=== PATIENT | female | born 1955 | race Caucasian/White ===

== ENCOUNTER 2022-02-18 19:34 | Emergency (ER) | payer OTHER ==
[2022-02-18] MEDS ORDERED: ACETAMINOPHEN 500 MG TAB ONE (20:56)
--- NOTE | 2022-02-18 21:09 | RAD REPORT ---
EXAM DESCRIPTION: RAD - Ankle Left 3 View - 02/18/2022 8:54 pm CLINICAL HISTORY: Pain;Swelling COMPARISON: No comparisons FINDINGS: No fracture, dislocation or periosteal reaction. No joint effusion seen. No joint space na rrowing. Spurring changes are seen at the inferior aspect of the fibula and medial malleolus. Minimal avulsion from the tip of the medial malleolus cannot be excluded though this usually does not occur within inversion injury. Significant lateral soft tissue swelling is present. IMPRESSION: Left ankle soft tissue swelling with no fracture confirmed. The punctate bone density at the tip of the medial malleolus is probably chronic. The possibility of a small avulsion cannot be excluded though this usually does not occur with an inversion type injury.
--- NOTE | 2022-02-18 21:42 | EDPHYS ---
Physician Documentation [facility] Name: Edith Buck Age: 66 yrs Sex: Female : 1955 Arrival Date: 02/18/2022 Time: 19:41 Bed Treatment Private MD: ED Physician Torey Montenegro HPI: 02/18 20:30 This 66 yrs old Female presents to ER via Wheelchair with complaints of Left ankle pain.ms3 20:30 The patient presents with an injury, pain, that is acute, swelling, tenderness. The ms3 complaints affect the left ankle. Onset: The symptoms/episode began/occurred acutely, 1 hour(s) ago. Context: The problem was sustained at home, resulted from the patient falling, Deck, The mechanism of injury involved inversion of the affected ankle. Associated signs and symptoms: Pertinent positives: swelling. Modifying factors: The symptoms are alleviated by ice packs, the symptoms are aggravated by weight bearing, movement. Severity of symptoms: At their worst the symptoms were severe, in the emergency department the symptoms are unchanged. 6-year-old female with no past medical history presents for left ankle pain that began 1 hour prior to arrival after falling off a deck. Patient states she twisted her ankle when falling. Patient states her pain is a 10/10 states the pain is throbbing. Patient states the pain is better when applying ice to the area. Patient states pain is worse with bearing weight.. Historical: - Allergies: 19:49 No Known Allergies; ab2 - PMHx: 19:49 None; ab2 - PSHx: 19:49 None; ab2 - Immunization history:: Adult Immunizations up to date. - Social history:: Smoking status: Patient reports the use of cigarette tobacco products, smokes one-half pack cigarettes per day. ROS: 20:30 Constitutional: Negative for fever, and chills. Eyes: Negative for injury, pain, ms3 redness, and discharge, Neck: Negative for injury, pain, and swelling, Cardiovascular: Negative for chest pain, and palpitations. Respiratory: Negative for shortness of breath, cough, wheezing, and pleuritic chest pain, Abdomen/GI: Negative for abdominal pain, nausea, vomiting, diarrhea, and constipation, Skin: Negative for injury, rash, and discoloration, Neuro: Negative for headache, weakness, numbness, tingling. Psych: Negative for depression, anxiety, suicide ideation, homicidal ideation, and hallucinations. 20:30 MS/extremity: Positive for pain, swelling, tenderness, of the Left ankle. Exam: 20:30 Constitutional: This is a well developed, well nourished patient who is awake, alert, ms3 and in no acute distress. Head/Face: Normocephalic, atraumatic. Neck: Trachea midline, no cervical lymphadenopathy. Supple, full range of motion without nuchal rigidity, or vertebral point tenderness. No Meningismus. Chest/axilla: Normal chest wall appearance and motion. Nontender with no deformity. Cardiovascular: Regular rate and rhythm with a normal S1 and S2. No gallops, murmurs, or rubs. Normal PMI, no JVD. No pulse deficits. Respiratory: Lungs have equal breath sounds bilaterally, clear to auscultation and percussion. No rales, rhonchi or wheezes noted. No increased work of breathing, no retractions or nasal flaring. Abdomen/GI: Soft, non-tender, with normal bowel sounds. No distension or tympany. No guarding or rebound. No evidence of tenderness throughout. Skin: Warm, dry with normal turgor. Normal color with no rashes, no lesions, and no evidence of cellulitis. Psych: Awake, alert, with orientation to person, place and time. Behavior, mood, and affect are within normal limits. 20:30 Musculoskeletal/extremity: Extremities: noted in the Left ankle: ROM: limited active range of motion due to pain, in the left lateral ankle, Circulation is intact in all extremities. Sensation intact. Compartment Syndrome exam of affected extremity: is normal. no pain, no numbness, no tingling, no sensation deficit, no palor, no weak pulses. Vital Signs: 19:48 BP 155 / 65; Pulse 77; Resp 18; Temp 97.5(TE); Pulse Ox 98% on R/A; Weight 68.49 kg; ab2 Height 5 ft. 4 in. (162.56 cm); Pain 10/10; 21:34 BP 149 / 60; Pulse 72; Resp 18; Pulse Ox 100% ; ld1 19:48 Body Mass Index 25.92 (68.49 kg, 162.56 cm) ab2 MDM: 20:28 Patient medically screened. ms3 20:30 Differential diagnosis: fracture, sprain. ms3 02/19 01:47 Data reviewed: vital signs, nurses notes, radiologic studies, plain films. Counseling: ms3 I had a detailed discussion with the patient and/or guardian regarding: the historical points, exam findings, and any diagnostic results supporting the discharge/admit diagnosis, radiology results, the need for outpatient follow up, to return to the emergency department if symptoms worsen or persist or if there are any questions or concerns that arise at home. ED course: Discussed plain film findings with patient. Discussed with patient subtle acute fractures may not appear on acute x-rays. If patient's pain persist in 1 week patient may require additional imaging. Patient to follow up with Dr Garibay. Patient understands agrees with plan. All questions were answered. Return precautions discussed include worsening symptoms, or any other concerns. On reevaluation patient is alert and oriented x4, no apparent distress, nontoxic-appearing, no signs of compartment syndrome present.. 02/18 20:28 Order name: Ankle Left 3 View XRAY; Complete Time: 21:41 ms3 Administered Medications: 02/18 20:54 Drug: Tylenol 1000 mg Route: PO; ld1 Disposition Summary: 02/18/22 21:41 Discharge Ordered Location: Home ms3 Condition: Stable ms3 Diagnosis - Pain in left ankle and joints of left foot ms3 - Sprain of unspecified ligament of left ankle ms3 Followup: ms3 - With: Parish Pete MD - When: 2 - 3 days - Reason: Forms: - Medication Reconciliation Form ms3 - Thank You Letter ms3 - Antibiotic Education ms3 - Prescription Opioid Use ms3 Signatures: Dispatcher [employer] EDMS Torey Montenegro DO DO ms3 Narcisa Fofana, RN RN ld1 Ken Denney
--- NOTE | 2022-02-18 21:42 | ER ---
Nurse's Notes [facility] Name: Edith Buck Age: 66 yrs Sex: Female : 1955 Arrival Date: 02/18/2022 Time: 19:41 Bed Treatment Private MD: Diagnosis: Pain in left ankle and joints of left foot;Sprain of unspecified ligament of left ankle Presentation: 02/18 19:48 Chief complaint: Patient states: "I was cleaning the back yard and stepped down and ab2 rolled my ankle." Pt c/o L ankle pain. Coronavirus screen: Vaccine status: Patient reports receiving the 2nd dose of the covid vaccine. Client denies travel out of the [place] in the last 14 days. At this time, the client does not indicate any symptoms associated with coronavirus-19. Ebola Screen: Patient negative for fever greater than or equal to 101.5 degrees Fahrenheit, and additional compatible Ebola Virus Disease symptoms Patient denies exposure to infectious person. Patient denies travel to an Ebola-affected area in the 21 days before illness onset. No symptoms or risks identified at this time. Initial Sepsis Screen: Does the patient meet any 2 criteria? No. Patient's initial sepsis screen is negative. Does the patient have a suspected source of infection? No. Patient's initial sepsis screen is negative. Risk Assessment: Do you want to hurt yourself or someone else? Patient reports no desire to harm self or others. Onset of symptoms is unknown. 19:48 Method Of Arrival: Wheelchair ab2 19:48 Acuity: FLORA 4 ab2 Triage Assessment: 19:50 General: Appears in no apparent distress. uncomfortable, Behavior is calm, cooperative, ab2 appropriate for age. Pain: Complains of pain in left lateral ankle. Neuro: Level of Consciousness is awake, alert, obeys commands, Oriented to person, place, time, situation, Appropriate for age. Musculoskeletal: Reports pain in left lateral ankle. Historical: - Allergies: 19:49 No Known Allergies; ab2 - PMHx: 19:49 None; ab2 - PSHx: 19:49 None; ab2 - Immunization history:: Adult Immunizations up to date. - Social history:: Smoking status: Patient reports the use of cigarette tobacco products, smokes one-half pack cigarettes per day. Screenin:34 Abuse screen: Denies threats or abuse. Denies injuries from another. Nutritional ld1 screening: No deficits noted. Tuberculosis screening: No symptoms or risk factors identified. Fall Risk None identified. Assessment: 21:34 General: Appears in no apparent distress. comfortable, Behavior is calm, cooperative, ld1 appropriate for age. Pain: Complains of pain in left foot and left leg Pain does not radiate. Pain currently is 6 out of 10 on a pain scale. Quality of pain is described as throbbing. Neuro: Level of Consciousness is awake, alert, obeys commands, Oriented to person, place, time, situation. Cardiovascular: Capillary refill < 3 seconds Patient's skin is warm and dry. Respiratory: Airway is patent Respiratory effort is even, unlabored. GI: Abdomen is flat, non-distended. : No signs and/or symptoms were reported regarding the genitourinary system. EENT: No signs and/or symptoms were reported regarding the EENT system. Derm: No signs and/or symptoms reported regarding the dermatologic system. Musculoskeletal: No signs and/or symptoms reported regarding the musculoskeletal system. Vital Signs: 19:48 BP 155 / 65; Pulse 77; Resp 18; Temp 97.5(TE); Pulse Ox 98% on R/A; Weight 68.49 kg; ab2 Height 5 ft. 4 in. (162.56 cm); Pain 10/10; 21:34 BP 149 / 60; Pulse 72; Resp 18; Pulse Ox 100% ; ld1 19:48 Body Mass Index 25.92 (68.49 kg, 162.56 cm) ab2 ED Course: 19:41 Patient arrived in ED. ja2 19:49 Triage completed. ab2 19:50 Torey Montenegro DO is Attending Physician. ms3 19:50 Arm band placed on right wrist. ab2 20:53 Narcisa Fofana, SALAS is Primary Nurse. ld1 20:56 Ankle Left 3 View XRAY In Process Unspecified. EDMS 21:34 Patient has correct armband on for positive identification. Placed in gown. Bed in low ld1 position. Call light in reach. Side rails up X2. environmental monitoring technician on. Pulse ox on. NIBP on. Door closed. Noise minimized. Warm blanket given. 21:34 No provider procedures requiring assistance completed. Patient did not have IV access ld1 during this emergency room visit. 21:41 Parish Pete MD is Referral Physician. ms3 Administered Medications: 20:54 Drug: Tylenol 1000 mg Route: PO; ld1 Outcome: 21:41 Discharge ordered by . ms3 21:51 Discharged to home ambulatory. ld1 21:51 Condition: stable 21:51 Discharge instructions given to patient, Instructed on discharge instructions, follow up and referral plans. Demonstrated understanding of instructions, follow-up care. 21:52 Patient left the ED. ld1 Signatures: Dispatcher [employer] EDMS Torey Montenegro DO DO ms3 Narcisa Fofana RN RN ld1 Freda Sena Alexis ab2
[2022-02-19 02:34] VITALS: TEMP 97.5
[2022-02-19 02:35] VITALS: BP 149/60; O2SAT 100
== END 2022-02-18 21:52 | disposition home or self-care (01) ==
LOC: ER 19:34
DX: S93.402A Sprain of unspecified ligament of left ankle, initial encounter (principal); W17.89XA Other fall from one level to another, initial encounter; F17.210 Nicotine dependence, cigarettes, uncomplicated
CPT/HCPCS: 99284

== ENCOUNTER 2023-03-18 14:36 | Emergency (ER) | payer OTHER ==
--- OUTSIDE RECORDS SUMMARY | 2023-03-18 14:40 | XMS REPORT | Continuity of Care Document ---
:1955 Author Organization [facility] t Address [address] [facility] [address] [place] [address] Care Team Providers Name Role Phone Records, [facility] - Other - Primary Care Physician Thais tanishailaabel Go RN, Michelle Burris Attending Clinician Unavailable Lisa JERONIMO, Rach Murphy Attending Clinician RACH GONZALEZ Attending Clinician Unavailable Payers Payer Name Policy Type Policy Number Effective Date Expiration Date S ource Problems This patient has no known problems. Allergies, Adverse Reactions, Alerts Allergy Allergy Status Severity Reaction(s) Onset Inactive Treating Comm ents Source Name Type Date Date Clinician CODEINE [facility] [place]ICILL Allergy Active [facility] Codeine Propensi Active [facility] adverse 00:00: Medical reaction 00 Obion s Penicill Propensi Active [facility] adverse 00:00: Medical reaction 00 Obion s Family History Family Member Diagnosis Comments Start Date Stop Date Source Natural brother Liver disease [facility] Natural father Heart failure [facility] Natural mother Heart disease [facility] Natural sister Breast cancer [facility] Social History Social Habit Start Date Stop Date Quantity Comments Source Tobacco use and 2023-03-10 2023-03-10 [address] [facility]00 non-user [facility] Alcohol intake 2023-03-10 2023-03-10 [facility] (finding) Sex Ass[birth year] [facility] 00:00:00 00:00:00 [facility] Center Smoking Status Start Date Stop Date Source Never smoked tobacco [facility] Medications Ordered Filled Start Stop Current Ordering Indication Dosage Frequency Signature Comments Components Source Medication Medication Date Date Medication? Clinician (SIG) Name Name Ginger Yes 20meq QD Take [address] [facility] M20 20 mEq 4-24 tablet (20 Roney es tablet 00:00: mEq total) Medic al 00 by mouth Center in the morning. amLODIPine Yes 10mg QD Take 1 [facility] (NORVASC) 4-11 tablet (10 Luke s 10 MG 00:00: mg total) Medical tablet 00 by mouth Center in the morning. pantoprazol Yes Take by [facility] e 3-13 mouth. [facility] (PROTONIX) 00:00: Medical 40 MG 00 Center tablet Vital Signs Vital Name Observation Time Observation Value Comments Source Systolic blood 2023-03-10 10:20:00 149 mm[Hg] [facility] pressure [facility] Diastolic blood 2023-03-10 10:20:00 76 mm[Hg] [facility] S t [facility] Heart rate 2023-03-10 10:20:00 86 /min [facility] Body temperature 2023-03-10 10:20:00 36.78 Maryuri [facility] Respiratory rate 2023-03-10 10:20:00 18 /min [facility] Body height 2023-03-10 10:20:00 162.6 cm [facility] Body weight 2023-03-10 10:20:00 71.033 kg [facility] BMI 2023-03-10 10:20:00 26.88 kg/m2 [facility] Oxygen saturation in 2023-03-10 10:20:00 95 /min [facility] Arterial blood by Medical Ce nter Pulse oximetry Procedures Procedure Date / Time Performing Clinician Source Performed LIVER FIBROSIS, 2023-03-10 12:15:00 Rach Gonzalez [facility] FIBROTEST-ACTITEST PANEL [facility] BASIC METABOLIC PANEL 2023-03-10 12:07:00 Rach Gonzalez [facility] HEPATIC FUNCTION PANEL 2023-03-10 12:07:00 Rach Gonzalez [facility] CBC W/PLT COUNT & AUTO 2023-03-10 12:07:00 Rach Gonzalez [facility] PROTHROMBIN TIME/INR 2023-03-10 12:07:00 Rach Gonzalez [facility] ALPHA FETOPROTEIN (AFP), 2023-03-10 12:07:00 Rach Gonzalez [facility] TUMOR MARKER [facility] HEPATITIS C GENOTYPE 2023-03-10 12:07:00 Rach Gonzalez [facility] HEPATITIS C PCR, 2023-03-10 12:07:00 Rach Gonzalez [facility] LAB HIV-1 AG W/HIV-1&2 2023-03-10 12:07:00 Rach Gonzalez [facility] HEPATITIS B CORE ANTIBODY, 2023-03-10 12:07:00 Rach Gonzalez [facility] HEPATITIS A ANTIBODY, IGG 2023-03-10 12:07:00 Rach Gonzalez [facility] CARBOHYDRATE ANTIGEN 19-9 2023-03-10 12:07:00 Rach Gonzalez [facility] ([place] 19-9) [facility] CARCINOEMBRYONIC ANTIGEN 2023-03-10 12:07:00 Rach Gonzalez [facility] (CEA) [facility] CBC W/PLT COUNT & AUTO 2023-03-10 12:07:00 Rach Gonzalez [facility] Plan of Care Planned Activity Planned Date Details Comments Source Future Scheduled 2024-03-[address] [facility] 00:00:00 Counseling and Medical Cente r Screening (12+) [code = Tobacco Cessation Counseling and Screening (12+)] Future Scheduled 2023-07-15 INFLUENZA VACCINE [facility] 00:00:00 (Season Ended) [code = Medic al Center INFLUENZA VACCINE (Season Ended)] Future Scheduled 2022-11-[address] [facility] Test 00:00:00 (12+) [code = Medical Center DEPRESSION SCREENING (12+)] Future Scheduled 2022-11-14 FALLS RISK SCREENING [facility] Test 00:00:00 [code = FALLS RISK Medical C enter SCREENING] Future Scheduled 2022-11-14 Medicare IPPE (WELCOME [facility] 00:00:00 TO MEDICARE) [code = Medical Center Medicare IPPE (WELCOME TO MEDICARE)] Future Scheduled 2021 PNEUMOCOCCAL 65+ YRS ([address] [facility] Test 00:00:00 - PCV) [code = Medical Cente r PNEUMOCOCCAL 65+ YRS (1 - PCV)] Future Scheduled 2006 SHINGLES VACCINES ([address] [facility] Test 00:00:00 2) [code = SHINGLES Medical Center VACCINES (1 of 2)] Future Scheduled 1975 DTAP/TDAP/TD VACCINES [facility] Test 00:00:00 (1 - Tdap) [code = Medical C enter DTAP/TDAP/TD VACCINES (1 - Tdap)] Future Scheduled 1955 COVID-19 VACCINE (#1[facility] Test 00:00:00 [code = COVID-[address] VACCINE (#1)] Future Scheduled 1956 Screening for malignant [facility] Test 00:00:00 neoplasm of breast Medical C enter (procedure) [code = 003943930] Future Scheduled 1956 CT Colonography (combo) [facility] Test 00:00:00 [code = CT Colonography [facility] (combo)] Future Scheduled 1956 Screening for malignant [facility] Test 00:00:00 neoplasm of colon Medical Ce nter (procedure) [code = 851639660] Future Scheduled 1956 Screening for malignant [facility] Test 00:00:00 neoplasm of colon Medical Ce nter (procedure) [code = 578823295] Future Scheduled 1955 DXA SCAN [code = DXA [facility] Test 00:00:00 SCAN] [facility] Future Scheduled 1956 Screening for malignant [facility] Test 00:00:00 neoplasm of colon Medical Ce nter (procedure) [code = 817684975] Future Scheduled 1956 Screening for malignant [facility] Test 00:00:00 neoplasm of colon Medical Ce nter (procedure) [code = 271226909] Future Scheduled 1955 Sigmoidoscopy [facility]code [facility]] Medical Cente r Encounters Start End Encounter Admission Attending Care Care Encounter Source Date/Time Date/Time Type Type Clinicians Facility Department ID 2022-02-25 Outpatient [facility] [id number] Common 10:04:02 [facility] 2023-03-11 2023-03-11 Documentat Donavan [facility] [id number] 00:[facility] 00:00:00 ion Michelle [facility] 2023-03-10 2023-03-10 Office Lisa [facility] [id number] 10:00:00 11:00:00 Visit [facility] 2023-03-10 2023-03-10 Outpatient [facility] [id number] [facility] 00:00:00 00:00:00 [facility] 2023-03-08 2023-03-08 Outpatient SFA SFA [id number] [place] 16:19:28 16:19:28 [id number] [place] 2022-12-22 2022-12-22 Outpatient SFA SFA [id number] [place] 09:20:05 09:20:05 [id number] [facility] [place] 2022-12-01 2022-12-01 Outpatient SFA SFA [id number] [place] 09:41:49 09:41:49 [id number] [place] 2022-11-18 2022-11-18 Outpatient SFA SFA [id number] [place] 16:40:54 16:40:54 [id number] [facility] [place] 2022-11-11 2022-11-11 Outpatient SFA SFA [id number] [place] 08:28:15 08:28:15 [id number] [facility] [place] 2022-11-02 2022-11-02 Outpatient SFA SFA [place] 09:34:36 09:34:36 [facility] 2022-10-05 2022-10-05 Outpatient SFA SFA [place] 10:47:07 10:47:07 [facility] 2022-09-20 2022-09-20 Outpatient SFA SFA [place] 13:28:34 13:28:34 [facility] 2022-09-09 2022-09-09 Outpatient SFA SFA [place] 13:45:17 13:45:17 [facility] 2022-09-08 2022-09-08 Outpatient SFA SFA [place] 17:20:04 17:20:04 [facility] 2022-08-25 2022-08-25 Outpatient SFA SFA [place] 10:39:31 10:39:31 [facility] 2022-08-19 2022-08-19 Outpatient SFA SFA [place] 09:39:44 09:39:44 [facility] 2022-08-17 2022-08-17 Outpatient SFA SFA [place] 15:23:19 15:23:19 [facility] Results Test Description Test Time Test Comments Results Result Comments Source Liver Fibrosis, FibroTest-ActiTest Panel 2023-03-17 12:21:57 Test Item Value Reference Range Interpretation Comme nts Fibrosis Score (test code 0.96 = 3925335) Fibrosis Stage (test code F4 = 6698325) FIBROSIS INTERPRETATION SEE BELOW sev ere fibrosis Fibro Test (QUEST) (test code = Score ( f) Metavir Score f>=0 20151222) and f<=0.21 : F 0 (no fibrosis)f>0.21 and f<=0.27 : F0-F1 (no fib rosis)f>0.27 and f<=0.31 : F 1 (minimal fibrosis)f>0.31 and f<=0.48 : F1-F2 (minima l fibrosis)f>0.48 and f<=0.58 : F2 (moderate fibrosis)f>0.58 and f<=0.72 : F3 (advanced fibrosis)f>0.72 and f<=0.74 : F3-F4 (advanc ed fibrosis)f>0.74 and f<=1.00 : F4 (severe fibrosis) Necroinflammat Activity A1-A2 Grade (test code = 59722-2) NECROINFLAMMAT INTERP SEE BELOW minim al activity ActiTest (QUEST) (test code = Score ( a) Metavir Score a>=0 20151223) and a<=0.17 : A 0 (no activity)a>0.17 and a<=0.29 : A0-A1 (no act ivity)a>0.29 and a<=0.36 : A 1 (minimal activity)a>0.36 and a<=0.52 : A1 -A2 (minimal activity)a>0.52 and a<=0.60 : A2 (significa nt activity)a>0.60 and a<=0.62 : A2-A3 (signif icant activity)a>0.62 and a<=1.00 : A3 (severe ac tivity) Bilirubin, Total (test 2.1 mg/dL 0.2-1.2 H Suspi cion of Gilbert code = ) syndrome or hemolysis, check non conjugated bilirubin. Check if haemol ysis as bilirubin is hi gh and haptoglobin low . GGT (test code = 9738893) 34 U/L 3-65 Irby spicion of Gilbert syndrome or hem olysis, check non conjugated bilirubin. ALT (SGPT) (test code = 35 U/L 6-29 H ) ALPHA 2 MACROGLOBULIN 327 mg/dL 106-279 H (QUEST) (test code = 1329538) Haptoglobin (test code = <8 43-212 L Rachel ck if haemolysis as ) bilirubin is hi gh and haptoglobin low . Apolipoprotein A-1 (test 97 mg/dL 101-198 L code = 8303218) NECROINFLAM ACT SCORE 0.38 (QUEST) (test code = 5054874) REFERENCE ID (QUEST) [id number] (test code = 4344855) FOOTNOTE (QUEST) (test SEE BELOW The reliability of results code = 5513818) is dependent on compliance with the preana lytical and analytical cond itions recommended by [employer]. The tests have to be defe rred for: acute hemolysis , acute hepatitis, acut e inflammation, e xtra hepatic cholestasis. Th e advice of a specialist subhash ld be sought for interpretat ion in chronic hemolys is and Gilbert's syndr ome. The test interpretation is not validated in li bhupinder transplant melvina ents. Isolated extrem e values of one of the comp onents should lead to caution in interpreting th e results. In case of discord ance between a biopsy result and a test, it is recommend ed to seek the advice of a specialist. The causes of t hese discordances co uld be due to a flaw of the t est or to a flaw in the bio psy: i.e. a liver biopsy mcnulty s a 33% variability rat e for one fibrosis stage. FibroTest is interpretable f or chronic hepatitis B and C, alcoholic and non alcohol ic steatosis. ActiTest is int erpretable for chronic hep atitis B and C. The performa nce characteristics have been determined by [facility]. It has not been cleared or appr ovedby the U.S. Food and D rug Administration. Performance characteristics referto the analytical perf ormance of the test. Quest , [employer], th e associated logo, Nisa Diaz nstitute and allassociated [employer] xiomy weber are the registered trad emarks of [employer]. All third democrat huynh - ( R) and (TM) - are the propert y of theirrespective owners. (C) [phone] [employer]. A ll rightsreserved. WILVER (test code = WILVER) Performing Lab EZ [employer] [facility] [address] [facility] [address] Joe Rodriguez MD, PhD, SCOTT Lab Interpretation (test Abnormal code = 75867-5) [facility], [id number] 05:44:38 Test Item Value Reference Range Interpretation Comments HCV NUMERIC RESULT (BEAKER) 1059357 IU/mL <15 H (test code = 2700) ALPHA FETOPROTEIN (AFP), TUMOR [id number] 14:56:57 Test Item Value Reference Range Interpretation Comments ALPHA-FETOPROTEIN (BEAKER) (test 9109.5 ng/mL <10.0 H code = 1094) Vp Product Management ID - ADMINOperator ID - ADMINHEPATITIS A ANTIBODY, [id number] 14:52:32 Test Item Value Reference Range Interpretation Comments HEPATITIS A IGG ANTIBODY (BEAKER) Nonreactive Nonreactive (test code = 2797) Vp Product Management ID - ADMINHEPATITIS B CORE ANTIBODY, [id number] 14:52:32 Test Item Value Reference Range Interpretation Comments HEPATITIS B CORE TOTAL ANTIBODY Nonreactive Nonreactive (BEAKER) (test code = 497) Vp Product Management ID - ADMINHIV-1 ANTIGEN WITH HIV-1/2 [id number] 14:52:32 Test Item Value Reference Range Interpretation Comments HIV-1 ANTIGEN WITH HIV 1\T\2 Nonreactive Nonreactive ANTIBODY (2) (BEAKER) (test code = 2586) Vp Product Management ID - ADMINCARCINOEMBRYONIC ANTIGEN (CEA)2023-03-10 14:52:26 Test Item Value Reference Range Interpretation Comments CARCINOEMBRYONIC ANTIGEN (BEAKER) 4.1 ng/mL 0.0-5.0 (test code = 685) Vp Product Management ID - ADMINBASIC METABOLIC [id number] 14:07:03 Test Item Value Reference Range Interpretation Comments SODIUM (BEAKER) 135 meq/L 136-145 L (test code = 381) POTASSIUM 3.6 meq/L 3.5-5.1 (BEAKER) (test code = 379) CHLORIDE (BEAKER) 103 meq/L 98-107 (test code = 382) CO2 (BEAKER) 23 meq/L 22-29 (test code = 355) BLOOD UREA 11 mg/dL 7-21 NITROGEN (BEAKER) (test code = 354) CREATININE 0.75 mg/dL 0.57-1.25 (BEAKER) (test code = 358) GLUCOSE RANDOM 84 mg/dL 70-105 (BEAKER) (test code = 652) CALCIUM (BEAKER) 8.6 mg/dL 8.4-10.2 (test code = 697) EGFR (BEAKER) 88 Interpretatio n of eGFR (test code = mL/min/1.73 values Stage De scription 1092) sq m Result G1 Che l or high >=90 G2 Mildly decreased 60-89 G3a Mildl y to moderately 45-5 9 G3b Moderately to s everely 30-44 G4 Severl y decreased 15-29 G5 Kidney failure <15Reported eGF R is based on the CKD-EPI 202 equation that d oes not use a race coefficientEsti mated GFR is not as accur ate as Creatinine Sveta molly in predicting glom erular filtration rate . Estimated GFR is not appl icable for dialysis patien ts Vp Product Management ID - ADMINSpecimen slightly ictericHEPATIC FUNCTION [id number] 14:07:03 Test Item Value Reference Range Interpretation Comments TOTAL PROTEIN (BEAKER) (test code = 6.9 gm/dL 6.0-8.3 770) ALBUMIN (BEAKER) (test code = 1145) 3.3 g/dL 3.5-5.0 L BILIRUBIN TOTAL (BEAKER) (test code 3.1 mg/dL 0.2-1.2 H = 377) BILIRUBIN DIRECT (BEAKER) (test 1.6 mg/dL 0.1-0.5 H code = 706) ALKALINE PHOSPHATASE (BEAKER) (test 100 U/L 40-150 code = 346) AST (SGOT) (BEAKER) (test code = 75 U/L 5-34 H 353) ALT (SGPT) (BEAKER) (test code = 39 U/L 6-55 347) Vp Product Management ID - ADMINSpecimen slightly ictericPROTHROMBIN TIME/[id number] 13:25:20 Test Item Value Reference Range Interpretation Comments PROTIME (BEAKER) (test code = 16.1 seconds 11.9-14.2 H 759) INR (BEAKER) (test code = 370) 1.38 <=5.90 RECOMMENDED COUMADIN/WARFARIN INR THERAPY RANGESSTANDARD DOSE: 2.0 - 3.0 Includes: PROPHYLAXIS for venous thrombosis, systemic embolization; TREATMENT for venous thrombosis and/or pulmonary embolus.HIGH RISK: Target INR is 2.5-3.5 for patients with mechanical heart valves.CBC W/PLT COUNT & AUTO [id number] 13:17:55 Test Item Value Reference Range Interpretation Comments WHITE BLOOD CELL COUNT (BEAKER) 5.5 K/ L 3.5-10.5 (test code = 775) RED BLOOD CELL COUNT (BEAKER) 4.14 M/ L 3.93-5.22 (test code = 761) HEMOGLOBIN (BEAKER) (test code = 12.7 GM/DL 11.2-15.7 410) HEMATOCRIT (BEAKER) (test code = 36.8 % 34.1-44.9 411) MEAN CORPUSCULAR VOLUME (BEAKER) 89 fL 79-95 (test code = 753) MEAN CORPUSCULAR HEMOGLOBIN 30.7 pg 25.6-32.2 (BEAKER) (test code = 751) MEAN CORPUSCULAR HEMOGLOBIN CONC 34.5 GM/DL 32.2-35.5 (BEAKER) (test code = 752) RED CELL DISTRIBUTION WIDTH 15.0 % 11.7-14.4 H (BEAKER) (test code = 412) PLATELET COUNT (BEAKER) (test 160 K/CU MM 150-450 code = 756) MEAN PLATELET VOLUME (BEAKER) 10.3 fL 9.4-12.3 (test code = 754) NUCLEATED RED BLOOD CELLS 0 /100 WBC 0-0 (BEAKER) (test code = 413) NEUTROPHILS RELATIVE PERCENT 64 % (BEAKER) (test code = 429) LYMPHOCYTES RELATIVE PERCENT 24 % (BEAKER) (test code = 430) MONOCYTES RELATIVE PERCENT 9 % (BEAKER) (test code = 431) EOSINOPHILS RELATIVE PERCENT 2 % (BEAKER) (test code = 432) BASOPHILS RELATIVE PERCENT 1 % (BEAKER) (test code = 437) NEUTROPHILS ABSOLUTE COUNT 3.53 K/ L 1.56-6.13 (BEAKER) (test code = 670) LYMPHOCYTES ABSOLUTE COUNT 1.31 K/ L 1.18-3.74 (BEAKER) (test code = 414) MONOCYTES ABSOLUTE COUNT (BEAKER) 0.49 K/ L 0.24-0.36 H (test code = 415) EOSINOPHILS ABSOLUTE COUNT 0.09 K/ L 0.04-0.36 (BEAKER) (test code = 416) BASOPHILS ABSOLUTE COUNT (BEAKER) 0.07 K/ L 0.01-0.08 (test code = 417) IMMATURE GRANULOCYTES-RELATIVE 0.20 % 0.00-1.00 PERCENT (BEAKER) (test code = 2801) HEPATITIS C [id number] 13:15:29 Test Item Value Reference Range Interpretation Comments HEPATITIS C GENOTYPE 3 Assay methodology is (test code = 77184) real-micheal e PCR amplification of the 5'UTR an dNS5b regions of the HCV lisa me utilizing the VODECLIC Real Time HCVGenotype II assay and Holm HCV Lisa type Plus assay. Possible genotypes include 1a, 1b, 2, 3, 4, 5, and 6. UNLESS O THERWISE INDICATED, ALL TESTING PERFORMED [facility] PATHOLOGY FOR[facility], [facility]. [address] [place] [id number] LABORATOR Y DIRECTOR: JORGE CONDE M.D. CLIA NUMBER [id number] CAP ACCREDITATION N O. [id number] AFP, TUMOR [id number] 09:35:09 Test Item Value Reference Range Interpretation Comments AFP, TUMOR MARKER 33816.00 NG/ML See_Comment H [Automa murtaza message] (test code = The system [facility] Labsic h 71079) generated this result transmitted ref erence range: <=8.30. The reference range was not used to int erpret this result as normal/abnormal . DAVION (ANTI-NUCLEAR AB) WITH REFLEX [id number] 00:57:23 Test Item Value Reference Range Interpretation Comments ANTI-NUCLEAR POSITIVE NEGATIVE A ANTIBODIES (test code = 3506) DAVION PATTERN SEE BELOW (REPORTED TITER) (test code = 72115) HOMOGENEOUS (test 1:320 TITER NEGATIVE H code = 89640) SPECKLED (test NEGATIVE TITER NEGATIVE code = 420736) DENSE FINE NEGATIVE TITER NEGATIVE SPECKLED (test code = 29909) CENTROMERE (test NEGATIVE TITER NEGATIVE code = 016676) COARSE SPECKLED NEGATIVE TITER NEGATIVE (test code = 775734) DISCRETE NUCLEAR NEGATIVE TITER NEGATIVE DOTS (test code = 428699) NUCLEOLAR (test NEGATIVE TITER NEGATIVE code = 667300) NUCLEAR MEMBRANE NEGATIVE TITER NEGATIVE (test code = 627901) CYTO. RETICULAR NEGATIVE NEGATIVE (REUBEN) (test code = 875032) COMMENTS (test NONE code = 862602) METHOD (test code (NOTE) NOTE: EFF ECTIVE = 01182) 06/21/2022, MET HOD IS TRANSITIONED TO THE INOVADIAGNOSTIC S NOVA VIEW IFA PLATFO RM. THE METHOD INCLUDES A SCREENTHRESHOLD OF 1:80, DIGITIZED AND COMPUTER ALGORITHM-NOLBERTO TEDINTE RPRETATION OF T ITERS AND DIGITAL PAT TERNS, AND HEp-2 CELLL INE SUBSTRATE. FINESSE TIONAL UNUSUAL PATTERN S WILL BE GIVEN ASCOMM ENTS. FOR MORE INFORM ATION, SEE [email or web address] [id number] 06:51:48 Test Item Value Reference Range Interpretation Comments FERRITIN (test code = 2075) 333 NG/ML 13-200 H VITAMIN B 12 AND FOLIC [id number] 06:51:48 Test Item Value Reference Range Interpretation Comments VITAMIN B-12 (test 1938 PG/ML 200-950 H code = 2840) FOLIC ACID (test 6.6 UG/L SEE BELOW INTE RPRETIVE code = 2695) RANGES DE FICIENCY . . . . . . . . . . . . . . . UG/L <4.0 POSSIBLE DEFICIENCY. . . . . . . . . . . UG/L 4. 0-5.9 SUFFICIENT . . . . . . . . . . . . . . . UG/L >=6.0 UNLESS OT HERWISE INDICATED, ALL TESTING PERFORMED [facility] [email or web address], [facility]. [address] [place] [address] 4 LABORATORY DIRE CTOR: JORGE CONDE M.D. CLIA NUMBER [id number] [place] [id number] HEPATITIS PANEL, [id number] 05:14:35 Test Item Value Reference Range Interpretation Comments HEPATITIS A IgM (test NON-REACTIVE NON-REACTIVE code = 53472) HEPATITIS B CORE IgM NON-REACTIVE NON-REACTIVE (test code = 4644) HEPATITIS B SURF AG NON-REACTIVE NON-REACTIVE (test code = 2739) HEPATITIS C ANTIBODY REACTIVE NON-REACTIVE A (test code = 4675) INTERPRETATION (NOTE) Hepatitis A HEPATITIS A: (test serology shows no code = 2552) evidence of acu te hepatitis A. INTERPRETATION (NOTE) Hepatitis B HEPATITIS B: (test serology shows no code = 07661) evidence of ac [place] hepatitis B and no indication of exposure to hepatitis B vir us in the previous si xto eight months. INTERPRETATION (NOTE) Hepatitis C HEPATITIS C: (test serology is code = 82372) consistent wit h exposure to hepatitis Cviru s. The CDC recomme nds performing a supplemental confirmatory te ston initial positiv e hepatitis C ant ibody tests. HCV PCR quantitativecan be used to confirm these results o n a new sample (See MMWR, 2003;52 R R-3). [id number] 04:48:58 Test Item Value Reference Range Interpretation Comments GGT (test code = 2216) 63 U/L <40 H [id number] 04:48:58 Test Item Value Reference Range Interpretation Comments TRANSFERRIN (test code = 4936) 210 MG/DL 200-360 IRON BINDING CAPACITY AND IRON AND % [id number] 04:48:29 Test Item Value Reference Range Interpretation Comments IRON, SERUM (test code = 222) 117 UG/DL 37-145 UNSATURATED IBC (test code = 61223) 141 UG/DL 112-347 CALC TOTAL IBC (test code = 2076) 258 UG/DL 250-450 CALC % IRON SAT (test code = 2078) 45 % 20-50 HEMOGLOBIN [id number] 11:45:56 Test Item Value Reference Range Interpretation Comments HEMOGLOBIN A1c (test code = 88954) 5.0 % 4.2-5.6 LIPID [id number] 07:24:18 Test Item Value Reference Range Interpretation Comments CHOLESTEROL (test 158 MG/DL <200 code = 2210) TRIGLYCERIDES (test 60 MG/DL <150 code = 2232) HDL CHOLESTEROL (test 53 MG/DL >39 code = 2220) CALC LDL CHOL (test 90 MG/DL <100 NOTE: C ALCULATED LDL code = 2237) IS BASED ON RANDA-GRAVES METHOD WHICHINCLUDES ADJUSTABLE TRIGLYCERIDE:VL DL CHOLESTEROL RAT IO.THIS FACTOR VARIES B Y MEASURED TRIGLY CERIDE AND NON-HDLCHOL ESTEROL CONCENTRATIONS WITH INCREASED CALCU LATED LDL SEENIN HIGH ER TRIGLYCERIDE OR LOWER NON-HDL SPECIME NS. FOR MOREINFORMATION , SEE CLIENT ANNOUNCE MENT AT [email or web address] LDL/HDL 1.70 RATIO <3.22 (test code = 2238) COMPREHENSIVE METABOLIC [id number] 07:24:18 Test Item Value Reference Range Interpretation Comments GLUCOSE (test code = 84 MG/DL 70-99 2216) BUN (test code = 11 MG/DL 8-23 2207) CREATININE (test 0.55 MG/DL 0.60-1.30 L code = 2214) eGFR (2020 CKD-EPI) 101 >60 (test code = 09936) ML/MIN/1.73 CALC BUN/CREAT (test 20 RATIO 6-28 code = 2235) SODIUM (test code = 142 MEQ/L 894-167 9164) POTASSIUM (test code 3.8 MEQ/L 3.5-5.4 = 2227) CHLORIDE (test code 108 MEQ/L 95-107 H = 2214) CARBON DIOXIDE (test 23 MEQ/L 19-31 code = 2206) CALCIUM (test code = 8.2 MG/DL 8.5-10.5 L 2208) PROTEIN, TOTAL (test 6.2 G/DL 6.1-8.3 code = 222) ALBUMIN (test code = 3.5 G/DL 3.5-5.2 2200) CALC GLOBULIN (test 2.7 G/DL 1.9-3.7 code = 224) CALC A/G RATIO (test 1.3 RATIO 1.0-2.6 code = 223) BILIRUBIN, TOTAL 1.7 MG/DL See_Comment H [Automated message] (test code = 220) The syste m which generated this result transmitted ref erence range: <=1.2. T he reference range was not used to int erpret this result as normal/abnormal . ALKALINE PHOSPHATASE 166 U/L 40-142 H (test code = 2203) AST (test code = 124 U/L 9-40 H 2217) ALT (test code = 79 U/L 5-40 H UNLESS OTH ERWISE 2218) INDICATED, ALL TESTING PERFORM [facility] [place]. [address] [place] [id number] [facility] DIRECTOR: Karely MORENOIA NUMBER [id number] CAP ACCREDITATION N O. [id number]
--- NOTE | 2023-03-18 15:34 | RAD REPORT ---
EXAM DESCRIPTION: RAD - Chest Single View - 03/18/2023 3:28 pm CLINICAL HISTORY: CHEST PAIN COMPARISON: <Comparisons> FINDINGS: Lines: None. Lungs: Nonspecific prominence of the pulmonary interstitium. Pleural: No significant pleural effusions or pneumothorax. Cardiac: The heart size is within normal limits. Mediastinum: Within normal limits. Bones: No acute fractures. Other: None IMPRESSION: Increased prominence of the pulmonary interstitium could reflect vascular congestion. No consolidative airspace disease.
[2023-03-18 15:57] LABS: Hematocrit 35.6 % (36.0-45.0); Lymphocytes % 19.6 % (15.3-44.8); MCV 93.6 fL (80-100); RBC Red Blood Cell Count 3.81 M/uL (3.86-4.86)
[2023-03-18 16:00] LABS: Protime INR 1.25
[2023-03-18 16:14] LABS: Bilirubin Total 3.1 mg/dL (0.2-1.0); Potassium 3.3 mEq/L (3.5-5.1); Protein, Total 6.7 g/dL (6.4-8.2)
[2023-03-18 17:18] LABS: Specific Gravity 1.019 (1.005-1.030); Urine Bacteria >50 /HPF (<20); Urine Bilirubin 1+ (Negative); Urine Blood Trace (Negative); Urine Clarity Turbid (Clear); Urine Color Yellow (Yellow); Urine Glucose NEGATIVE (Negative); Urine Mucus 2+ /HPF (None Seen); Urine Protein 1+ (Negative); Urine Urobilinogen 2+ (Normal); Urine pH 5.5 (5.0-7.0)
[2023-03-18] MEDS ORDERED: FUROSEMIDE 40 MG/4 ML VIAL ONE (18:14)
[2023-03-18 18:37] LABS: Appearance CLEAR (CLEAR); Body Fluid Source PERITONEAL; Color of fluid Yellow (COLORLESS)
[2023-03-18 18:38] LABS: Body Fluid WBC 87 /mm^3
--- NOTE | 2023-03-18 18:44 | EDPHYS ---
Physician Documentation [facility] Name: Edith Buck Age: 67 yrs Sex: Female : 1955 Arrival Date: 03/18/2023 Time: 14:36 Bed 12 Private MD: ED Physician Reza Farr HPI: 03/18 15:42 This 67 yrs old Female presents to ER via Ambulatory with complaints of bs3 Abdominal Pain. 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 . Historical: - Allergies: 15:30 Codeine; iw 15:30 PENICILLINS; iw 15:30 Amoxicillin; iw ROS: 15:42 Constitutional: Negative for fever, chills bs3 15:42 All other systems are negative. Exam: 15:42 Constitutional: This is a well developed, well nourished patient who is awake, alert, bs3 and in no acute distress. Head/Face: Normocephalic, atraumatic. Eyes: Pupils equal round and reactive to light, extra-ocular motions intact. Lids and lashes normal. ENT: mmm, no posterior phyarngeal erythema Neck: Trachea midline, no thyromegaly, no neck stiffness Chest/axilla: Normal chest wall appearance and motion. Nontender with no deformity. No lesions are appreciated. Cardiovascular: Regular rate and rhythm with a normal S1 and S2. symmetric pulses in upper extremities Respiratory: Lungs have equal breath sounds bilaterally, clear to auscultation, no respiratory distress Abdomen/GI: distention, no guarding Skin: Warm, dry with normal turgor. Normal color with no rashes, no lesions, and no evidence of cellulitis. MS/ Extremity: Pulses equal, no cyanosis. Neurovascular intact. Full, normal range of motion. Neuro: Awake and alert, GCS 15, oriented to person, place, time, and situation. Cranial nerves II-XII grossly intact. Motor strength 5/5 in all extremities. Sensory grossly intact. Psych: Awake, alert, with orientation to person, place and time. Behavior, mood, and affect are within normal limits. 17:21 ns Rhythm at [address] elevation or depression QTc 521 bs3 Vital Signs: 15:29 BP 148 / 69; Pulse 97; Resp 18; Temp 98.1; Pulse Ox 96% on R/A; iw 17:30 BP 143 / 77; Pulse 89; Resp 18 S; Pulse Ox 98% on R/A; Pain 0/10; kc6 17:30 Pain Scale: Adult kc6 Procedures: 17:21 Paracentesis: The risks and benefits of the procedure were discussed with the patient bs3 or guardian in detail, aseptic technique was employed throughout the procedure, the catheter was placed in the right lower quadrant, appoximately .8 liters of fluid was removed, the fluid was normal, the patient tolerated the procedure well, the patient did not experience any apparent complications. MDM: 15:00 Patient medically screened. bs3 15:42 Differential diagnosis: non-specific abd pain, pancreatitis, Peptic Ulcer Disease, bs3 decompensated cirrhosis. Data reviewed: vital signs, nurses notes. 15:46 ED course: bedside US demonstrated fluid in pelvis, will do diagnostic, possibly bs3 therapeutic paracentesis. . 17:21 ED course: labs neg for acute pathology, possible mild overload, likely related to bs3 cirrhosis, pt has excellent f/u with her GI and I advised to f/u with him this week. Return prec given. . 18:01 ED course: pt reassessed, feeling well, pt with likely mild decompensated cirrhosis, bs3 but otherwise well appearing, will dc home. . 03/18 15:10 Order name: CBC with Diff; Complete Time: 16:32 bs3 03/18 15:10 Order name: Comprehensive Metabolic Panel; Complete Time: 16:32 bs3 03/18 15:10 Order name: Lipase; Complete Time: 16:32 bs3 03/18 15:10 Order name: PT-INR; Complete Time: 16:32 bs3 03/18 15:10 Order name: Urinalysis w/ reflexes; Complete Time: 17:22 bs3 03/18 16:32 Order name: Fluid Cell Count,Body bs3 03/18 18:43 Interpretation: Reviewed. cp 03/18 16:32 Order name: Body Fluid Culture bs3 03/18 18:43 Interpretation: Within normal limits. cp 03/18 16:33 Order name: BNP; Complete Time: 17:22 bs3 03/18 15:10 Order name: XRAY Chest (1 view); Complete Time: 16:32 bs3 03/18 15:41 Order name: Paracentesis Proc Guidance; Complete Time: 17:27 EDMN 03/18 16:33 Order name: EKG - Nurse/Tech; Complete Time: 17:00 bs3 Administered Medications: 18:11 Drug: Furosemide IVP 40 mg Route: IVP; Site: right forearm; kc6 18:57 Follow up: Response: No adverse reaction kc6 Disposition Summary: 03/18/23 18:43 Discharge Ordered Location: Home cp Problem: new cp Symptoms: have improved cp Condition: Stable cp Diagnosis - Alcoholic cirrhosis of liver with ascites cp - Acute pulmonary edema cp Followup: bs3 - With: Private Physician - When: 2 - 3 days - Reason: Re-evaluation by your physician Discharge Instructions: - Ascites cp - Discharge Summary Sheet bs3 - Cirrhosis bs3 - Shortness of Breath, Adult, [id number] bs3 Forms: - Medication Reconciliation Form cp - Thank You Letter cp - Antibiotic Education cp - Prescription Opioid Use cp Signatures: Dispatcher [employer] Tia Izquierdo, RN RN Julian Manzano PA PA cp Campbell, Kaitlyn, RN RN kc6 Reza Farr MD MD bs3
--- NOTE | 2023-03-18 18:44 | ER ---
Nurse's Notes [facility] Name: Edith Buck Age: 67 yrs Sex: Female : 1955 Arrival Date: 03/18/2023 Time: 14:36 Bed 12 Private MD: Diagnosis: Alcoholic cirrhosis of liver with ascites;Acute pulmonary edema Presentation: 03/18 15:29 Chief complaint: Patient states: SOB and abd distention X 2 days, recent diagnosis of iw cirrhosis of liver. Coronavirus screen: At this time, the client does not indicate any symptoms associated with coronavirus-19. Ebola Screen: Patient negative for fever greater than or equal to 101.5 degrees Fahrenheit, and additional compatible Ebola Virus Disease symptoms Patient denies exposure to infectious person. Patient denies travel to an Ebola-affected area in the 21 days before illness onset. No symptoms or risks identified at this time. Initial Sepsis Screen: Does the patient meet any 2 criteria? No. Patient's initial sepsis screen is negative. Does the patient have a suspected source of infection? No. Patient's initial sepsis screen is negative. Risk Assessment: Do you want to hurt yourself or someone else? Patient reports no desire to harm self or others. Onset of symptoms was March 16, 2023. 15:29 Method Of Arrival: Ambulatory iw 15:29 Acuity: FLORA 3 iw Historical: - Allergies: 15:30 Codeine; iw 15:30 PENICILLINS; iw 15:30 Amoxicillin; iw Screenin:23 [facility] ED Fall Risk Assessment (Adult) History of falling in the last 3 months, kc6 including since admission No falls in past 3 months (0 pts) Confusion or Disorientation No (0 pts) Intoxicated or Sedated No (0 pts) Impaired Gait No (0 pts) Mobility Assist Device Used No (0 pt) Altered Elimination No (0 pt) Score/Fall Risk Level 0 - 2 = Low Risk Oriented to surroundings, Maintained a safe environment, Educated pt \T\ family on fall prevention, incl call for assistance when getting out of bed, Assessed \T\ reinforced patient's understanding of fall precautions, Hourly rounding (assess needs \T\ fall precautionary measures) done. Abuse screen: Denies threats or abuse. Denies injuries from another. Nutritional screening: No deficits noted. Tuberculosis screening: No symptoms or risk factors identified. Assessment: 15:41 General: Appears in no apparent distress. comfortable, Behavior is calm, cooperative, kc6 appropriate for age. Pain: Complains of pain in abdomen. Neuro: Hardin Agitation-Sedation Scale (RASS): 0 - Alert and Calm Level of Consciousness is awake, alert, obeys commands, Oriented to person, place, time, situation, Appropriate for age. Cardiovascular: Capillary refill < 3 seconds. Respiratory: Airway is patent Trachea midline Respiratory effort is even, unlabored, Respiratory pattern is regular, symmetrical. GI: Abdomen is round distended, noted to have ascites, Bowel sounds present X 4 quads. : No signs and/or symptoms were reported regarding the genitourinary system. EENT: No signs and/or symptoms were reported regarding the EENT system. Derm: No signs and/or symptoms reported regarding the dermatologic system. Skin is intact, Skin is pink, warm \T\ dry. Musculoskeletal: No signs and/or symptoms reported regarding the musculoskeletal system. Circulation, motion, and sensation intact. Capillary refill < 3 seconds, Range of motion: intact in all extremities. 16:41 Reassessment: Patient appears in no apparent distress at this time. No changes from kc6 previously documented assessment. Patient and/or family updated on plan of care and expected duration. Pain level reassessed. Patient is alert, oriented x 3, equal unlabored respirations, skin warm/dry/pink. 17:41 Reassessment: Patient appears in no apparent distress at this time. No changes from kc6 previously documented assessment. Patient and/or family updated on plan of care and expected duration. Pain level reassessed. Patient is alert, oriented x 3, equal unlabored respirations, skin warm/dry/pink. Vital Signs: 15:29 BP 148 / 69; Pulse 97; Resp 18; Temp 98.1; Pulse Ox 96% on R/A; iw 17:30 BP 143 / 77; Pulse 89; Resp 18 S; Pulse Ox 98% on R/A; Pain 0/10; kc6 17:30 Pain Scale: Adult kc6 ED Course: 14:37 Patient arrived in ED. ts1 15:00 Reza Farr MD is Attending Physician. bs3 15:21 Kimmy Camarena, SALAS is Primary Nurse. kc6 15:30 XRAY Chest (1 view) In Process Unspecified. EDMS 15:30 Triage completed. iw 15:31 Arm band placed on. iw 15:40 Missed attempt(s): 20 gauge in right antecubital area. Missed attempt(s): 22 gauge in kc6 left hand. 15:42 Patient has correct armband on for positive identification. Bed in low position. Call kc6 light in reach. Side rails up X 1. Adult w/ patient. 15:52 Initial lab(s) drawn, by me, sent to lab. Inserted saline lock: 22 gauge in right iw forearm, using aseptic technique. Blood collected. 16:33 Paracentesis Proc Guidance In Process Unspecified. EDMS 17:45 paracentesis. kc6 18:57 IV discontinued, intact, bleeding controlled, No redness/swelling at site. Pressure kc6 dressing applied. Administered Medications: 18:11 Drug: Furosemide IVP 40 mg Route: IVP; Site: right forearm; kc6 18:57 Follow up: Response: No adverse reaction kc6 Medication: 18:58 VIS not applicable for this client. kc6 Outcome: 18:43 Discharge ordered by . cp 18:58 Discharged to home ambulatory, with family. kc6 18:58 Condition: improved 18:58 Discharge instructions given to patient, Instructed on discharge instructions, follow up and referral plans. Demonstrated understanding of instructions, follow-up care. 18:58 Patient left the ED. kc6 Signatures: Dispatcher [employer] Tia Izquierdo RN RN iw Julian Hines PA PA cp Campbell, Kaitlyn, RN RN kc6 Reza Farr MD MD bs3 Carolynn Swift PAS PAS ts1 Corrections: (The following items were deleted from the chart) 18:58 18:57 paracentesis kc6 kc6
[2023-03-18 19:03] VITALS: TEMP 98.1
[2023-03-18 19:05] VITALS: BP 143/77; O2SAT 98
== END 2023-03-18 18:58 | disposition home or self-care (01) ==
LOC: ER 14:36
DX: K70.31 Alcoholic cirrhosis of liver with ascites (principal); J81.0 Acute pulmonary edema; Z88.0 Allergy status to penicillin; Z88.1 Allergy status to other antibiotic agents; Z88.5 Allergy status to narcotic agent
CPT/HCPCS: 87070; 85025; 81001; 36415; 89050; 85610; 83690; 80053; 83880; 71045; 49083; 96374; 99284; J1940; 93005

== ENCOUNTER 2023-03-22 16:12 | Emergency (ER) | payer OTHER ==
--- OUTSIDE RECORDS SUMMARY | 2023-03-22 16:16 | XMS REPORT | Continuity of Care Document ---
:1955 Author Organization [facility] t Address [address] [facility] [address] [place] [address] Care Team Providers Name Role Phone Records, [facility] - Other - Primary Care Physician Thais vailable Aliyah Perez Attending Clinician [phone] Carlos MARINA, Marion Attending Clinician Unavailable Balaji Vazquez Attending Clinician Unavailable Donavan MARINA, Michelle Burris Attending Clinician Unavailable Lisa JERONIMO, Rach Murphy Attending Clinician RACH GONZALEZ Attending Clinician Unavailable Payers Payer Name Policy Type Policy Number Effective Date Expiration Date S ource Problems This patient has no known problems. Allergies, Adverse Reactions, Alerts Allergy Allergy Status Severity Reaction(s) Onset Inactive Treating Comm ents Source Name Type Date Date Clinician Penicill Propensi [facility] adverse [facility]: Medical reaction 00 Center s Codeine Propensi Active [facility] adverse 00:00: Medical reaction 00 Center s CODEINE Allergy Active [facility] 00:[facility]: Medical 00 Center PENICILL Allergy Active [facility] Medical 00 Center Family History Family Member Diagnosis Comments Start Date Stop Date Source Natural brother Liver disease [facility] Natural father Heart failure [facility] Natural mother Heart disease [facility] Natural sister Breast cancer [facility] Social History Social Habit Start Date Stop Date Quantity Comments Source Tobacco use and 2023-03-10 2023-03-10 [address] [facility] exposure [facility]00 00[facility]00:00 non-user [facility] Center Alcohol intake 2023-03-10 2023-03-10 [facility] (finding) Sex Ass[birth year] [facility] kes 00:00:00 00:00:00 Medical Center Smoking Status Start Date Stop Date Source Never smoked tobacco [facility] Medications Ordered Filled Start Stop Current Ordering Indication Dosage Frequency Signature Comments Components Source Medication Medication Date Date Medication? Clinician (SIG) Name Name Ginger Yes 20meq QD Take [address] [facility] M20 20 mEq 4-24 tablet (20 Roney es tablet 00:00: mEq total) Medic al 00 by mouth Center in the morning. hydroCHLORO 2022-0 Yes 12.5mg QD Take [address] thiazide 4-24 tablet [facility] (HYDRODIURI 00:00: (12.5 mg Me dical L) 12.5 MG 00 total) by Cent er tablet mouth in the morning. HelenaCon Yes 20meq QD Take [address] [facility] [address] M20 20 mEq 4-24 tablet (20 Roney es tablet 00:00: mEq total) Medic al 00 by mouth Center in the morning. amLODIPine 2022-0 Yes 10mg QD Take 1 [facility] (NORVASC) 4-11 tablet (10 Luke s 10 MG 00:00: mg total) Medical tablet 00 by mouth Center in the morning. amLODIPine 3-0 Yes 10mg QD Take 1 [facility] (NORVASC) 4-11 tablet (10 Luke s 10 MG 00:00: mg total) Medical tablet 00 by mouth Center in the morning. pantoprazol 3-0 Yes Take by [facility] 3-13 [facility]. [facility] (PROTONIX) 00:00: Medical 40 MG 00 Center tablet pantoprazol 3-0 Yes Take by [facility] 3-13 mouth. [facility] (PROTONIX) 00:00: Medical 40 MG 00 Center tablet Vital Signs Vital Name Observation Time Observation Value Comments Source Systolic blood 2023-03-10 10:20:00 149 mm[Hg] [facility] Diastolic blood 2023-03-10 10:20:00 76 mm[Hg] [facility] Heart rate 2023-03-10 10:20:00 86 /min [facility] Body temperature 2023-03-10 10:20:00 36.78 Maryuri [facility] Respiratory rate 2023-03-10 10:20:00 18 /min [facility] Body height 2023-03-10 10:20:00 162.6 cm [facility] Body weight 2023-03-10 10:20:00 71.033 kg [facility] BMI 2023-03-10 10:20:00 26.88 kg/m2 [facility] Oxygen saturation in 2023-03-10 10:20:00 95 /min [facility] Arterial blood by Medical Ce nter Pulse oximetry Procedures Procedure Date / Time Performing Clinician Source Performed LIVER FIBROSIS, 2023-03-10 12:15:00 Rach Gonzalez [facility] FIBROTEST-ACTITEST PANEL [facility] BASIC METABOLIC PANEL 2023-03-10 12:07:00 Rach Gonzalez [facility] HEPATIC FUNCTION PANEL 2023-03-10 12:07:00 Rach Gonzalez [facility] CBC W/PLT COUNT & AUTO 2023-03-10 12:07:00 Rach Gonzalez [facility] PROTHROMBIN TIME/INR 2023-03-10 12:07:00 Rach Gonzalez [facility] ALPHA FETOPROTEIN (AFP), 2023-03-10 12:07:00 Rach Gonzalez [facility] TUMOR MARKER [facility] HEPATITIS C GENOTYPE 2023-03-10 12:07:00 Rach Gonzalez [facility] HEPATITIS C PCR, 2023-03-10 12:07:00 Rach Gonzalez [facility] LAB HIV-1 AG W/HIV-1&2 2023-03-10 12:07:00 Rach Gonzalez [facility] AB [facility] HEPATITIS B CORE ANTIBODY, 2023-03-10 12:07:00 Rach Gonzalez [facility] TOTAL [facility] HEPATITIS A ANTIBODY, IGG 2023-03-10 12:07:00 Rach Gonzalez [facility] CARBOHYDRATE ANTIGEN 19-9 2023-03-10 12:07:00 Rach Gonzalez [facility] (CA 19-9) [facility] CARCINOEMBRYONIC ANTIGEN 2023-03-10 12:07:00 Rahc Gonzalez [facility] (CEA) [facility] CBC W/PLT COUNT & AUTO 2023-03-10 12:07:[address] [facility] DIFFERENTIAL [facility] Plan of Care Planned Activity Planned Date Details Comments Source Future Scheduled 2024-03-[address] [facility] Test 00:00:00 [facility] Cent[facility] r Screening (12+) [code = Tobacco Cessation Counseling and Screening (12+)] Future Scheduled 2024-03-[address] [facility] Test 00:00:00 [facility] Medical Cente r Screening (12+) [code = Tobacco Cessation Counseling and Screening (12+)] Future Scheduled 2023-07-[address] [facility] Test 00:00:00 (Season Ended) [code = Medic al Center INFLUENZA VACCINE (Season Ended)] Future Scheduled 2023-07-[address] [facility] Test 00:00:00 (Season Ended) [code [...] Medicare IPPE (WELCOME TO MEDICARE)] Future Scheduled 2022-11-[address] [...] 65+ YRS (1 - PCV)] Future Scheduled 2021 PNEUMOCOCCAL 65+ YRS ([address] [facility] Test 00:00:00 - PCV) [code = Medical Cente r PNEUMOCOCCAL 65+ YRS (1 - PCV)] Future Scheduled 2006 SHINGLES VACCINES ([address] [facility] Test 00:00:00 2) [code = SHINGLES [facility] VACCINES (1 of 2)] Future Scheduled 2006 SHINGLES VACCINES ([address] [facility] 00:00[facility]00 [facility] Future Scheduled 1975 DTAP/TDAP/TD VACCINES [facility] 00:00:00 (1 - Tdap) [code = Medical C enter DTAP/TDAP/TD VACCINES (1 - Tdap)] Future Scheduled 1975 DTAP/TDAP/TD VACCINES [facility] Test 00:00:00 (1 - Tdap) [code = Medical C enter DTAP/TDAP/TD VACCINES (1 - Tdap)] Future Scheduled 1955 COVID-19 VACCINE (#1[facility] Test 00:00:00 [code = COVID-[address] VACCINE (#1)] Future Scheduled 1955 COVID-19 VACCINE (#1[facility] 00:00:00 [code = COVID-[address] VACCINE (#1)] Future Scheduled 1956 Screening for malignant [facility] Test 00:00:00 neoplasm of breast Medical C enter (procedure) [code = 316745802] Future Scheduled 1956 CT Colonography (combo) [facility] Test 00:00:00 [code = CT Colonography [facility] (combo)] Future Scheduled 1956 Screening for malignant [facility] Test 00:00:00 neoplasm of colon Medical Ce nter (procedure) [code = 798225326] Future Scheduled 1956 Screening for malignant [facility] Test 00:00:00 neoplasm of colon Medical Ce nter (procedure) [code = 826780310] Future Scheduled 1955 DXA SCAN [code = DXA [facility] Test 00:00:00 SCAN] [facility] Future Scheduled 1956 Screening for malignant [facility] Test 00:00:00 neoplasm of colon Medical Ce nter (procedure) [code = 053861709] Future Scheduled 1956 Screening for malignant [facility] Test 00:00:00 neoplasm of colon Medical Ce nter (procedure) [code = 696933841] Future Scheduled 1955 Sigmoidoscopy [code = [facility] 00:[facility] Sigmoidoscopy] Medical [facility] r Future Scheduled 1956 Screening for malignant [facility] Test 00:00:00 neoplasm of breast Medical C enter (procedure) [code = 408028026] Future Scheduled 1956 CT Colonography (combo) [facility] Test 00:00:00 [code = CT Colonography [facility] (combo)] Future Scheduled 1956 Screening for malignant [facility] Test 00:00:00 neoplasm of colon Medical Ce nter (procedure) [code = 726531704] Future Scheduled 1956 Screening for malignant [facility] Test 00:00:00 neoplasm of colon Medical Ce nter (procedure) [code = 336291910] Future Scheduled 1955 DXA SCAN [code = DXA [facility] Test 00:00:00 SCAN] [facility] Future Scheduled 1956 Screening for malignant [facility] Test 00:00:00 neoplasm of colon Medical Ce nter (procedure) [code = 348764750] Future Scheduled 1956 Screening for malignant [facility] Test 00:00:00 neoplasm of colon Medical Ce nter (procedure) [code = 116773278] Future Scheduled 1955 Sigmoidoscopy [code = [facility] Test 00:[facility]:00 Sigmoidoscopy] Medical Cente r Encounters Start End Encounter Admission Attending Care Care Encounter Source Date/Time Date/Time Type Type Clinicians Facility Department ID 2022-02-25 Outpatient [facility] [id number] Common 10:04:02 Spirit - [facility] 2023-03-22 2023-03-[address] [facility] [id number] [facility] 00[facility]00 [facility] 2023-03-21 2023-03-[address] [facility] [id number] 00:00[facility]00 00:00:00 Only [facility] 2023-03-21 2023-03-21 [id number] 00:[facility] 00[facility]00 [facility] 2023-03-21 2023-03-[address] [facility] [id number] 00:[facility]00 00:00:00 [facility] 2023-03-18 2023-03-18 [facility] [id number] 00:00[facility]00 00:00:00 suzette [facility] 2023-03-11 2023-03-11 [facility] [id number] 00:00:00 00:00:00 suzette Martinez [facility] 2023-03-11 2023-03-11 [facility] [id number] 00:00[facility]00 00:00:00 suzette Martinez [facility] 2023-03-10 2023-03-[address] [facility] [id number] 10:00:00 11:00:00 Visit [facility] 2023-03-10 2023-03-[address] [facility] [id number] 10:00:00 11:00:00 Visit [facility] 2023-03-10 2023-03-10 Outpatient VERONIQUE DELGADO [facility] [id number] [facility] 00:00:00 00:00:00 [place] 2023-03-08 2023-03-08 Outpatient SFA SFA S[facility]am 16:19:28 16:19:28 [id number] [place] 2022-12-22 2022-12-22 Outpatient SFA [facility] 09:20:05 09:20:05 [id number] [facility] [place] 2022-12-01 2022-12-01 Outpatient SFA [facility]FA [facility] 09:41:49 09:41:49 [id number] [facility] [place] 2022-11-18 2022-11-18 Outpatient SFA SFA [facility] 16:40:54 16:40:54 [id number] [facility] [place] 2022-11-11 2022-11-11 Outpatient SFA SFA [facility] 08:28:15 08:28:15 [place] 2022-11-02 2022-11-02 Outpatient SFA SFA [facility] 09:34:36 09:34:36 [place] 2022-10-05 2022-10-05 Outpatient SFA SFA [facility] 10:47:07 10:47:07 [place] 2022-09-20 2022-09-20 Outpatient SFA SFA [facility] 13:28:34 13:28:34 [facility] 2022-09-09 2022-09-09 Outpatient SFA SFA [facility]am 13:45:17 13:45:17 [facility] 2022-09-08 2022-09-08 Outpatient SFA SFA [facility] 17:20:04 17:20:04 [facility] 2022-08-25 2022-08-25 Outpatient SFA SFA [facility] 10:39:31 10:39:31 [facility] 2022-08-19 2022-08-19 Outpatient SFA SFA [facility]am 09:39:44 09:39:44 [facility] 2022-08-17 2022-08-17 Outpatient SFA SFA [id number] [facility]am 15:23:19 15:23:19 F [place] Results Test Description Test Time Test Comments Results Result Comments Source Liver Fibrosis, FibroTest-ActiTest Panel 2023-03-17 12:21:57 Test Item Value Reference Range Interpretation Comme nts Fibrosis Score (test code 0.96 = 8790401) Fibrosis Stage (test code F4 = 9703531) FIBROSIS INTERPRETATION SEE BELOW sev ere fibrosis [...] Necroinflammat Activity A1-A2 Grade (test code = 33527-9) NECROINFLAMMAT INTERP SEE BELOW minim al activity [...] H Suspi cion of Gilbert code = 8950027) syndrome or hemolysis, check non conjugated bilirubin. Check if haemol ysis as bilirubin is hi gh and haptoglobin low . GGT (test code = ) 34 U/L 3-65 Irby spicion of Gilbert syndrome or hem olysis, check non conjugated bilirubin. ALT (SGPT) (test code = 35 U/L 6-29 H ) ALPHA 2 MACROGLOBULIN 327 mg/dL 106-279 H (QUEST) (test code = 0844464) Haptoglobin (test code = <8 43-212 L Rachel ck if haemolysis as ) bilirubin is hi gh and haptoglobin low . Apolipoprotein A-1 (test 97 mg/dL 101-198 L code = 5537233) NECROINFLAM ACT SCORE 0.38 (QUEST) (test code = 4172847) REFERENCE ID (PanelClaw) [id number] (test code = 3502947) FOOTNOTE (QUEST) (test SEE BELOW The reliability of results code = 4955211) is dependent on compliance with the preana lytical and analytical cond itions recommended by [employer]. The tests have to be defe rred for: acute hemolysis , acute hepatitis, acut e inflammation, e xtra hepatic cholestasis. Th e advice of a specialist sruthiu ld be sought for interpretat ion in [...] performa nce characteristics have been determined by [facility]. It has not been cleared or appr ovedby the U.S. Food and D rug Administration. Performance characteristics referto the analytical perf ormance of the test. Quest , [facility], th e associated logo, Nisa Diaz nstitute and allassociated Q uest Diagnostics xiomy weber are the registered trad emarks of Jaco Solarsi s. All third constitution party huynh - ( R) and (TM) - are the propert y of theirrespective owners. (C) [id number] [employer]. A ll rightsreserved. WILVER (test code = WILVER) Performing Lab EZ [facility] [address] [place] [address] Joe Rodriguez MD, PhD, SCOTT Lab Interpretation (test Abnormal code = 34918-5) [facility] Fibrosis, FibroTest-ActiTest [id number] 12:21:57 Test Item Value Reference Interpretation Comments Range Fibrosis Score 0.96 (test code = 9361761) Fibrosis Stage F4 (test code = 2028301) FIBROSIS SEE BELOW severe fibrosi s Fibro INTERPRETATION Test Score (f ) Metavir (QUEST) (test code Score f>= 0 and f<=0.21 = 20151222) : F0 (no fibrosis)f>0.21 and f<=0.27 : F0-F1 (no fibrosis)f>0.27 and f<=0.31 : F1 (m inimal fibrosis)f>0.31 and f<=0.48 : F1-F2 (minimal fibrosis)f>0.48 and f<=0.58 : F2 (m oderate fibrosis)f>0.58 and f<=0.72 : F3 (advanced fibrosis)f>0.72 and f<=0.74 : F3-F4 (advanced fibrosis)f>0.74 and f<=1.00 : F4 (severe fibrosi s) Necroinflammat A1-A2 Activity Grade (test code = 61610-4) NECROINFLAMMAT SEE BELOW minimal acti vity INTERP (QUEST) ActiTest Scor e (a) (test code = Metavir Score a >=0 and 20151223) a<=0.17 : A0 (n o activity)a>0.17 and a<=0.29 : A0-A1 (no activity)a>0.29 and a<=0.36 : A1 (m inimal activity)a>0.36 and a<=0.52 : A1 -A2 (minimal activity)a>0.52 and a<=0.60 : A2 (significant activity)a>0.60 and a<=0.62 : A2-A3 (significant activity)a>0.62 and a<=1.00 : A3 (s evere activity) Bilirubin, Total 2.1 mg/dL 0.2-1.2 H Suspicion o f Gilbert (test code = syndrome or hem olysis, ) check non conju gated bilirubin. Chec k if haemolysis as bilirubin is hi gh and haptoglobin low . GGT (test code = 34 U/L 3-65 Suspicion o f Gilbert ) syndrome or hem olysis, check non conju gated bilirubin. ALT (SGPT) (test 35 U/L 6-29 H code = 8647487) ALPHA 2 327 mg/dL 106-279 H MACROGLOBULIN (QUEST) (test code = 1226681) Haptoglobin (test <8 43-212 L Check if h aemolysis as code = 3914541) bilirubin is high and haptoglobin low . Apolipoprotein A-1 97 mg/dL 101-198 L (test code = 9631894) NECROINFLAM ACT 0.38 SCORE (QUEST) (test code = 3469663) REFERENCE ID [id number] (QUEST) (test code = 3240847) FOOTNOTE (QUEST) SEE BELOW The reliab ility of (test code = results is depe ndent 8433796) on compliance w ith the preanalytical a nd analytical cond itions recommended by [employer]. The tests have to b e deferred for: a cute hemolysis, acut e hepatitis, acut e inflammation, e xtra hepatic cholest asis. The advice of a specialist sruthiu ld be sought for interpretation in chronic hemolys is and Gilbert's syndr ome. The test interpretation is not validated in li [facility]upinder transplant melvina ents. Isolated extrem e values of one o f the components shou ld lead to caution in interpreting th e results. In mark e of discordance bet ween a biopsy result a nd a test, it is recommended to seek the advice of a specialist. The causes of these discor dances could be due to a flaw of the test or to a flaw in the bio psy: i.e. a liver bi opsy has a 33% varia bility rate for one fi brosis stage. FibroTes t is interpretable f or chronic hepatit is B and C, alcoholi c and non alcoholic steatosis. Acti Test is interpretable f or chronic hepatit is B and C. The perf ormance characteristics have been determined by [facility]. It has not been cleared or approvedby the U.S. Food and Drug Administration. Performance characteristics referto the davion lytical performance of the test. Quest, [facility], th e associated logo , Paula Institu te and allassociated Q uest Diagnostics mar ks are the registered trademarks of Jaco Solarsi s. All third constitution party mar ks - (R) and (TM) - are the property of theirrespective owners. (C) [employer]. A ll rightsreserved. WILVER (test code = Performing Lab WILVER) EZ [employer] [facility] [address] [address] Joe Rodriguez MD, PhD, SCOTT Lab Interpretation Abnormal (test code = 91274-5) [facility], [id number] 05:44:38 Test Item Value Reference Range Interpretation Comments HCV NUMERIC RESULT (BEAKER) 7006194 IU/mL <15 H (test code = 2700) ALPHA FETOPROTEIN (AFP), TUMOR [id number] 14:56:57 Test Item Value Reference Range Interpretation Comments ALPHA-FETOPROTEIN (BEAKER) (test 9109.5 ng/mL <10.0 H code = 1094) Airplane Dispatcher ID - ADMINOperator ID - ADMINHEPATITIS A ANTIBODY, [id number] 14:52:32 Test Item Value Reference Range Interpretation Comments HEPATITIS A IGG ANTIBODY (BEAKER) Nonreactive Nonreactive (test code = 2797) Airplane Dispatcher ID - ADMINHEPATITIS B CORE ANTIBODY, [id number] 14:52:32 Test Item Value Reference Range Interpretation Comments HEPATITIS B CORE TOTAL ANTIBODY Nonreactive Nonreactive (BEAKER) (test code = 497) Airplane Dispatcher ID - ADMINHIV-1 ANTIGEN WITH HIV-1/2 [id number] 14:52:32 Test Item Value Reference Range Interpretation Comments HIV-1 ANTIGEN WITH HIV 1\T\2 Nonreactive Nonreactive ANTIBODY (2) (BEAKER) (test code = 2586) Airplane Dispatcher ID - ADMINCARCINOEMBRYONIC ANTIGEN (CEA)2023-03-10 14:52:26 Test Item Value Reference Range Interpretation Comments CARCINOEMBRYONIC ANTIGEN (BEAKER) 4.1 ng/mL 0.0-5.0 (test code = 685) Airplane Dispatcher ID - ADMINBASIC METABOLIC [id number] 14:07:03 Test Item Value Reference Range Interpretation [...] De scription 1092) sq m Result G1 Norm al or high >=90 G2 Mildly decreased 60-89 G3a Mildl y to moderately 45-5 9 G3b Moderately to s everely 30-44 G4 Severl y decreased 15-29 G5 Kidne y failure <15Reported eGF R is based on the CKD-EPI 2021 equation that d oes not use a race coefficientEsti mated GFR is not as accur ate as Creatinine Sveta molly in predicting glom erular filtration rate . Estimated GFR is not appl icable for dialysis patien ts Airplane Dispatcher ID - ADMINSpecimen slightly ictericHEPATIC FUNCTION [id number] 14:07:03 Test Item Value Reference Range Interpretation [...] (test code = 39 U/L 6-55 347) Airplane Dispatcher ID - ADMINSpecimen slightly ictericPROTHROMBIN [id number] 13:25:20 Test Item Value Reference Range Interpretation [...] mechanical heart valves.CBC W/PLT COUNT & AUTO [id number] 13:17:55 Test Item Value Reference Range Interpretation [...] (BEAKER) (test code = 2801) HEPATITIS C [id number] 13:15:29 Test Item Value Reference Range Interpretation Comments HEPATITIS C GENOTYPE 3 Assay methodology is (test code = 11476) real-micheal e PCR amplification of the 5'UTR an dNS5b regions of the HCV lisa me utilizing the 99times.cn Real Time HCVGenotype II assay and Holm HCV Lisa type Plus assay. Possible genotypes include 1a, 1b, 2, 3, 4, 5, and 6. UNLESS O THERWISE INDICATED, ALL TESTING PERFORMED [facility] PATH[facility], [facility]. [address] [place] [address], [place] [address] LABORATOR Y DIRECTOR: Karely LEGER NUMBER [id number] CAP ACCREDITATION N O. [id number] AFP, TUMOR [id number] 09:35:09 Test Item Value Reference Range Interpretation Comments AFP, TUMOR MARKER 19967.00 NG/ML See_Comment H [Automa murtaza message] (test code = The system [facility] [address]) generated this result transmitted ref erence range: <=8.30. The reference range was not used to int erpret this result as normal/abnormal . DAVION (ANTI-NUCLEAR AB) WITH REFLEX [id number] 00:57:23 Test Item Value Reference Range Interpretation Comments ANTI-NUCLEAR POSITIVE NEGATIVE A ANTIBODIES (test code = 3506) DAVION PATTERN SEE BELOW (REPORTED TITER) (test code = 28795) HOMOGENEOUS (test 1:320 TITER NEGATIVE H code = 92479) SPECKLED (test NEGATIVE TITER NEGATIVE code = 811221) DENSE FINE NEGATIVE TITER NEGATIVE SPECKLED (test code = 37147) CENTROMERE (test NEGATIVE TITER NEGATIVE code = 144287) COARSE SPECKLED NEGATIVE TITER NEGATIVE (test code = 395047) DISCRETE NUCLEAR NEGATIVE TITER NEGATIVE DOTS (test code = 789272) NUCLEOLAR (test NEGATIVE TITER NEGATIVE code = 651882) NUCLEAR MEMBRANE NEGATIVE TITER NEGATIVE (test code = 034471) CYTO. RETICULAR NEGATIVE NEGATIVE (REUBEN) (test code = 291908) COMMENTS (test NONE code = 056154) METHOD (test code (NOTE) NOTE: EFF ECTIVE = 43305) 06/21/2022, MET HOD IS TRANSITIONED TO THE Mobile Media ContentDIAGNOSTIC S NOVA VIEW IFA PLATFO . THE METHOD INCLUDES A SCREENTHRESHOLD OF 1:80, DIGITIZED AND COMPUTER ALGORITHM-NOLBERTO TEDINTE RPRETATION OF T ITERS AND DIGITAL PAT TERNS, AND HEp-2 CELLL INE SUBSTRATE. FINESSE TIONAL UNUSUAL PATTERN S WILL BE GIVEN ASCOMM ENTS. FOR MORE INFORM ATION, SEE [email or web address] sting [id number] 06:51:48 Test Item Value Reference Range Interpretation Comments FERRITIN (test code = 2075) 333 NG/ML 13-200 H VITAMIN B 12 AND FOLIC [id number] 06:51:48 Test Item Value Reference Range Interpretation [...] UNLESS OT HERWISE INDICATED, ALL TESTING PERFORMED [facility], [facility]. [address] [place] [address] 4 LABORATORY DIRE CTOR: JORGE CONDE M.D. CLIA NUMBER [id number] [facility] [id number] HEPATITIS PANEL, [id number] 05:14:35 Test Item Value Reference Range Interpretation Comments HEPATITIS A IgM (test NON-REACTIVE NON-REACTIVE code = 70803) HEPATITIS B CORE IgM NON-REACTIVE NON-REACTIVE (test code = 4644) HEPATITIS B SURF AG NON-REACTIVE NON-REACTIVE (test code = 2739) HEPATITIS C ANTIBODY REACTIVE NON-REACTIVE A (test code = 4675) INTERPRETATION (NOTE) Hepatitis A HEPATITIS A: (test serology shows no code = 2552) evidence of acu te hepatitis A. INTERPRETATION (NOTE) Hepatitis B HEPATITIS B: (test serology shows no code = 59185) evidence of [place] hepatitis B and no indication of exposure to hepatitis B vir us in the previous si xto eight months. INTERPRETATION (NOTE) Hepatitis C HEPATITIS C: (test serology is code = 42809) consistent wit h exposure to hepatitis Cviru s. The CDC recomme nds performing a supplemental confirmatory te ston initial positiv e hepatitis C ant ibody tests. HCV PCR quantitativecan be used to confirm these results o n a new sample (See MMWR, 2003;52 R R-3). [id number] 04:48:58 Test Item Value Reference Range Interpretation Comments GGT (test code = 2216) 63 U/L <40 H [id number] 04:48:58 Test Item Value Reference Range Interpretation Comments TRANSFERRIN (test code = 4936) 210 MG/DL 200-360 IRON BINDING CAPACITY AND IRON AND % [id number] 04:48:29 Test Item Value Reference Range Interpretation Comments IRON, SERUM (test code = 2222) 117 UG/DL 37-145 UNSATURATED IBC (test code = 69178) 141 UG/DL 112-347 CALC TOTAL IBC (test code = 2077) 258 UG/DL 250-450 CALC % IRON SAT (test code = 2079) 45 % 20-50 HEMOGLOBIN [id number] 11:45:56 Test Item Value Reference Range Interpretation Comments HEMOGLOBIN A1c (test code = 15224) 5.0 % 4.2-5.6 LIPID [id number] 07:24:18 Test Item Value Reference Range Interpretation [...] MOREINFORMATION , SEE CLIENT ANNOUNCE MENT AT [email or web address] RISK RATIO LDL/HDL 1.70 RATIO <3.22 (test code = 2238) COMPREHENSIVE METABOLIC [id number] 07:24:18 Test Item Value Reference Range Interpretation Comments GLUCOSE (test code = 84 MG/DL 70-99 2216) BUN (test code = 11 MG/DL 8-23 2207) CREATININE (test 0.55 MG/DL 0.60-1.30 L code = 2214) eGFR (2020 CKD-EPI) 101 >60 (test code = 67872) ML/MIN/1.73 CALC BUN/CREAT (test 20 RATIO 6-28 code = 223) SODIUM (test code = 142 MEQ/L 412-731 0576) POTASSIUM (test code 3.8 MEQ/L 3.5-5.4 = 2227) CHLORIDE (test code 108 MEQ/L 95-107 H = 2214) CARBON DIOXIDE (test 23 MEQ/L 19-31 code = 220) CALCIUM (test code = 8.2 MG/DL 8.5-10.5 L 2208) PROTEIN, TOTAL (test 6.2 G/DL 6.1-8.3 code = 222) ALBUMIN (test code = 3.5 G/DL 3.5-5.2 2200) CALC GLOBULIN (test 2.7 G/DL 1.9-3.7 code = 2240) CALC A/G RATIO (test 1.3 RATIO 1.0-2.6 code = 2234) BILIRUBIN, TOTAL 1.7 MG/DL See_Comment H [Automated message] (test code = 2207) The syste m which generated this result transmitted ref erence range: <=1.2. T he reference range was not used to int erpret this result as normal/abnormal . ALKALINE PHOSPHATASE 166 U/L 40-142 H (test code = 2203) AST (test code = 124 U/L 9-40 H 8) ALT (test code = 79 U/L 5-40 H UNLESS OTH ERWISE 2219) INDICATED, ALL TESTING PERFORM [facility] [place] [address] [place] [id number] LABOR ATORY DIRECTOR: Karely MORENOIA NUMBER [id number] CAP ACCREDITATION N O. [id number]
[2023-03-22] MEDS ORDERED: FUROSEMIDE 20 MG TABLET ONE (16:51)
[2023-03-22] MEDS ORDERED: CIPROFLOXACIN HCL 500 MG TAB ONE (16:53)
--- NOTE | 2023-03-22 16:56 | ER ---
Nurse's Notes [facility] Name: Edith Buck Age: 67 yrs Sex: Female : 1955 Arrival Date: 03/22/2023 Time: 16:12 Bed 13 Private MD: Diagnosis: Alcoholic cirrhosis of liver with ascites;UTI/ Urinary tract infection, site not specified Presentation: 03/22 16:20 Chief complaint: Patient states: had 1st paracentesis 03/18/23, pt states "my stomach is aa5 swollen again and I can't breath" Reports SOB. 16:20 Coronavirus screen: At this time, the client does not indicate any symptoms associated aa5 with coronavirus-19. Ebola Screen: Patient denies travel to an Ebola-affected area in the 21 days before illness onset. Initial Sepsis Screen: Does the patient meet any 2 criteria? RR > 20 per min. HR > 90 bpm. Yes Does the patient have a suspected source of infection? No. Patient's initial sepsis screen is negative. Risk Assessment: Do you want to hurt yourself or someone else? Patient reports no desire to harm self or others. Onset of symptoms was March 22, 2023. 16:20 Method Of Arrival: Ambulatory aa5 16:20 Acuity: FLORA 3 aa5 Historical: - Allergies: 16:21 Amoxicillin; aa5 16:21 Codeine; aa5 16:21 PENICILLINS; aa5 - PMHx: 16:21 Cirrhosis of liver; aa5 16:21 alcohol abuse; aa5 - Immunization history:: Adult Immunizations unknown. - Social history:: Smoking status: Patient reports the use of cigarette tobacco products, denies chronic smoking, but will smoke occasionally. - Family history:: not pertinent. - Hospitalizations: : No recent hospitalization is reported. Screenin:56 [facility] ED Fall Risk Assessment (Adult) History of falling in the last 3 months, mb9 including since admission No falls in past 3 months (0 pts) Confusion or Disorientation No (0 pts) Intoxicated or Sedated No (0 pts) Impaired Gait No (0 pts) Mobility Assist Device Used No (0 pt) Altered Elimination No (0 pt) Score/Fall Risk Level 0 - 2 = Low Risk Oriented to surroundings, Maintained a safe environment, Educated pt \\T\\ family on fall prevention, incl call for assistance when getting out of bed. Abuse screen: Denies threats or abuse. Nutritional screening: No deficits noted. Tuberculosis screening: No symptoms or risk factors identified. Assessment: 16:50 Reassessment:. General: Appears in no apparent distress. comfortable, Behavior is calm, nj1 cooperative, appropriate for age. 16:50 Pain: Complains of pain in abdomen. Neuro: Level of Consciousness is awake, alert, nj1 obeys commands, Oriented to person, place, time, situation. Cardiovascular: Patient's skin is warm and dry. Respiratory: Airway is patent Respiratory effort is even, unlabored. GI: Abdomen is round Reports upper abdominal pain. Vital Signs: 16:20 BP 135 / 55; Pulse 97; Resp 22 S; Temp 98.3(O); Pulse Ox 97% on R/A; Weight 69.85 kg aa5 (R); Height 5 ft. 4 in. (R); 16:56 BP 137 / 56; Pulse 78; Resp 18; Pulse Ox 98% on R/A; mb9 16:20 Body Mass Index 26.43 (69.85 kg, 162.56 cm) aa5 ED Course: 16:13 Patient arrived in ED. rg4 16:14 Raji Ortiz MD is Attending Physician. rn 16:14 Che Ellington, SALAS is Primary Nurse. nj1 16:20 Arm band placed on. aa5 16:20 Placed in gown. Bed in low position. Call light in reach. Side rails up X 1. Client mb9 placed on continuous cardiac and pulse oximetry monitoring. NIBP monitoring applied. 16:23 Triage completed. aa5 16:56 No provider procedures requiring assistance completed. Patient did not have IV access mb9 during this emergency room visit. Administered Medications: 16:48 Drug: Furosemide PO 40 mg Route: PO; mb9 16:57 Follow up: Response: No adverse reaction mb9 16:48 Drug: Ciprofloxacin PO 500 mg Route: PO; mb9 16:57 Follow up: Response: No adverse reaction mb9 Medication: 16:57 VIS not applicable for this client. mb9 Outcome: 16:56 Discharge ordered by . rn 17:00 Discharged to home ambulatory, with family. nj 17:00 Condition: stable nj 17:00 Discharge instructions given to patient, family, Instructed on discharge instructions, follow up and referral plans. medication usage, Demonstrated understanding of instructions, follow-up care, medications, Prescriptions given X 1. 17:03 Patient left the ED. nj1 Signatures: Raji Ortiz MD MD rn Calderon, Audri, RN RN [email or web address] Lyudmila [email or web address] Monica Jain RN RN mb9 Che Ellington RN RN nj1 Corrections: (The following items were deleted from the chart) 17:03 16:57 Discharged to home ambulatory, nj1 nj1
--- NOTE | 2023-03-22 16:56 | EDPHYS ---
Physician Documentation [facility] Name: Edith Buck Age: 67 yrs Sex: Female : 1955 Arrival Date: 03/22/2023 Time: 16:12 Bed 13 Private MD: ED Physician Raji Ortiz HPI: 03/22 16:44 This 67 yrs old Female presents to ER via Ambulatory with complaints of Abdominal Pain. rn 16:44 This 67 yrs old Female presents to ER via Ambulatory with complaints of Abdominal rn swelling. 16:44 The patient presents with abdominal distention that is diffuse. Onset: The rn symptoms/episode began/occurred at an unknown time. Associated signs and symptoms: Pertinent negatives: nausea and vomiting, blood in stools, chest pain, diarrhea, dysuria, fever, hematuria. Modifying factors: The symptoms are alleviated by nothing, the symptoms are aggravated by nothing. Severity of pain: At its worst the pain was mild in the emergency department the pain is unchanged. The patient has experienced similar episodes in the past. Pt reports abd swelling, just had first paracentesis 5 days ago here, states felt much better after procedure, sent today by her pcp because she got test results and was questioning whether she had infection in the paracentesis fluid. No fever. No chest pain. No vomiting/diarrhea. No blood in stool. . Historical: - Allergies: 16:21 Amoxicillin; aa5 16:21 Codeine; aa5 16:21 PENICILLINS; aa5 - PMHx: 16:21 Cirrhosis of liver; aa5 16:21 alcohol abuse; aa5 - Immunization history:: Adult Immunizations unknown. - Social history:: Smoking status: Patient reports the use of cigarette tobacco products, denies chronic smoking, but will smoke occasionally. - Family history:: not pertinent. - Hospitalizations: : No recent hospitalization is reported. ROS: 16:44 Constitutional: Negative for fever, chills, and weight loss, Cardiovascular: Negative rn for chest pain, palpitations, and edema, Respiratory: Negative for shortness of breath, cough, wheezing, and pleuritic chest pain, Abdomen/GI: + abd distension Back: Negative for injury and pain, : Negative for injury, bleeding, discharge, and swelling, MS/Extremity: Negative for injury and deformity, Skin: Negative for injury, rash, and discoloration, Neuro: Negative for headache, weakness, numbness, tingling, and seizure. Exam: 16:44 Constitutional: Thin female, no acute distress Head/Face: Normocephalic, atraumatic. 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 No pulse deficits. Respiratory: Mild tachypnea when laying flat. Abdomen/GI: soft, + mild distension, no tenderness, + mild fluid wave, no ecchymosis or flank discoloration. Skin: Warm, dry with normal turgor. Normal color with no rashes, no lesions, and no evidence of cellulitis MS/ Extremity: Pulses equal, no cyanosis. Neuro: Awake and alert, GCS 15 Vital Signs: 16:20 BP 135 / 55; Pulse 97; Resp 22 S; Temp 98.3(O); Pulse Ox 97% on R/A; Weight 69.85 kg aa5 (R); Height 5 ft. 4 in. (R); 16:56 BP 137 / 56; Pulse 78; Resp 18; Pulse Ox 98% on R/A; mb9 16:20 Body Mass Index 26.43 (69.85 kg, 162.56 cm) aa5 MDM: 16:14 Patient medically screened. 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 . 16:52 Differential diagnosis: non-specific abd pain, ascites, volume overload, cirrhosis, rn UTI. Data reviewed: vital signs, nurses notes, old medical records, and as a result, I will discharge patient. Care significantly affected by the following chronic conditions: Liver Disease. Counseling: I had a detailed discussion with the patient and/or guardian regarding: the historical points, exam findings, and any diagnostic results supporting the discharge/admit diagnosis, the need for outpatient follow up, to return to the emergency department if symptoms worsen or persist or if there are any questions or concerns that arise at home. Special discussion: I discussed with the patient/guardian in detail that at this point there is no indication for admission to the hospital. It is understood, however, that if the symptoms persist or worsen the patient needs to return immediately for re-evaluation. ED course: Pt with ascites, known cirrhosis, possible cancer, and outpt workup already planned. No indication for repeat paracentesis at this time, abd soft, and explained course of liver disease to patient and family. Checked results of paracentesis from last week, culture neg for organisms as well as WBC. Urine looked infected, patient reports increase in urination frequency. Already on diuretics and potassium replacement. Given extra lasix and abx here, will dc home with abx and return precautions. . Administered Medications: 16:48 Drug: Furosemide PO 40 mg Route: PO; mb9 16:57 Follow up: Response: No adverse reaction mb9 16:48 Drug: Ciprofloxacin PO 500 mg Route: PO; mb9 16:57 Follow up: Response: No adverse reaction mb9 Disposition Summary: 03/22/23 16:56 Discharge Ordered Location: Home rn Problem: an ongoing problem rn Symptoms: are unchanged rn Condition: Stable rn Diagnosis - Alcoholic cirrhosis of liver with ascites rn - UTI/ Urinary tract infection, site not specified rn Followup: rn - With: Private Physician - When: As needed - Reason: Recheck today's complaints, Re-evaluation by your physician Discharge Instructions: - Discharge Summary Sheet rn - Ascites rn - Cirrhosis rn - Paracentesis rn - Urinary Tract Infection, Adult rn Forms: - Medication Reconciliation Form rn - Thank You Letter rn - Antibiotic rn women services - Prescription Opioid Use rn Prescriptions: - Cipro 500 mg Oral Tablet - take 1 tablet by ORAL route every 12 hours for 7 days; 14 tablet; Refills: 0, rn Product Selection Permitted Signatures: Raji Ortiz MD MD rn Calderon, Audri RN RN aa5 Monica Jain, RN RN mb9
[2023-03-22 17:08] VITALS: TEMP 98.3
[2023-03-22 17:09] VITALS: BP 137/56; O2SAT 98
== END 2023-03-22 17:03 | disposition home or self-care (01) ==
LOC: ER 16:12
DX: K70.31 Alcoholic cirrhosis of liver with ascites (principal); N39.0 Urinary tract infection, site not specified; F17.210 Nicotine dependence, cigarettes, uncomplicated; Z88.0 Allergy status to penicillin; Z88.1 Allergy status to other antibiotic agents; Z88.5 Allergy status to narcotic agent
CPT/HCPCS: 99283

== ENCOUNTER 2023-04-29 23:45 | Emergency (ER) | payer OTHER ==
--- OUTSIDE RECORDS SUMMARY | 2023-04-29 23:49 | XMS REPORT | Continuity of Care Document ---
:1955 Author Organization [facility] t Address [address] [facility] [address] [place] [address] Care Team Providers Name Role Phone Records, [facility] - Other - Primary Care Physician Thais vailable RACH GONZALEZ Attending Clinician Unavailable CASSIE ABRAHAM Attending Clinician Unavailable MACARENA JACKSON Attending Clinician Unavailable Macarena Perez Attending Clinician [phone] Carlos MARINA, Marion Attending Clinician Unavailable Balaji Vazquez Attending Clinician Unavailable Donavan MARINA, Michelle Burris Attending Clinician Unavailable Rach Gonzalez MD Attending Clinician Payers Payer Name Policy Type Policy Number Effective Date Expiration Date S ource Problems This patient has no known problems. Allergies, Adverse Reactions, Alerts Allergy Allergy Status Severity Reaction(s) Onset Inactive Treating Comm ents Source Name Type Date Date Clinician CODEINE Allergy Active High Swelling [facility] [place] Allergy Active High Hives [facility] Codeine Propensi Active 2022- [facility] adverse 00:00: Medical reaction 00 [place] Propensi Active [facility] adverse 00:00: Medical reaction 00 [place] Family History Family Member Diagnosis Comments Start Date Stop Date Source Natural brother Liver disease [facility] Natural father Heart failure [facility] Natural mother Heart disease [facility] Natural sister Breast cancer [facility] Social History Social Habit Start Date Stop Date Quantity Comments Source Tobacco use and 2023-03-10 2023-03-10 [address] [facility] exposure [facility]00 non-user [facility] Alcohol intake 2023-03-10 2023-03-10 [facility] (finding) Sex [birth year] [facility] 00:00:00 00:[facility]:00 [facility] Center Smoking Status Start Date Stop Date Source Never smoked tobacco [facility] Medications Ordered Filled Start Stop Current Ordering Indication Dosage Frequency Signature Comments Components Source Medication Medication Date Date Medication? Clinician (SIG) Name Name Ginger 2022- Yes 20meq QD Take [address] [facility] [facility] M20 20 mEq 4-24 tablet (20 Roney es tablet 00:00: mEq total) Medic al 00 by mouth Center in the morning. hydroCHLORO 2022-0 Yes 12.5mg QD Take [address] thiazide 4-24 tablet [facility] (HYDRODIURI 00:00: (12.5 mg Me dical L) 12.5 MG 00 total) by Cent er tablet mouth in the morning. Ginger Yes 20meq QD Take 1 [facility] [...] Source Systolic blood 2023-03-10 10:20:00 149 mm[Hg] [facility] Diastolic blood 2023-03-10 10:20:00 76 mm[Hg] [facility] Heart rate 2023-03-10 10:20:00 86 /min [facility] Body temperature 2023-03-10 10:20:00 36.78 Maryuri [facility] Respiratory rate 2023-03-10 10:20:00 18 /min [facility] Body height 2023-03-10 10:20:00 162.6 cm [facility] Body weight 2023-03-10 10:20:00 71.033 kg [facility] BMI 2023-03-10 10:20:00 26.88 kg/m2 [facility] Oxygen saturation in 2023-03-10 10:20:00 95 /min [facility] Arterial blood by Medical Ce nter Pulse oximetry Procedures Procedure Date / Time Performing Clinician Source Performed LIVER FIBROSIS, 2023-03-10 12:15:00 Rach Gonzalez [facility] FIBROTEST-ACTITEST PANEL [facility] BASIC METABOLIC PANEL 2023-03-10 12:07:00 Rach Gonzalez [facility] HEPATIC FUNCTION PANEL 2023-03-10 12:07:00 Rach Gonzalez [facility] CBC W/PLT COUNT & AUTO 2023-03-10 12:07:00 Rach Gonzalez [facility] PROTHROMBIN TIME/INR 2023-03-10 12:07:00 Rach Gonzalez [facility] ALPHA FETOPROTEIN (AFP), 2023-03-10 12:07:00 Rach Gonzalez [facility] TUMOR MARKER [facility] HEPATITIS C GENOTYPE 2023-03-10 12:07:00 Rach Gonzalez [facility] HEPATITIS C PCR, 2023-03-10 12:07:00 Rach Gonzalez [facility] HC LAB HIV-1 AG W/HIV-1&2 2023-03-10 12:07:[address] [facility] AB [facility] Center HEPATITIS B CORE ANTIBODY, 2023-03-10 12:07:[address] [facility] T[facility] HEPATITIS A ANTIBODY, IGG 2023-03-10 12:07:[address] [facility] Center CARBOHYDRATE ANTIGEN 19-9 2023-03-10 12:07:[address] [facility] (CA 19-9) [facility] CARCINOEMBRYONIC ANTIGEN 2023-03-10 12:07:[address] [facility] (CEA) [facility] CBC W/PLT COUNT & AUTO 2023-03-10 12:07:[address] [facility] DIFFERENTIAL [facility] Center Plan of Care Planned Activity Planned [...] [facility] Test 00:00:00 2) [code = [facility] VACCINES (1 of 2)] Future Scheduled 2006 SHINGLES VACCINES ([address] [facility] 00:00[facility]00 [facility] Future Scheduled [...] breast Medical C enter (procedure) [code = 500040975] Future Scheduled 1956 CT Colonography (combo) [facility] Test 00:00:00 [code = CT Colonography [facility] (combo)] Future Scheduled 1955 Screening for malignant [facility] Test 00:00:00 neoplasm of colon Medical Ce nter (procedure) [code = 888210525] Future Scheduled 1955 Screening for malignant [facility] Test 00:00:00 neoplasm of colon Medical Ce nter (procedure) [code = 596110666] Future Scheduled 1955 DXA SCAN [code = DXA [facility] Test 00:00:00 SCAN] [facility] Future Scheduled 1956 Screening for malignant [facility] Test 00:00:00 neoplasm of colon Medical Ce nter (procedure) [code = 213119225] Future Scheduled 1956 Screening for malignant [facility] Test 00:00:00 neoplasm of colon Medical Ce nter (procedure) [code = 609934273] Future Scheduled 1955 Sigmoidoscopy [code = [facility] Test 00:00:00 Sigmoidoscopy] [facility] Future Scheduled 1956 Screening for malignant [facility] Test 00:00:00 neoplasm of breast Medical C enter (procedure) [code = 135597121] Future Scheduled 1956 CT Colonography (combo) [facility] Test 00:00:00 [code = CT Colonography [facility] (combo)] Future Scheduled 1956 Screening for malignant [facility] Test 00:00:00 neoplasm of colon Medical Ce nter (procedure) [code = 843400472] Future Scheduled 1956 Screening for malignant [facility] Test 00:00:00 neoplasm of colon Medical Ce nter (procedure) [code = 428976397] Future Scheduled 1955 DXA SCAN [code = DXA [facility] Test 00:00:00 SCAN] [facility] Future Scheduled 1956 Screening for malignant [facility] Test 00:00:00 neoplasm of colon Medical Ce nter (procedure) [code = 776524408] Future Scheduled 1956 Screening for malignant [facility] Test 00:00:00 neoplasm of colon Medical Ce nter (procedure) [code = 841530237] Future Scheduled 1955 Sigmoidoscopy [code = [facility] Test 00:00:00 Sigmoidoscopy] Medical Cent[facility] r Encounters Start End Encounter Admission Attending Care Care Encounter Source Date/Time Date/Time Type Type Clinicians Facility Department ID 2022-02-25 Outpatient [facility] [id number] Common 10:04:02 Spirit - [facility] 2023-03-24 2023-03-24 Outpatient SFA SFA [id number]- Soham 15:26:33 15:26:33 [id number] F Alonzo 2023-03-22 2023-03-22 [id number] [facility] 00[facility]00 [facility] 2023-03-21 2023-03-[address] [facility] [id number] 00:00:00 00:00:00 Only [facility] 2023-03-21 2023-03-21 [facility] [id number] 00:[facility] 00[facility]00 [facility] 2023-03-21 2023-03-21 [facility] [id number] 00:[facility]00 00:00:00 [facility] 2023-03-18 2023-03-[address] [facility] [id number] 00:00:00 00:00:00 ion Balaji [facility] 2023-03-11 2023-03-[address] [facility] [id number] 00:[facility] 00:00:00 ion Michelle [place] chaya [facility] 2023-03-10 2023-03-[address] [facility] [id number] 10:00:00 11:00:[address] [facility] 2023-03-10 2023-03-10 Outpatient VERONIQUE DELGADO [facility] [id number] [facility] 00:00:00 00:00:00 [facility] 2023-03-08 2023-03-08 Outpatient SFA SFA [id number] [place] 16:19:28 16:19:28 [id number] F Garfield 2022-12-22 2022-12-22 Outpatient SFA SFA [place] 09:20:05 09:20:05 [id number] F Garfield 2022-12-01 2022-12-01 Outpatient SFA SFA [place] 09:41:49 09:41:49 [id number] F Garfield 2022-11-18 2022-11-18 Outpatient SFA SFA [place] 16:40:54 16:40:54 [id number] F Garfield 2022-11-11 2022-11-11 Outpatient SFA SFA [place] 08:28:15 08:28:15 F Garfield 2022-11-02 2022-11-02 Outpatient SFA SFA [place] 09:34:36 09:34:36 F Garfield 2022-10-05 2022-10-05 Outpatient SFA SFA [place] 10:47:07 10:47:07 F Garfield 2022-09-20 2022-09-20 Outpatient SFA SFA [id number] [facility] 13:28:34 13:28:34 [facility] 2022-09-09 2022-09-09 Outpatient SFA SFA S[facility]am 13:45:17 13:45:17 [facility] 2022-09-08 2022-09-08 Outpatient SFA SFA [place] 17:20:04 17:20:04 [facility] 2022-08-25 2022-08-25 Outpatient SFA SFA [place] 10:39:31 10:39:31 [facility] 2022-08-19 2022-08-19 Outpatient SFA SFA [id number] [place] 09:39:44 09:39:44 [facility] 2022-08-17 2022-08-17 Outpatient SFA SFA [id number] [place] 15:23:19 15:23:19 [facility] Results Test Description Test Time Test Comments Results Result Comments Source ALPHA FETOPROTEIN (AFP), TUMOR MARKER 2023-04-21 17:52:44 Test Item Value Reference Range Interpretation Comme nts ALPHA-FETOPROTEIN (BEAKER) (test code = 1094) 20963.9 ng/mL <10.0 H Field Control Inspector ID - ADMINOperator ID - ADMINCARCINOEMBRYONIC ANTIGEN (CEA)2023-04-21 17:50:11 Test Item Value Reference Range Interpretation Comments CARCINOEMBRYONIC ANTIGEN (BEAKER) 4.4 ng/mL 0.0-5.0 (test code = 685) Field Control Inspector ID - ADMINHEPATIC FUNCTION [id number] 17:05:15 Test Item Value Reference Range Interpretation Comments TOTAL PROTEIN (BEAKER) (test code = 7.0 gm/dL 6.0-8.3 770) ALBUMIN (BEAKER) (test code = 1145) 3.5 g/dL 3.5-5.0 BILIRUBIN TOTAL (BEAKER) (test code 4.3 mg/dL 0.2-1.2 H = 377) BILIRUBIN DIRECT (BEAKER) (test 1.8 mg/dL 0.1-0.5 H code = 706) ALKALINE PHOSPHATASE (BEAKER) (test 78 U/L 40-150 code = 346) AST (SGOT) (BEAKER) (test code = 72 U/L 5-34 H 353) ALT (SGPT) (BEAKER) (test code = 27 U/L 6-55 347) Field Control Inspector ID - MMSpecimen moderately ictericBASIC METABOLIC [id number] 17:05:15 Test Item Value Reference Range Interpretation Comments SODIUM (BEAKER) 137 meq/L 136-145 (test code = 381) POTASSIUM 3.4 meq/L 3.5-5.1 L (BEAKER) (test code = 379) CHLORIDE (BEAKER) 102 meq/L 98-107 (test code = 382) CO2 (BEAKER) 22 meq/L 22-29 (test code = 355) BLOOD UREA 10 mg/dL 7-21 NITROGEN (BEAKER) (test code = 354) CREATININE 1.03 mg/dL 0.57-1.25 (BEAKER) (test code = 358) GLUCOSE RANDOM 105 mg/dL 70-105 (BEAKER) (test code = 652) CALCIUM (BEAKER) 8.8 mg/dL 8.4-10.2 (test code = 697) EGFR (BEAKER) 60 Interpretatio n of eGFR (test code = mL/min/1.73 values Stage De scription 1092) sq m Result G1 Che l or high >=90 G2 Mildly decreased 60-89 G3a Mildl y to moderately 45-5 9 G3b Moderately to s everely 30-44 G4 Severl y decreased 15-29 G5 Kidney failure <15Reported eGF R is based on the CKD-EPI 2020 equation that d oes not use a race coefficientEsti mated GFR is not as accur ate as Creatinine Sveta molly in predicting glom erular filtration rate . Estimated GFR is not appl icable for dialysis patien ts Field Control Inspector ID - MMSpecimen moderately ictericPROTHROMBIN [id number] 16:53:01 Test Item Value Reference Range Interpretation Comments PROTIME (BEAKER) (test code = 17.4 seconds 11.9-14.2 H 759) INR (BEAKER) (test code = 370) 1.46 <=5.90 RECOMMENDED COUMADIN/WARFARIN INR THERAPY RANGESSTANDARD DOSE: 2.0 - 3.0 Includes: PROPHYLAXIS for venous thrombosis, systemic embolization; TREATMENT for venous thrombosis and/or pulmonary embolus.HIGH RISK: Target INR is 2.5-3.5 for patients with mechanical heart valves.CBC W/PLT COUNT & AUTO [id number] 16:47:14 Test Item Value Reference Range Interpretation Comments WHITE BLOOD CELL COUNT (BEAKER) 5.3 K/ L 3.5-10.5 (test code = 775) RED BLOOD CELL COUNT (BEAKER) 3.96 M/ L 3.93-5.22 (test code = 761) HEMOGLOBIN (BEAKER) (test code = 12.0 GM/DL 11.2-15.7 410) HEMATOCRIT (BEAKER) (test code = 35.9 % 34.1-44.9 411) MEAN CORPUSCULAR VOLUME (BEAKER) 91 fL 79-95 (test code = 753) MEAN CORPUSCULAR HEMOGLOBIN 30.3 pg 25.6-32.2 (BEAKER) (test code = 751) MEAN CORPUSCULAR HEMOGLOBIN CONC 33.4 GM/DL 32.2-35.5 (BEAKER) (test code = 752) RED CELL DISTRIBUTION WIDTH 16.6 % 11.7-14.4 H (BEAKER) (test code = 412) PLATELET COUNT (BEAKER) (test 153 K/CU MM 150-450 code = 756) MEAN PLATELET VOLUME (BEAKER) 10.5 fL 9.4-12.3 (test code = 754) NUCLEATED RED BLOOD CELLS 0 /100 WBC 0-0 (BEAKER) (test code = 413) NEUTROPHILS RELATIVE PERCENT 56 % (BEAKER) (test code = 429) LYMPHOCYTES RELATIVE PERCENT 26 % (BEAKER) (test code = 430) MONOCYTES RELATIVE PERCENT 14 % (BEAKER) (test code = 431) EOSINOPHILS RELATIVE PERCENT 2 % (BEAKER) (test code = 432) BASOPHILS RELATIVE PERCENT 1 % (BEAKER) (test code = 437) NEUTROPHILS ABSOLUTE COUNT 3.00 K/ L 1.56-6.13 (BEAKER) (test code = 670) LYMPHOCYTES ABSOLUTE COUNT 1.36 K/ L 1.18-3.74 (BEAKER) (test code = 414) MONOCYTES ABSOLUTE COUNT (BEAKER) 0.77 K/ L 0.24-0.36 H (test code = 415) EOSINOPHILS ABSOLUTE COUNT 0.12 K/ L 0.04-0.36 (BEAKER) (test code = 416) BASOPHILS ABSOLUTE COUNT (BEAKER) 0.07 K/ L 0.01-0.08 (test code = 417) IMMATURE GRANULOCYTES-RELATIVE 0.40 % 0.00-1.00 PERCENT (BEAKER) (test code = 2801) [id number] 18:32:48Medical Cytology Report Case: [id number] Authorizing Provider: Rach Gonzalez MD Collected: 04/14/2023 01:32 PM Ordering Location: [facility] Received: 04/18/2023 04:17 PM Pathologist: Laly Sung MD Specimen: Peritoneal Fluid PERITONEAL FLUID (CYTOSPINS): - NEGATIVE FOR MALIGNANCY Reactive mesothelial cells and mixed chronic inflammatory cells present Signing Pathologist Direct Phone Line: [phone] signed by Trev Sung MD on 04/19/2023 at 6:32 [id number] y.o. Fwith h/o Cancer (HCC), HCV, cirrhosisPERITONEAL FLUIDA. Peritoneal FluidReceived 8 ml yellow fluid; prepared 4 cytospins, not enough material for cell block. Performed.[facility], [facility], [address] [place] [address], [facility], [facility], [address] [place] [address], [facility], Department of Pathology, [address] [place] [address], IBODIYANVWANC METABOLIC [id number] 17:06:28 Test Item Value Reference Range Interpretation Comments TOTAL PROTEIN 7.1 gm/dL 6.0-8.3 Specimen sligh tly (BEAKER) (test hemolyzed code = 770) ALBUMIN (BEAKER) 3.8 g/dL 3.5-5.0 Specimen sl ightly (test code = 1145) hemolyzed ALKALINE 74 U/L 40-150 PHOSPHATASE (BEAKER) (test code = 346) BILIRUBIN TOTAL 4.8 mg/dL 0.2-1.2 H Specimen sli ghtly (BEAKER) (test hemolyzed code = 377) SODIUM (BEAKER) 136 meq/L 136-145 (test code = 381) POTASSIUM (BEAKER) 3.6 meq/L 3.5-5.1 Specimen slightly (test code = 379) hemolyzed CHLORIDE (BEAKER) 103 meq/L 98-107 (test code = 382) CO2 (BEAKER) (test 23 meq/L 22-29 code = 355) BLOOD UREA 11 mg/dL 7-21 NITROGEN (BEAKER) (test code = 354) CREATININE 0.86 mg/dL 0.57-1.25 Specimen slight ly (BEAKER) (test hemolyzed code = 358) GLUCOSE RANDOM 99 mg/dL 70-105 (BEAKER) (test code = 652) CALCIUM (BEAKER) 9.2 mg/dL 8.4-10.2 (test code = 697) AST (SGOT) 71 U/L 5-34 H Specimen slight ly (BEAKER) (test hemolyzed code = 353) ALT (SGPT) 27 U/L 6-55 Specimen slight ly (BEAKER) (test hemolyzed code = 347) EGFR (BEAKER) 74 Interpretatio n of eGFR (test code = 1092) mL/min/1.[address] age Description sq m Result G1 Che l or high >=90 G2 Mildly decreased 60-89 G3a Mildl y to moderately 45-5 9 G3b Moderately to s everely 30-44 G4 Severl y decreased 15-29 G5 Kidney failure <15Reported eGF R is based on the CKD-EPI 1 equation that d oes not use a race coefficientEsti mated GFR is not as accur ate as Creatinine Sveta molly in predicting glom erular filtration rate . Estimated GFR is not appl icable for dialysis patien ts Specimen slightly ictericU/S, [id number] 16:42:00Send ascitic fluid for cell count and differential If Cr > 1.5, do not remove more than 3.5L of ascitic fluid. If > 3L removed, please administer 200 mL of albumin 25% (50 grams) IV x 1Labs to beordered:->Cell CountReason for Exam:->Ascites, cirrhosisYADI ST. [facility] : 1955 Sex: FFINAL REPORT Ultrasound guided paracentesis. Clinical History: Ascites. Sedation: None. Plater Helper: Freda Ewing PA-C Deli Bakery Clerk: None. Estimated Blood Loss: < 1 cc. Specimen: 4750 cc of clear yellow fluid, samples sent to laboratory. Technique: Informed consent was obtained. The risks of pain, bleeding, infection, bowel perforation, injury to adjacent structures, and adverse medication reactions were discussed with the patient. After informed consent was obtained, the patient's abdomen was scanned. The right upper quadrant of the abdomen was selected for paracentesis. Afterthe largest fluid pocket area was marked, and the anterior abdominal wall was evaluated with color Doppler to exclude presence of blood vessels traversing the area, the skin was prepped and draped in the usual sterile manner. After local anesthesia was achieved with 2% lidocaine, a 5 Kazakh one-step catheter was advanced into the peritoneal cavity under ultrasound guidance. After completion of drainage, the catheter was removed. There was no evidence of complication. Impression:Successful ultrasoundguided paracentesis. Signed: Jerry Villatoro Verified Date/Time: 04/14/2023 16:42:18 Reading Location: [address] Ultrasound Reading Room Electronically signed by: JERRY VILLATORO MD on 2022 04:42 PMBODY FLUID CELL COUNT WITH [id number] 16:12:21 Test Item Value Reference Range Interpretation Comments APPEARANCE FLUID (BEAKER) Slightly Hazy Clear A (test code = 510) COLOR FLUID (BEAKER) (test Straw Colorless, Straw code = 511) RBC FLUID (BEAKER) (test code 1541 /cu mm <=1 H = 513) TOTAL NUCLEATED CELL COUNT 13 /cu mm <=5 H (BEAKER) (test code = 1442) LINING CELLS/OTHERS DIFF'D 3 (BEAKER) (test code = 1589) ADJUSTED WBC FLUID (BEAKER) 13 /cu mm <=5 H (test code = 1691) LINING CELLS/OTHERS, 0 /cu mm <=1 CALCULATED (BEAKER) (test code = 1590) NEUTROPHILS FLUID (BEAKER) 22 % (test code = 1656) LYMPHS FLUID (BEAKER) (test 30 % code = 488) MONO/MACROPHAGE FLUID (BEAKER) 48 % (test code = 489) EOSINOPHILS FLUID (BEAKER) 0 % (test code = 491) BASO FLUID (BEAKER) (test code 0 % = 492) CONTAINER BODY FLUID (BEAKER) Sterile Vial (test code = 2873) [id number] 12:35:46 Test Item Value Reference Range Interpretation Comments POC-CREATININ 0.9 mg/dL 0.6-1.3 : TESTED AT [facility] [address]BEAKER) [facility], [address]: (test code = Field Control Inspector/Techni al ID = [id number]) [id number] for Fall er, Tanisha POC-EGFR 70 Interpretation of eGFR (BEAKER) mL/min/1.73M2 Values Stage D escription (test code = Result G1 Che l or high 1860) >=90 G2 Mildly decreased 60-89 G3a Mildl y to moderately 45-5 9 G3b Moderately to s juliana 30-44 G4 Severely dec reased 15-29 G5 Kidney Failu re <15Reported eGF R is based on the CKD-EPI 202 1 equation that does not u se a race coefficientEsti mated GFR is not as accurate as Creatinine Sveta molly in predicting glom erular filtration rate . Estimated GFR is not appl icable for dialysis patien ts CBC W/PLT COUNT & AUTO [id number] 11:36:05 Test Item Value Reference Range Interpretation Comments WHITE BLOOD CELL COUNT (BEAKER) 4.6 K/ L 3.5-10.5 (test code = 775) RED BLOOD CELL COUNT (BEAKER) 4.12 M/ L 3.93-5.22 (test code = 761) HEMOGLOBIN (BEAKER) (test code = 12.8 GM/DL 11.2-15.7 410) HEMATOCRIT (BEAKER) (test code = 36.6 % 34.1-44.9 411) MEAN CORPUSCULAR VOLUME (BEAKER) 89 fL 79-95 (test code = 753) MEAN CORPUSCULAR HEMOGLOBIN 31.1 pg 25.6-32.2 (BEAKER) (test code = 751) MEAN CORPUSCULAR HEMOGLOBIN CONC 35.0 GM/DL 32.2-35.5 (BEAKER) (test code = 752) RED CELL DISTRIBUTION WIDTH 15.9 % 11.7-14.4 H (BEAKER) (test code = 412) PLATELET COUNT (BEAKER) (test 142 K/CU MM 150-450 L code = 756) MEAN PLATELET VOLUME (BEAKER) 9.9 fL 9.4-12.3 (test code = 754) NUCLEATED RED BLOOD CELLS 0 /100 WBC 0-0 (BEAKER) (test code = 413) NEUTROPHILS RELATIVE PERCENT 59 % (BEAKER) (test code = 429) LYMPHOCYTES RELATIVE PERCENT 24 % (BEAKER) (test code = 430) MONOCYTES RELATIVE PERCENT 12 % (BEAKER) (test code = 431) EOSINOPHILS RELATIVE PERCENT 4 % (BEAKER) (test code = 432) BASOPHILS RELATIVE PERCENT 1 % (BEAKER) (test code = 437) NEUTROPHILS ABSOLUTE COUNT 2.71 K/ L 1.56-6.13 (BEAKER) (test code = 670) LYMPHOCYTES ABSOLUTE COUNT 1.10 K/ L 1.18-3.74 L (BEAKER) (test code = 414) MONOCYTES ABSOLUTE COUNT (BEAKER) 0.55 K/ L 0.24-0.36 H (test code = 415) EOSINOPHILS ABSOLUTE COUNT 0.18 K/ L 0.04-0.36 (BEAKER) (test code = 416) BASOPHILS ABSOLUTE COUNT (BEAKER) 0.06 K/ L 0.01-0.08 (test code = 417) IMMATURE GRANULOCYTES-RELATIVE 0.20 % 0.00-1.00 PERCENT (BEAKER) (test code = 2801) PROTHROMBIN [id number] 11:34:04 Test Item Value Reference Range Interpretation Comments PROTIME (BEAKER) (test code = 16.0 seconds 11.9-14.2 H 759) INR (BEAKER) (test code = 370) 1.31 <=5.90 RECOMMENDED COUMADIN/WARFARIN INR THERAPY RANGESSTANDARD DOSE: 2.0 - 3.0 Includes: PROPHYLAXIS for venous thrombosis, systemic embolization; TREATMENT for venous thrombosis and/or pulmonary embolus.HIGH RISK: Target INR is 2.5-3.5 for patients with mechanical heart valves.MR, ABDOMEN, [id number] 15:43:00 Unlisted Reason for Exam - Click Yes and Enter Reason Below->YesUnlisted Reason for Exam->cirrhosis, HCC 2.3 cm mass in November 2022 [facility] : 1955 Sex: FFINAL REPORT MRI of the abdomen with and without contrast Clinical History: Unlisted Reason for Examcirrhosis, HCC 2.3 cm mass in November 2022 Technique: Multiplanar and multisequence MR images of the abdomen are obtained before and after intravenous contrast administration. Contrast is administered to evaluate neoplasm and vasculature. Comparison: MRI dated November 16, 2022, performed at an outside institution Discussion: Liver is cirrhotic. *In segment 6, there is a exophytic 2.5 cm lesion that is T2 hyperintense, and hypoenhancing, with an apparent mildly enhancing capsule. It is not significantly changed from the previous exam and demonstrates diffusion restriction. LI-RADS 4.*In segment 7/8, there is a 1 cm arterially enhancing observation (arterial phase, series 20 image 22), with no washout or pseudocapsule, LI-RADS 3 Hepatic vasculature is patent. Main portal vein measures 1cm in diameter. The periumbilical vein is recanalized. There is no biliary ductal dilatation. Gallbladder wall edema is nonspecific in the setting of cirrhosis and portal hypertension. Spleen is borderline enlarged and measures 12 cm sagittally. The pancreas, and adrenal glands are normal. Kidneys demo nstrate no mass, or hydronephrosis. There is a large amount of ascites. Varices are present. No lymphadenopathy. Visualized bowel is unremarkable. There is mild anasarca. No suspicious bony lesion is identified. Impression: Cirrhosis, portal hypertension, and a large amount of ascites. No significant interval change in size of a T2 hyperintense and hypoenhancing 2.5 cm exophytic lesion in segment 6, LI-RADS 4. 1 cm LI-RADS 3 observation in segment 7/8. Signed: Ryann Rizoort Verified Date/Time: 04/08/2023 15:43:40 Reading Location: [facility] [id number] Ortho Consult Reading Room CT, CHEST, WITH [id number] 00:02:00Unlisted Reason for Exam - Click Yes and Enter Reason Below->Yes Unlisted Reason for Exam->HCC, r.o mets [facility] 1955 Sex: FFINAL REPORT CT of the Chest dated 04/06/2023 CLINICAL INFORMATION: Unlisted Reason for ExamHCC, r.o mets Comment: Axial images of the chest were obtained from thoracic inlet to the upperabdomen with intravenous intravenous contrast. This exam was performed according to our departmentaldose-optimization program, which includes automated exposure control, adjustment of the mA and/or kVaccording to patient size and/or use of interactive reconstruction technique. Both thyroid lobes arenormal in appearance. Heart is in upper limits of normal in size. Great vessels are unremarkable. Noadenopathy in the mediastinum or perihilar region. Trachea and mainstem bronchi are patent. A 7 mm and 10 mm nodules are seen in the left upper lobe. A 6 mm nodule is seen in the lingula. A 10 mm nodule is seen in the left lower lobe. A 5 mm nodule is seen in the right upper lobe. A 4 minute nodule isseen in the right lower lobe. The rest of the lungs are clear. No mass lesion or airspace disease isnoted. Nonspecific interstitial pulmonary disease is seen in the peripheral of both lungs. No pleural effusion is seen. Visualized upper abdomen demonstrates cirrhotic liver with splenomegaly. Small amount of ascites is seen in the upper abdomen. There is recannulization periumbilical vein. Paraesophageal varices is present. Diverticular disease is seen in the large bowel. Impression: 1. Nodular lesions in both lungs. May represent infectious or metastatic disease.2. Cirrhosis with splenomegaly and portal hypertension.3. Small ascites. Signed: [facility] Verified Date/Time: 04/07/2023 00:02:47 Liver Fibrosis, FibroTest-ActiTest Panel 2023-03-17 12:21:57 Test Item Value Reference Interpretation Comments Range Fibrosis Score 0.96 (test code = 1979561) Fibrosis Stage F4 (test code = 1497679) FIBROSIS SEE BELOW severe fibrosi s Fibro [...] Necroinflammat A1-A2 Activity Grade (test code = 66348-2) NECROINFLAMMAT SEE BELOW minimal acti vity INTERP [...] (test code = syndrome or hem olysis, 3631654) check non conju gated bilirubin. Chec k if haemolysis as bilirubin is hi gh and haptoglobin low . GGT (test code = 34 U/L 3-65 Suspicion o f Gilbert 4319958) syndrome or hem olysis, check non conju gated bilirubin. ALT (SGPT) (test 35 U/L 6-29 H code = 5579115) ALPHA 2 327 mg/dL 106-279 H MACROGLOBULIN (QUEST) (test code = 2530399) Haptoglobin (test <8 43-212 L Check if h aemolysis as code = 8917374) bilirubin is high and haptoglobin low . Apolipoprotein A-1 97 mg/dL 101-198 L (test code = 5886918) NECROINFLAM ACT 0.38 SCORE (QUEST) (test code = 4470031) REFERENCE ID [id number] (QUEST) (test code = 6307562) FOOTNOTE (QUEST) SEE BELOW The reliab ility of (test code = results is depe ndent 8220721) on compliance w ith the preanalytical a nd analytical cond itions recommended by [employer]. The tests have to b e deferred [...] perf ormance characteristics have been determined by [facility]. It has not been cleared or approvedby the U.S. Food and Drug Administration. Performance characteristics referto the davion lytical performance of the test. Kaycee, [facility], th e associated logo , [facility] te and allassociated Q uest Diagnostics mar ks are the registered trademarks of [employer]. All third alliance party mar ks - (R) and (TM) - are the property of theirrespective owners. (C) 200 0-2013 [facility] [employer] Incorporated. A ll rightsreserved. WILVER (test code = Performing Lab WILVER) EZ [facility] [address] [place] [address] Joe Rodriguez MD, PhD, SCOTT Lab Interpretation Abnormal (test code = 26316-0) [facility] Fibrosis, FibroTest-ActiTest [id number] 12:21:57 Test Item Value Reference Interpretation Comments Range Fibrosis Score 0.96 (test code = 1310715) Fibrosis Stage F4 (test code = 5781924) FIBROSIS SEE BELOW severe fibrosi s Fibro [...] Necroinflammat A1-A2 Activity Grade (test code = 13357-6) NECROINFLAMMAT SEE BELOW minimal acti vity INTERP [...] (test 35 U/L 6-29 H code = 9163158) ALPHA 2 327 mg/dL 106-279 H MACROGLOBULIN (QUEST) (test code = 5586873) Haptoglobin (test <8 43-212 L Check if h aemolysis as code = 9932485) bilirubin is high and haptoglobin low . Apolipoprotein A-1 97 mg/dL 101-198 L (test code = 2954758) NECROINFLAM ACT 0.38 SCORE (QUEST) (test code = 2995205) REFERENCE ID [id number] (QUEST) (test code = 4818505) FOOTNOTE (QUEST) SEE BELOW The reliab ility of (test code = results is depe ndent 8352488) on compliance w ith the preanalytical a [...] perf ormance characteristics have been determined by [facility]. It has not been cleared or approvedby the U.S. Food and Drug Administration. Performance characteristics referto the davion lytical performance of the test. Quest, [facility], th e associated logo , [facility] and allassociated Q uest Diagnostics mar ks are the registered trademarks of [employer]. All third alliance party mar ks - (R) and (TM) - are the property of theirrespective owners. (C) [employer]. A ll rightsreserved. WILVER (test code = Performing Lab WILVER) EZ [facility] [address] [place] [address] Joe Rodriguez MD, PhD, SCOTT Lab Interpretation Abnormal (test code = 48232-2) [facility] PCR, [id number] 05:44:38 Test Item Value Reference Range Interpretation Comments HCV NUMERIC RESULT (BEAKER) 3400310 IU/mL <15 H (test code = 2700) ALPHA FETOPROTEIN (AFP), TUMOR [id number] 14:56:57 Test Item Value Reference Range Interpretation Comments ALPHA-FETOPROTEIN (BEAKER) (test 9109.5 ng/mL <10.0 H code = 1094) Field Control Inspector ID - ADMINOperator ID - ADMINHEPATITIS B CORE ANTIBODY, [id number] 14:52:32 Test Item Value Reference Range Interpretation Comments HEPATITIS B CORE TOTAL ANTIBODY Nonreactive Nonreactive (BEAKER) (test code = 497) Field Control Inspector ID - ADMINHIV-1 ANTIGEN WITH HIV-1/2 [id number] 14:52:32 Test Item Value Reference Range Interpretation Comments HIV-1 ANTIGEN WITH HIV 1\T\2 Nonreactive Nonreactive ANTIBODY (2) (BEAKER) (test code = 2586) Field Control Inspector ID - ADMINHEPATITIS A ANTIBODY, [id number] 14:52:32 Test Item Value Reference Range Interpretation Comments HEPATITIS A IGG ANTIBODY (BEAKER) Nonreactive Nonreactive (test code = 2797) Field Control Inspector ID - ADMINCARCINOEMBRYONIC ANTIGEN (CEA)2023-03-10 14:52:26 Test Item Value Reference Range Interpretation Comments CARCINOEMBRYONIC ANTIGEN (BEAKER) 4.1 ng/mL 0.0-5.0 (test code = 685) Field Control Inspector ID - ADMINBASIC METABOLIC [id number] 14:07:03 Test Item Value Reference Range Interpretation [...] not as accur ate as Creatinine Sveta barnes in predicting glom erular filtration rate . Estimated GFR is not appl icable for dialysis patien ts Field Control Inspector ID - ADMINSpecimen slightly ictericHEPATIC FUNCTION [id number] 14:07:03 Test Item Value Reference Range Interpretation [...] (test code = 39 U/L 6-55 347) Field Control Inspector ID - ADMINSpecimen slightly ictericPROTHROMBIN [id number] 13:25:20 Test Item Value Reference Range Interpretation [...] mechanical heart valves.CBC W/PLT COUNT & AUTO [id number] 13:17:55 Test Item Value Reference Range Interpretation [...] (BEAKER) (test code = 2801) HEPATITIS C [id number] 13:15:29 Test Item Value Reference Range Interpretation Comments HEPATITIS C GENOTYPE 3 Assay methodology is (test code = 82313) real-micheal e PCR amplification of the 5'UTR an dNS5b regions of the HCV lisa me utilizing the [email or web address] Real Time HCVGenotype II assay and Holm HCV Lisa type Plus assay. Possible genotypes include 1a, 1b, 2, 3, 4, 5, and 6. UNLESS O THERWISE INDICATED, ALL TESTING PERFORMED [facility] PATHOLOGY LABOR [facility] [address] [place] [address] LABORATOR Y DIRECTOR: JORGE CONDE M.D. CLIA NUMBER [id number] CAP ACCREDITATION N O. [id number] AFP, TUMOR [id number] 09:35:09 Test Item Value Reference Range Interpretation Comments AFP, TUMOR MARKER 42954.00 NG/ML See_Comment H [Automa murtaza message] (test code = [place] [address]) generated this result transmitted ref erence range: <=8.30. The reference range was not used to int erpret this result as normal/abnormal . DAVION (ANTI-NUCLEAR AB) WITH REFLEX [id number] 00:57:23 Test Item Value Reference Range Interpretation Comments ANTI-NUCLEAR POSITIVE NEGATIVE A ANTIBODIES (test code = 3506) DAVION PATTERN SEE BELOW (REPORTED TITER) (test code = 68118) HOMOGENEOUS (test 1:320 TITER NEGATIVE H code = 64125) SPECKLED (test NEGATIVE TITER NEGATIVE code = 430661) DENSE FINE NEGATIVE TITER NEGATIVE SPECKLED (test code = 04800) CENTROMERE (test NEGATIVE TITER NEGATIVE code = 309236) COARSE SPECKLED NEGATIVE TITER NEGATIVE (test code = 613388) DISCRETE NUCLEAR NEGATIVE TITER NEGATIVE DOTS (test code = 600029) NUCLEOLAR (test NEGATIVE TITER NEGATIVE code = 746083) NUCLEAR MEMBRANE NEGATIVE TITER NEGATIVE (test code = 828291) CYTO. RETICULAR NEGATIVE NEGATIVE (REUBEN) (test code = 698691) COMMENTS (test NONE code = 987383) METHOD (test code (NOTE) NOTE: EFF ECTIVE = 30083) 06/21/2022, MET HOD IS TRANSITIONED TO THE [facility]. THE METHOD INCLUDES A SCREENTHRESHOLD OF 1:80, DIGITIZED AND COMPUTER ALGORITHM-NOLBERTO TEDINTE RPRETATION OF T ITERS AND DIGITAL PAT TERNS, AND HEp-2 CELLL INE SUBSTRATE. FINESSE TIONAL UNUSUAL PATTERN S WILL BE GIVEN ASCOMM ENTS. FOR MORE INFORM ATION, SEE [email or web address] [id number] 06:51:48 Test Item Value Reference Range Interpretation Comments FERRITIN (test code = 2075) 333 NG/ML 13-200 H VITAMIN B 12 AND FOLIC [id number] 06:51:48 Test Item Value Reference Range Interpretation [...] . . . . UG/L >=6.0 UNLESS O THERWISE INDICATED, ALL TESTING PERFORMED [facility] PATHOLOGY LABOR [employer] [address] [place] [address] LABORATORY DIRE CTOR: JORGE CONDE M.D. CLIA NUMBER [id number] [place] [id number] HEPATITIS PANEL, [id number] 05:14:35 Test Item Value Reference Range Interpretation Comments HEPATITIS A IgM (test NON-REACTIVE NON-REACTIVE code = 67926) HEPATITIS B CORE IgM NON-REACTIVE NON-REACTIVE (test code = 4644) HEPATITIS B SURF AG NON-REACTIVE NON-REACTIVE (test code = 2739) HEPATITIS C ANTIBODY REACTIVE NON-REACTIVE A (test code = 4675) INTERPRETATION (NOTE) Hepatitis A HEPATITIS A: (test serology shows no code = 2552) evidence of acu te hepatitis A. INTERPRETATION (NOTE) Hepatitis B HEPATITIS B: (test serology shows no code = 87713) evidence of ac tulio hepatitis B and no indication of exposure to hepatitis B vir us in the previous si xto eight months. INTERPRETATION (NOTE) Hepatitis C HEPATITIS C: (test serology is code = 30230) consistent wit h exposure to hepatitis Cviru s. The CDC recomme nds performing a supplemental confirmatory te ston initial positiv e hepatitis C ant ibody tests. HCV PCR quantitativecan be used to confirm these results o n a new sample (See MMWR, 2003;52 R R-3). [id number] 04:48:58 Test Item Value Reference Range Interpretation Comments GGT (test code = 2216) 63 U/L <40 H [id number] 04:48:58 Test Item Value Reference Range Interpretation Comments TRANSFERRIN (test code = 4936) 210 MG/DL 200-360 IRON BINDING CAPACITY AND IRON AND % [id number] 04:48:29 Test Item Value Reference Range Interpretation Comments IRON, SERUM (test code = 2222) 117 UG/DL 37-145 UNSATURATED IBC (test code = 71422) 141 UG/DL 112-347 CALC TOTAL IBC (test code = 207) 258 UG/DL 250-450 CALC % IRON SAT (test code = 2079) 45 % 20-50 HEMOGLOBIN [id number] 11:45:56 Test Item Value Reference Range Interpretation Comments HEMOGLOBIN A1c (test code = 31166) 5.0 % 4.2-5.6 LIPID [id number] 07:24:18 Test Item Value Reference Range Interpretation [...] MOREINFORMATION , SEE CLIENT ANNOUNCE MENT AT [email or web address] RISK RATIO LDL/HDL 1.70 RATIO <3.22 (test code = 2238) COMPREHENSIVE METABOLIC [id number] 07:24:18 Test Item Value Reference Range Interpretation Comments GLUCOSE (test code = 84 MG/DL 70-99 2216) BUN (test code = 11 MG/DL 8-23 2207) CREATININE (test 0.55 MG/DL 0.60-1.30 L code = 2214) eGFR (2020 CKD-EPI) 101 >60 (test code = 98367) ML/MIN/1.73 CALC BUN/CREAT (test 20 RATIO 6-28 code = 2235) SODIUM (test code = 142 MEQ/L 240-107 2725) POTASSIUM (test code 3.8 MEQ/L 3.5-5.4 = [...] 79 U/L 5-40 H UNLESS OTH ERWISE 9) INDICATED, ALL TESTING PERFORM [facility] [place] [address] [place] [address] ANALILIA ITZEL DIRECTOR: JORGE MCGRATH M.D. CLIA NUMBER [id number] CAP ACCREDITATION N O. [id number]
[2023-04-30 00:24] LABS: Hematocrit 34.6 % (36.0-45.0); Lymphocytes % 11.7 % (15.3-44.8); MCV 91.4 fL (80-100); RBC Red Blood Cell Count 3.78 M/uL (3.86-4.86)
[2023-04-30 00:27] LABS: Protime INR 1.35
[2023-04-30] MEDS ORDERED: MORPHINE 4 MG/ML SYR ONE (00:40)
[2023-04-30] MEDS ORDERED: ALBUMIN HUMAN 25% 100 ML IV ONE (00:41)
[2023-04-30] MEDS ORDERED: ONDANSETRON 4 MG/2 ML VIAL ONE ×2 (00:41→05:15)
[2023-04-30 01:29] LABS: Bilirubin Total 3.7 mg/dL (0.2-1.0); Protein, Total 6.9 g/dL (6.4-8.2); Troponin High Sensitivity 14.1 pg/mL (<58.9)
[2023-04-30] MEDS ORDERED: LIDOCAINE 1% MPF 30 ML VIAL ONE (03:23)
--- NOTE | 2023-04-30 05:04 | EDPHYS ---
Physician Documentation [facility] Name: Edith Buck Age: 68 yrs Sex: Female : 1955 Arrival Date: 04/29/2023 Time: 23:45 Bed 2 Private MD: ED Physician Jacobo Lucio HPI: 04/29 23:52 This 68 yrs old Female presents to ER via Unassigned with complaints of sp4 Shortness Of Breath. 04/30 03:53 Patient with past medical history of cirrhosis of the liver, presents with worsening sp4 abdominal distention with shortness of breath developing gradual in the last 3.5 weeks. Patient had paracentesis at [facility] [address] Gonzalez with gastroenterology.. Patient experiences diffuse abdominal pain, shortness of breath, and is feeling unwell. She is here for paracentesis . Historical: - Allergies: 00:04 Amoxicillin; as6 00:04 Codeine; as6 00:04 PENICILLINS; as6 - PMHx: 00:04 alcohol abuse; cirrhosis of liver; liver ca; as6 - PSHx: 00:08 Tonsillectomy; Total abdominal hysterectomy; Ligation of fallopian tube; as6 - Immunization history:: Client reports receiving the 2nd dose of the Covid vaccine, moderna. - Social history:: Smoking status: Patient/guardian denies using tobacco, Stopped _ months ago 3. - Family history:: not pertinent. ROS: 03:53 Constitutional: Negative for fever, chills, and weight loss, Eyes: Negative for injury, sp4 pain, redness, and discharge, ENT: Negative for injury, pain, and discharge, Neck: Negative for injury, pain, and swelling, Cardiovascular: Negative for chest pain, palpitations, and edema, Respiratory: Negative for cough, wheezing, and pleuritic chest pain, positive for dyspnea. Abdomen/GI: Negative for nausea, vomiting, diarrhea, and constipation, positive for abdominal distention and pain. Positive for ascites Back: Negative for injury and pain, : Negative for injury, bleeding, discharge, and swelling, MS/Extremity: Negative for injury and deformity, Skin: Negative for injury, rash, and discoloration, Neuro: Negative for headache, weakness, numbness, tingling, and seizure, Psych: Negative for depression, anxiety, Allergy/Immunology: Negative for hives, rash, and allergies Endocrine: Negative for neck swelling, polydipsia, polyuria, polyphagia, and weight changes Hematologic/Lymphatic: Negative for swollen nodes, abnormal bleeding, and unusual bruising Exam: 03:53 Constitutional: This is a well developed, well nourished patient who is awake, alert, sp4 and in no acute distress. Is mild jaundice Head/Face: Normocephalic, atraumatic. Eyes: Pupils equal round and reactive to light, extra-ocular motions intact. Lids and lashes normal. Conjunctiva and sclera are not injected. Cornea within normal limits. Periorbital areas with no swelling, redness, or edema. ENT: Nares patent. No nasal discharge, no septal abnormalities noted. Tympanic membranes are normal and external auditory canals are clear. Oropharynx with no redness, swelling, or masses, exudates, or evidence of obstruction, uvula midline. Mucous membranes moist. Neck: Trachea midline, no thyromegaly or masses palpated, and no cervical lymphadenopathy. Supple, full range of motion without nuchal rigidity, or vertebral point tenderness. Chest/axilla: Normal chest wall appearance and motion. Nontender with no deformity. No lesions are appreciated. Cardiovascular: Regular rate and rhythm with a normal S1 and S2. No gallops, murmurs, or rubs. Normal PMI, no JVD. No pulse deficits. Respiratory: Lungs have equal breath sounds bilaterally, clear to auscultation and percussion. No rales, rhonchi or wheezes noted. No increased work of breathing, no retractions or nasal flaring. Abdomen/GI: Soft, there is mild distention that is ascites there is fluid wave and there is abdominal tenderness diffuse Back: No spinal tenderness. No costovertebral tenderness. Skin: Warm, dry with normal turgor. Normal color with no rashes, no lesions, and no evidence of cellulitis. MS/ Extremity: Pulses equal, no cyanosis. Neurovascular intact. Full, normal range of motion. Neuro: Awake and alert, GCS 15, oriented to person, place, time, and situation. Cranial nerves II-XII grossly intact. Motor strength 5/5 in all extremities. Sensory grossly intact. Psych: Awake, alert, with orientation to person, place and time. Behavior, mood, and affect are within normal limits 06:24 ECG was reviewed by the Attending Physician. WithEKG time 0043, EKG reveals sinus sp4 rhythm at a rate of 91 first-degree AV block, no ST elevation or depression, no ectopy, respiratory motion artifact, otherwise normal EKG. Vital Signs: 00:01 BP 136 / 51; Pulse 95; Resp 18 S; Temp 98.1(TE); Pulse Ox 98% on R/A; as6 00:07 Weight 75.3 kg (R); Height 5 ft. 4 in. (R); Pain 10/10; as6 00:48 BP 174 / 64; Pulse 90; Resp 24; Pulse Ox 98% ; kl 01:15 BP 163 / 63; Pulse 86; Resp 18 S; Pulse Ox 97% on R/A; ha1 02:15 BP 167 / 65; Pulse 86; Resp 16 S; Pulse Ox 95% on R/A; ha1 03:15 BP 154 / 57; Pulse 86; Resp 16 S; Pulse Ox 95% on R/A; ha1 04:00 BP 154 / 48; Pulse 86; Resp 17 S; Pulse Ox 94% on R/A; ha1 00:07 Body Mass Index 28.49 (75.30 kg, 162.56 cm) as6 00:07 Pain Scale: Adult as6 Procedures: 03:40 Paracentesis: The risks and benefits of the procedure were discussed with the patient sp4 or guardian in detail, aseptic technique was employed throughout the procedure, the catheter was placed in the right lower quadrant, appoximately 5 liters of fluid was removed, the fluid was serous, the patient tolerated the procedure well, the patient did not experience any apparent complications, Patient tolerated procedure without complication, ultrasound guidance was used to localize large pocket of fluid.. MDM: 04/29 23:54 Patient medically screened. sp4 04/30 05:01 Differential diagnosis: CHF exacerbation, Chronic Obstructive Pulmonary Disease sp4 pneumonia, Psychogenic pulmonary edema, Tense ascites. Data reviewed: vital signs, nurses notes, lab test result(s), CBC, electrolytes, hepatic panel, radiologic studies. Consideration of Admission/Observation Escalation of care including admission/observation considered. ED course: Paracentesis accomplished in the emergency department with 5 L of straw-colored ascitic fluid evacuated. Patient feels much improved. At this time patient is stable for discharge home. Will advise follow-up with line erector apprentice for consistent ascitic fluid drainage on a monthly basis.. 04/29 23:53 Order name: CBC with Diff; Complete Time: 03:04 4 04/29 23:53 Order name: CMP; Complete Time: 03:04 4 04/29 23:53 Order name: Lipase; Complete Time: 03:04 4 04/29 23:54 Order name: NT PRO-BNP; Complete Time: 03:04 4 04/29 23:54 Order name: PT-INR; Complete Time: 03:04 sp4 04/29 23:54 Order name: Troponin HS; Complete Time: 03:04 4 04/29 23:54 Order name: XRAY Chest (1 view) [facility] 04/29 23:54 Order name: EKG; Complete Time: 23:55 4 04/29 23:53 Order name: IV Saline Lock; Complete Time: 00:38 4 04/29 23:53 Order name: Labs collected and sent; Complete Time: 00:38 sp4 04/29 23:54 Order name: Cardiac monitoring; Complete Time: 00:39 sp4 04/29 23:54 Order name: EKG - Nurse/Tech; Complete Time: 00:39 sp4 04/29 23:54 Order name: O2 Per Protocol; Complete Time: 00:39 sp4 04/29 23:54 Order name: O2 Sat Monitoring; Complete Time: 00:39 sp4 04/30 00:29 Order name: Misc. Order: new green top, hemolyzed; Complete Time: 00:39 sb4 EC:24 Rate is 91 beats/min. Rhythm is regular, Normal Sinus Rhythm. QRS [place] is Normal. [place] sp4 interval is prolonged. QRS interval is normal. QT interval is normal. No Q waves. No ST changes noted. Clinical impression: No evidence of ischemia. Interpreted by me. Administered Medications: 00:39 Drug: Ondansetron IVP 4 mg Route: IVP; Site: left hand; ha1 01:10 Follow up: Response: No adverse reaction ha1 00:42 Drug: morphine IVP or IV 4 mg Route: IVP; Infused Over: 4 mins; Site: left hand; ha1 01:10 Follow up: Response: No adverse reaction; Pain is decreased; RASS: Alert and Calm (0) ha1 00:46 Drug: Albumin IVPB 25 grams Volume: 100 ml; Route: IVPB; Site: left hand; ha1 01:30 Follow up: Response: No adverse reaction; IV Status: Completed infusion; IV Intake: 51puke2 03:15 Drug: Lidocaine Infiltration (1 %) 30 ml {Note: administered by Dr. Centeno..} Volume: ha1 20 ml; Route: Infiltration; 05:11 Drug: metoCLOPramide IVP 10 mg Route: IVP; Site: left hand; jb4 05:13 Drug: morphine IVP or IV 2 mg Route: IVP; Infused Over: 4 mins; Site: left hand; jb4 Disposition Summary: 04/30/23 05:03 Discharge Ordered Location: Home sp4 Problem: new sp4 Symptoms: have improved sp4 Condition: Stable sp4 Diagnosis - Alcoholic cirrhosis of liver with ascites sp4 - Other ascites sp4 - Ascites with shortness of breath, hypoalbuminemia sp4 Followup: sp4 - With: Private Physician - When: 7 - 10 days - Reason: Recheck today's complaints Discharge Instructions: - Discharge Summary Sheet sp4 - Ascites sp4 - Paracentesis, Care After sp4 Signatures: Dispatcher [employer] EDMS Bella Zuniga RN RN kl Bryson, James, RN RN jb4 Mina Horner RN RN as6 Brittany Rollins RN RN ha1 Shantel Lennon PA-C PA-C sb4 Jacobo Lucio MD MD sp4 Corrections: (The following items were deleted from the chart) 05:01 03:40 Paracentesis: The risks and benefits of the procedure were discussed with the sp4 patient or guardian in detail, aseptic technique was employed throughout the procedure, the catheter was placed in the right lower quadrant, the fluid was serous, the patient tolerated the procedure well, the patient did not experience any apparent complications, Patient tolerated procedure without complication, ultrasound guidance was used to localize large pocket of fluid., sp4
--- NOTE | 2023-04-30 05:04 | ER ---
Nurse's Notes [facility] Name: Edith Buck Age: 68 yrs Sex: Female : 1955 Arrival Date: 04/29/2023 Time: 23:45 Bed 2 Private MD: Diagnosis: Alcoholic cirrhosis of liver with ascites;Other ascites;Ascites with shortness of breath, hypoalbuminemia Presentation: 04/30 00:01 Chief complaint: Patient's son or daughter states: "she has been feeling short of as6 breath. she was supposed to get her abdomen drained but they never called us for an appointment". Coronavirus screen: At this time, the client does not indicate any symptoms associated with coronavirus-19. Ebola Screen: No symptoms or risks identified at this time. Initial Sepsis Screen: Does the patient meet any 2 criteria? No. Patient's initial sepsis screen is negative. Does the patient have a suspected source of infection? No. Patient's initial sepsis screen is negative. Risk Assessment: Do you want to hurt yourself or someone else? Patient reports no desire to harm self or others. Onset of symptoms was April 30, 2023. 00:01 Method Of Arrival: Ambulatory as6 00:01 Acuity: FLORA 3 as6 Triage Assessment: 00:16 Respiratory: Onset: The symptoms/episode began/occurred gradually, the patient has ha1 moderate shortness of breath. 00:16 General: Appears uncomfortable, Behavior is calm, cooperative. Neuro: Level of ha1 Consciousness is awake, alert, obeys commands, Oriented to person, place, time, situation. Respiratory: Airway is patent Respiratory effort is even, Respiratory pattern is tachypnea. Respiratory: Reports shortness of breath at rest Breath sounds are clear bilaterally. Historical: - Allergies: 00:04 Amoxicillin; as6 00:04 Codeine; as6 00:04 PENICILLINS; as6 - PMHx: 00:04 alcohol abuse; cirrhosis of liver; liver ca; as6 - PSHx: 00:08 Tonsillectomy; Total abdominal hysterectomy; Ligation of fallopian tube; as6 - Immunization history:: Client reports receiving the 2nd dose of the Covid vaccine, moderna. - Social history:: Smoking status: Patient/guardian denies using tobacco, Stopped _ months ago 3. - Family history:: not pertinent. Screenin:16 [facility] ED Fall Risk Assessment (Adult) History of falling in the last 3 months, ha1 including since admission No falls in past 3 months (0 pts) Confusion or Disorientation No (0 pts) Intoxicated or Sedated No (0 pts) Impaired Gait No (0 pts) Mobility Assist Device Used No (0 pt) Altered Elimination No (0 pt) Score/Fall Risk Level 0 - 2 = Low Risk Oriented to surroundings, Maintained a safe environment, Educated pt \\T\\ family on fall prevention, incl call for assistance when getting out of bed, Hourly rounding (assess needs \\T\\ fall precautionary measures) done. 01:00 Abuse screen: Denies threats or abuse. Denies injuries from another. Nutritional ha1 screening: No deficits noted. Tuberculosis screening: No symptoms or risk factors identified. Assessment: 00:16 General: Appears uncomfortable, Behavior is calm, cooperative. Pain: Complains of pain ha1 in abdomen Pain does not radiate. Pain currently is 4 out of 10 on a pain scale. Neuro: Level of Consciousness is awake, alert, obeys commands, Oriented to person, place, time, situation. Respiratory: Airway is patent Respiratory effort is even, unlabored, Respiratory pattern is regular, symmetrical. Respiratory: Reports shortness of breath at rest. GI: Abdomen is round distended. Musculoskeletal: Circulation, motion, and sensation intact. 00:42 Cardiovascular: Rhythm is sinus rhythm. Respiratory: Airway is patent Respiratory kl effort is labored, Respiratory pattern is regular, Breath sounds are diminished bilaterally. 01:15 Reassessment: Patient and/or family updated on plan of care and expected duration. Pain ha1 level reassessed. Patient is alert, oriented x 3, equal unlabored respirations, skin warm/dry/pink. 02:15 Reassessment: Patient and/or family updated on plan of care and expected duration. Pain ha1 level reassessed. Patient is alert, oriented x 3, equal unlabored respirations, skin warm/dry/pink. Patient states feeling better. Patient states symptoms have improved. 03:15 Reassessment: Patient and/or family updated on plan of care and expected duration. Pain ha1 level reassessed. Patient is alert, oriented x 3, equal unlabored respirations, skin warm/dry/pink. 04:15 Reassessment: Patient and/or family updated on plan of care and expected duration. Pain ha1 level reassessed. Patient is alert, oriented x 3, equal unlabored respirations, skin warm/dry/pink. 05:10 Reassessment: Patient and/or family updated on plan of care and expected duration. Pain ha1 level reassessed. Patient is alert, oriented x 3, equal unlabored respirations, skin warm/dry/pink. pt. reports abdominal pain on the left upper quadrant. Notified Dr. Lucio. 05:59 Reassessment: Patient and/or family updated on plan of care and expected duration. Pain ha1 level reassessed. Patient is alert, oriented x 3, equal unlabored respirations, skin warm/dry/pink. Patient denies pain at this time. Patient states feeling better. Vital Signs: 00:01 BP 136 / 51; Pulse 95; Resp 18 S; Temp 98.1(TE); Pulse Ox 98% on R/A; as6 00:07 Weight 75.3 kg (R); Height 5 ft. 4 in. (R); Pain 10/10; as6 00:48 BP 174 / 64; Pulse 90; Resp 24; Pulse Ox 98% ; kl 01:15 BP 163 / 63; Pulse 86; Resp 18 S; Pulse Ox 97% on R/A; ha1 02:15 BP 167 / 65; Pulse 86; Resp 16 S; Pulse Ox 95% on R/A; ha1 03:15 BP 154 / 57; Pulse 86; Resp 16 S; Pulse Ox 95% on R/A; ha1 04:00 BP 154 / 48; Pulse 86; Resp 17 S; Pulse Ox 94% on R/A; ha1 00:07 Body Mass Index 28.49 (75.30 kg, 162.56 cm) as6 00:07 Pain Scale: Adult as6 ED Course: 04/29 23:48 Patient arrived in ED. ag3 23:52 Jacobo Lucio MD is Attending Physician. sp4 04/30 00:04 Triage completed. as6 00:05 Arm band placed on. as6 00:16 Patient has correct armband on for positive identification. Placed in gown. Bed in low ha1 position. Call light in reach. Side rails up X 1. 00:42 Inserted saline lock: 22 gauge in left ,using aseptic technique. LOWER FOEARM Blood kl collected. 00:47 EKG done, by ED staff, reviewed by Jacobo Lucio MD. jw7 01:08 XRAY Chest (1 view) In Process Unspecified. EDMS 03:44 Brittany Rollins, RN is Primary Nurse. ha1 04:37 paracentesis. patient tolerated well. ha1 05:55 IV discontinued, intact, bleeding controlled, No redness/swelling at site. Pressure ha1 dressing applied. Administered Medications: 00:39 Drug: Ondansetron IVP 4 mg Route: IVP; Site: left hand; ha1 01:10 Follow up: Response: No adverse reaction ha1 00:42 Drug: morphine IVP or IV 4 mg Route: IVP; Infused Over: 4 mins; Site: left hand; ha1 01:10 Follow up: Response: No adverse reaction; Pain is decreased; RASS: Alert and Calm (0) ha1 00:46 Drug: Albumin IVPB 25 grams Volume: 100 ml; Route: IVPB; Site: left hand; ha1 01:30 Follow up: Response: No adverse reaction; IV Status: Completed infusion; IV Intake: [id number] 03:15 Drug: Lidocaine Infiltration (1 %) 30 ml {Note: administered by Dr. Centeno..} Volume: ha1 20 ml; Route: Infiltration; 05:11 Drug: metoCLOPramide IVP 10 mg Route: IVP; Site: left hand; jb4 05:13 Drug: morphine IVP or IV 2 mg Route: IVP; Infused Over: 4 mins; Site: left hand; jb4 Medication: 05:50 VIS not applicable for this client. ha1 Intake: 01:30 IV: 50ml; Total: 50ml. ha1 Outcome: 05:03 Discharge ordered by . sp4 05:59 Patient left the ED. ha1 05:59 Discharged to home via wheelchair, with family. ha1 05:59 Condition: stable 05:59 Discharge instructions given to patient, family, Instructed on discharge instructions, follow up and referral plans. Demonstrated understanding of instructions, follow-up care. Signatures: Dispatcher [employer] EDMS Bella Zuniga RN RN kl Bryson, James, RN RN jb4 Eva Arana 3 Mina Horner RN RN as6 Mary Dean jw7 Brittany Rollins RN RN ha1 Jacobo Lucio MD MD sp4 Corrections: (The following items were deleted from the chart) 05:27 03:15 Reassessment: Patient and/or family updated on plan of care and expected ha1 duration. Pain level reassessed. Patient is alert, oriented x 3, equal unlabored respirations, skin warm/dry/pink. jb4
[2023-04-30] MEDS ORDERED: MORPHINE 2 MG/ML SYR ONE (05:15)
[2023-04-30 06:13] VITALS: TEMP 98.1
[2023-04-30 06:28] VITALS: BP 154/48; O2SAT 94
--- NOTE | 2023-05-01 19:21 | RAD REPORT ---
EXAM DESCRIPTION: XR Chest, 1 View CLINICAL HISTORY: The patient is 68 years old and is Female; CHEST PAIN TECHNIQUE: Frontal view of the chest. COMPARISON: No relevant prior studies available. FINDINGS: Lungs: Mildly prominent interstitial markings. No consolidation. Pleural space: Unremarkable. No pneumothorax. Heart: Unremarkable. Mediastinum: Unremarkable. Bones/joints: Unremarkable. IMPRESSION: No acute findings in the chest. Electronically signed by: Simon Monteiro MD 04/30/2023 1:39 AM CDT Due to temporary technical issues with the PACS/Fluency reporting system, reports are being signed by the in house radiologists without review as a courtesy to insure prompt reporting. The interpreting radiologist is fully responsible for the content of the report.
--- NOTE | 2023-05-02 17:55 | EKG ---
Test Date: 2023-04-30 Test Time: 00:43:36 Retail Clerk: GISELLE MEASUREMENT RESULTS: Intervals: Rate: 91 MA: 218 QRSD: 112 QT: 368 QTc: 452 [place]: P: 64 MA: 218 QRS: -17 T: 72 INTERPRETIVE STATEMENTS: Sinus rhythm with 1st degree AV block Cannot rule out Anterior infarct, age undetermined Abnormal ECG Compared to ECG 03/18/2023 17:06:47 First degree AV block now present Myocardial infarct finding now present T-wave abnormality no longer present Possible ischemia no longer present Prolonged QT interval no longer present Electronically Signed On 05-02-23 17:50:54 CDT by Chao Burris
== END 2023-04-30 05:59 | disposition home or self-care (01) ==
LOC: ER 23:45
PROC: 0W9G3ZZ Drainage of Peritoneal Cavity, Percutaneous Approach (ICD-10-PCS; principal; 2023-04-30)
DX: K70.31 Alcoholic cirrhosis of liver with ascites (principal); E88.09 Other disorders of plasma-protein metabolism, not elsewhere classified; Z85.05 Personal history of malignant neoplasm of liver; Z88.0 Allergy status to penicillin; Z88.1 Allergy status to other antibiotic agents; Z88.5 Allergy status to narcotic agent
CPT/HCPCS: 96365; 93005; 85025; 36415; 85610; 84484; 83690; 80053; 83880; 71045; 96375; 99284; 49083; J2001; J2270; J2405 ×2; P9047

== ENCOUNTER 2023-05-02 14:35 | Emergency (ER) | payer OTHER ==
--- OUTSIDE RECORDS SUMMARY | 2023-05-02 14:40 | XMS REPORT | Continuity of Care Document ---
:1955 Author Organization [facility] t Address [address] [place] [address] Care Team Providers Name Role Phone Records, [facility] - Other - Primary Care Physician Thais vailable RACH GONZALEZ Attending Clinician Unavailable CASSIE ABRAHAM Attending Clinician Unavailable MACARENA JACKSON Attending Clinician Unavailable Macarena Perez Attending Clinician [phone] Carlos MARINA, Marion Attending Clinician Unavailable [...] 00 Center [facility] Allergy Active High Hives 2022-[address] [facility] [address] [facility] 00 Center Codeine Propensi Active 2022-[address] ty [facility] adverse 00:00: Medical reaction 00 [place] [facility] [place] Propensi Active [facility] adverse 00:00: Medical reaction 00 [place] [facility] Family History Family Member Diagnosis Comments Start Date Stop Date Source Natural brother Liver disease [facility] Natural father Heart failure [facility] Natural mother Heart disease [facility] Natural sister Breast cancer [facility] Social History Social Habit Start Date Stop Date Quantity Comments Source Tobacco use and 2023-03-10 2023-03-10 Smokeless tobacco [facility] exposure [facility]00[facility]00 non-user [facility] Alcohol intake 2023-03-10 2023-03-10 [facility] (finding) Sex Ass[birth year] [facility] charli 00:00:00 00:00:00 Medical Center Smoking Status Start Date Stop Date Source Never smoked tobacco [facility] Medications Ordered Filled Start Stop Current [...] Source Systolic blood 2023-03-10 10:20:00 149 mm[Hg] [facility] Diastolic blood 2023-03-10 10:20:00 76 mm[Hg] [facility] Heart rate 2023-03-10 10:20:00 86 /min [facility] Body temperature 2023-03-10 10:20:00 36.78 Maryuri [facility] Respiratory rate 2023-03-10 10:20:00 18 /min [facility] Body height 2023-03-10 10:20:00 162.6 cm [facility] Body weight 2023-03-10 10:20:00 71.033 kg [facility] BMI 2023-03-10 10:20:00 26.88 kg/m2 [facility] Oxygen saturation in 2023-03-10 10:20:00 95 /min [facility] Arterial blood by Medical Ce nter Pulse oximetry Procedures Procedure Date / Time Performing Clinician Source Performed LIVER FIBROSIS, 2023-03-10 12:15:00 Rach Gonzalez [facility] FIBROTEST-ACTITEST PANEL [facility] BASIC METABOLIC PANEL 2023-03-10 12:07:00 Rach Gonzalez [facility] HEPATIC FUNCTION PANEL 2023-03-10 12:07:00 Rach Gonzalez [facility] CBC W/PLT COUNT & AUTO 2023-03-10 12:07:00 Rach Gonzalez [facility] PROTHROMBIN TIME/INR 2023-03-10 12:07:00 Rach Gonzalez [facility] ALPHA FETOPROTEIN (AFP), 2023-03-10 12:07:00 Rach Gonzalez [facility] TUMOR MARKER [facility] HEPATITIS C GENOTYPE 2023-03-10 12:07:00 Rach Gonzalez [facility] HEPATITIS C PCR, 2023-03-10 12:07:00 Rach Gonzalez [facility] HC LAB HIV-1 AG W/HIV-1&2 2023-03-10 12:07:[address] [facility] AB [facility] HEPATITIS B CORE ANTIBODY, 2023-03-10 12:07:[address] [facility] TOTAL [facility] HEPATITIS A ANTIBODY, IGG 2023-03-10 12:07:[address] [facility] CARBOHYDRATE ANTIGEN 19-9 2023-03-10 12:07:00 Rach Gonzalez [facility] ([place] 19-9) [facility] CARCINOEMBRYONIC ANTIGEN 2023-03-10 12:07:[address] [facility] (CEA) [facility] CBC W/PLT COUNT & AUTO 2023-03-10 12:07:[address] [facility] DIFFERENTIAL [facility] Plan of Care Planned Activity Planned [...] [facility] Test 00:00:00 TO MEDICARE) [code = [facility] Medicare IPPE (WELCOME TO MEDICARE)] Future [...] [facility] Test 00:00:00 2) [code = [facility] VACCINES (1 of 2)] Future Scheduled 2006 SHINGLES VACCINES ([address] [facility] Test 00:00:00 2) [code = [facility] VACCINES (1 of 2)] Future Scheduled 1975 [...] breast Medical C enter (procedure) [code = 828710330] Future Scheduled 1956 CT Colonography (combo) [facility] Test 00:00:00 [code = CT Colonography [facility] (combo)] Future Scheduled 1955 Screening for malignant [facility] Test 00:00:00 neoplasm of colon Medical Ce nter (procedure) [code = 850251833] Future Scheduled 1956 Screening for malignant [facility] Test 00:00:00 neoplasm of colon Medical Ce nter (procedure) [code = 788661970] Future Scheduled 1955 DXA SCAN [code = DXA [facility] Test 00:00:00 SCAN] [facility] Future Scheduled 1956 Screening for malignant [facility] Test 00:00:00 neoplasm of colon Medical Ce nter (procedure) [code = 382313774] Future Scheduled 1956 Screening for malignant [facility] Test 00:00:00 neoplasm of colon Medical Ce nter (procedure) [code = 160877945] Future Scheduled 1955 Sigmoidoscopy [code = [facility] Test 00:00:00 Sigmoidoscopy] [facility] Future Scheduled 1956 Screening for malignant [facility] Test 00:00:00 neoplasm of breast Medical C enter (procedure) [code = 833989286] Future Scheduled 1956 CT Colonography (combo) [facility] Test 00:00:00 [code = CT Colonography [facility] (combo)] Future Scheduled 1956 Screening for malignant [facility] Test 00:00:00 neoplasm of colon Medical Ce nter (procedure) [code = 367087607] Future Scheduled 1956 Screening for malignant [facility] Test 00:00:00 neoplasm of colon Medical Ce nter (procedure) [code = 377738766] Future Scheduled 1955 DXA SCAN [code = DXA [facility] Test 00:00:00 SCAN] [facility] Future Scheduled 1956 Screening for malignant [facility] Test 00:00:00 neoplasm of colon Medical Ce nter (procedure) [code = 952651719] Future Scheduled 1956 Screening for malignant [facility] Test 00:00:00 neoplasm of colon Medical Ce nter (procedure) [code = 086218631] Future Scheduled 1955 Sigmoidoscopy [code = [facility] Test 00:00:00 Sigmoidoscopy] [facility] Cent[facility] r Encounters Start End Encounter Admission Attending Care Care Encounter Source Date/Time Date/Time Type Type Clinicians Facility Department ID 2022-02-25 Outpatient [facility] [id number] Common 10:04:02 [facility] 2023-03-24 2023-03-24 Outpatient SFA SFA [id number] [place] 15:26:33 15:26:33 [id number] F Alonzo 2023-03-22 2023-03-22 [id number] [facility] 00[facility]00[facility]00 [facility] 2023-03-21 2023-03-21 Orders Ed [facility] [id number] 00:00:00 00:00:00 Only [facility] 2023-03-21 2023-03-21 [id number] 00:[facility]00 00:00[facility]00 [facility] 2023-03-21 2023-03-21 [facility] [id number] 00:00[facility]00 00:00:00 [facility] 2023-03-18 2023-03-18 Documentat George [facility] [id number] 00:00:00 00:00:00 suzette Carpio [facility] 2023-03-11 2023-03-11 Documentat Donavan [facility] [id number] 00:00:00 00:00:[address] [facility] 2023-03-10 2023-03-10 Office LUCIAN Gonzalez [facility] [id number] 10:00:00 11:00:00 Visit [facility] 2023-03-10 2023-03-10 Outpatient VERONIQUE DELGADO SLE [id number] [facility]ily 00:00:00 00:00:00 [facility] 2023-03-08 2023-03-08 Outpatient SFA SFA [id number] [place] 16:19:28 16:19:28 [id number] [place] 2022-12-22 2022-12-22 Outpatient SFA SFA [place] 09:20:05 09:20:05 [id number] [place] 2022-12-01 2022-12-01 Outpatient SFA SFA [place] 09:41:49 09:41:49 [id number] [place] 2022-11-18 2022-11-18 Outpatient SFA SFA [place] 16:40:54 16:40:54 [id number] [place] 2022-11-11 2022-11-11 Outpatient SFA SFA [place] 08:28:15 08:28:15 [place] 2022-11-02 2022-11-02 Outpatient SFA SFA [place] 09:34:36 09:34:36 [place] 2022-10-05 2022-10-05 Outpatient SFA SFA [place] 10:47:07 10:47:07 [place] 2022-09-20 2022-09-20 Outpatient SFA SFA [id number] [place] 13:28:34 13:28:34 [facility] 2022-09-09 2022-09-09 Outpatient SFA SFA [place] 13:45:17 13:45:17 [facility] 2022-09-08 2022-09-08 Outpatient SFA SFA [place] 17:20:04 17:20:04 [facility] 2022-08-25 2022-08-25 Outpatient SFA SFA [id number] [place] 10:39:31 10:39:31 [facility] 2022-08-19 2022-08-19 Outpatient SFA SFA [id number] [place] 09:39:44 09:39:44 [facility] 2022-08-17 2022-08-17 Outpatient SFA SFA [id number] [place] 15:23:19 15:23:19 [facility] Results Test Description Test Time Test Comments Results Result Comments Source ALPHA FETOPROTEIN (AFP), TUMOR MARKER 2023-04-21 17:52:44 Test Item Value Reference Range Interpretation Comme nts ALPHA-FETOPROTEIN (BEAKER) (test code = 1094) 91525.9 ng/mL <10.0 H Metalizer ID - ADMINOperator ID - ADMINCARCINOEMBRYONIC ANTIGEN (CEA)2023-04-21 17:50:11 Test Item Value Reference Range Interpretation Comments CARCINOEMBRYONIC ANTIGEN (BEAKER) 4.4 ng/mL 0.0-5.0 (test code = 685) Metalizer ID - ADMINHEPATIC FUNCTION [id number] 17:05:15 Test Item Value Reference Range Interpretation [...] (test code = 27 U/L 6-55 347) Metalizer ID - MMSpecimen moderately ictericBASIC METABOLIC [id number] 17:05:15 Test Item Value Reference Range Interpretation [...] is not as accur ate as Creatinine Svtea molly in predicting glom erular filtration rate . Estimated GFR is not appl icable for dialysis patien ts Metalizer ID - MMSpecimen moderately ictericPROTHROMBIN [id number] 16:53:01 Test Item Value Reference Range Interpretation [...] mechanical heart valves.CBC W/PLT COUNT & AUTO [id number] 16:47:14 Test Item Value Reference Range Interpretation [...] 0.00-1.00 PERCENT (BEAKER) (test code = 2801) [id number] 18:32:48Medical Cytology Report Case: [id number] Authorizing Provider: Rach Gonzalez MD Collected: 04/14/2023 01:32 PM Ordering Location: [facility] Abdominal Clinic Received: 04/18/2023 04:17 PM Pathologist: Laly Sung MD Specimen: Peritoneal Fluid PERITONEAL FLUID (CYTOSPINS): - NEGATIVE FOR MALIGNANCY Reactive mesothelial cells and mixed chronic inflammatory cells present Signing Pathologist Direct Phone Line: [phone] signed by Trev Sung MD on 04/19/2023 at 6:32 [id number] y.o. Fwith h/o Cancer (HCC), HCV, cirrhosisPERITONEAL FLUIDA. Peritoneal FluidReceived 8 ml yellow fluid; prepared 4 cytospins, not enough material for cell block. Performed.Satisfactoryylor [facility], Department of Pathology, [address] [place] [address], [facility], [facility] of [facility]ology, [address] [place] [address], [facility], Department of Pathology, [address] [place] [address], IKJCAPRGGOYGG METABOLIC [id number] 17:06:28 Test Item Value Reference Range Interpretation [...] for dialysis patien ts Specimen slightly ictericU/S, [id number] 16:42:00Send ascitic fluid for cell count and differential If Cr > 1.5, do not remove more than 3.5L of ascitic fluid. If > 3L removed, please administer 200 mL of albumin 25% (50 grams) IV x 1Labs to beordered:->Cell CountReason for Exam:->Ascites, cirrhosisYADI [facility]Name: [facility] : 1955 Sex: FFINAL REPORT Ultrasound guided paracentesis. Clinical History: Ascites. Sedation: None. Laborer Road: Freda Ewing PA-C Surface Lay Out Technician: None. Estimated Blood Loss: < 1 cc. [...] was achieved with 2% lidocaine, a 5 Icelandic one-step catheter was advanced into the peritoneal cavity under ultrasound guidance. After completion of drainage, the catheter was removed. There was no evidence of complication. Impression:Successful ultrasoundguided paracentesis. Signed: Jerry Villatoroeport Verified Date/Time: 04/14/2023 16:42:18 Reading Location: [address] Ultrasound Reading Room Electronically signed by: JERRY VILLATORO MD on 2022 04:42 PMBODY FLUID CELL COUNT WITH [id number] 16:12:21 Test Item Value Reference Range Interpretation [...] (BEAKER) Sterile Vial (test code = 2873) [id number] 12:35:46 Test Item Value Reference Range Interpretation Comments POC-CREATININ 0.9 mg/dL 0.6-1.3 : TESTED AT [facility] [address] (BEAKER) [facility], [address]: (test code = Metalizer/Techni al ID = [id number]) [id number] for Fall er, Tanisha POC-EGFR 70 Interpretation [...] patien ts CBC W/PLT COUNT & AUTO [id number] 11:36:05 Test Item Value Reference Range Interpretation [...] PERCENT (BEAKER) (test code = 2801) PROTHROMBIN [id number] 11:34:04 Test Item Value Reference Range Interpretation Comments PROTIME (BEAKER) (test code = 16.0 seconds 11.9-14.2 H 759) INR (BEAKER) (test code = 370) 1.31 <=5.90 RECOMMENDED COUMADIN/WARFARIN INR THERAPY RANGESSTANDARD DOSE: 2.0 - 3.0 Includes: PROPHYLAXIS for venous thrombosis, systemic embolization; TREATMENT for venous thrombosis and/or pulmonary embolus.HIGH RISK: Target INR is 2.5-3.5 for patients with mechanical heart valves.MR, ABDOMEN, [id number] 15:43:00 Unlisted Reason for Exam - Click Yes and Enter Reason Below->YesUnlisted Reason for Exam->cirrhosis, HCC 2.3 cm mass in November 2022 [facility] 1955 Sex: FFINAL [...] Rizoort Verified Date/Time: 04/08/2023 15:43:40 Reading Location: [facility] C013X Ortho Consult Reading Room CT, CHEST, WITH [id number] 00:02:00Unlisted Reason for Exam - Click Yes and Enter Reason Below->Yes Unlisted Reason for Exam->HCC, r.o mets [facility] : 1955 Sex: FFINAL REPORT CT of the Chest dated 04/06/2023 CLINICAL INFORMATION: Unlisted Reason forExamHCC, r.o mets Comment: Axial images of the chest were obtained from thoracic inlet to the upper abdomen with intravenous intravenous contrast. This exam was performed according to our departmental dose- optimization program, which includes automated exposure control, adjustment of the mA and/or kV according to patient size and/or use of interactive reconstruction technique. Both thyroid lobes are normal in appearance. Heart is in upper limits of normal in size. Great vessels are unremarkable. No adenopathy in the mediastinum or perihilar region. Trachea and mainstem bronchi are patent. A 7 mm and 10 mm nodules are seen in the left upper lobe. A 6 mm nodule is seen in the lingula. A 10 mm noduleis seen in the left lower lobe. A 5 mm nodule is seen in the right upper lobe. A 4 minute nodule is seen in the right lower lobe. The rest of the lungs are clear. No mass lesion or airspace disease is noted. Nonspecific interstitial pulmonary disease is seen in the peripheral of both lungs. No pleuraleffusion is seen. Visualized upper abdomen demonstrates cirrhotic liver with splenomegaly. Small amount of ascites is seen in the upper abdomen. There is recannulization periumbilical vein. Paraesophageal varices is present. Diverticular disease is seen in the large bowel. Impression: 1. Nodular lesions in both lungs. May represent infectious or metastatic disease.2. Cirrhosis with splenomegaly and portal hypertension.3. Small ascites. Signed: [facility] Verified Date/Time: 04/07/2023 00:02:47 Liver Fibrosis, FibroTest- ActiTest [id number] 12:21:57 Test Item Value Reference Interpretation Comments Range Fibrosis Score 0.96 (test code = 9988299) Fibrosis Stage F4 (test code = 8455005) FIBROSIS SEE BELOW severe fibrosi s Fibro [...] Necroinflammat A1-A2 Activity Grade (test code = 80246-6) NECROINFLAMMAT SEE BELOW minimal acti vity INTERP [...] (test code = syndrome or hem olysis, 1161346) check non conju gated bilirubin. Chec k if haemolysis as bilirubin is hi gh and haptoglobin low . GGT (test code = 34 U/L 3-65 Suspicion o f Gilbert 8507894) syndrome or hem olysis, check non conju gated bilirubin. ALT (SGPT) (test 35 U/L 6-29 H code = 3129464) ALPHA 2 327 mg/dL 106-279 H MACROGLOBULIN (QUEST) (test code = 0278691) Haptoglobin (test <8 43-212 L Check if h aemolysis as code = 8049912) bilirubin is high and haptoglobin low . Apolipoprotein A-1 97 mg/dL 101-198 L (test code = 6796622) NECROINFLAM ACT 0.38 SCORE (QUEST) (test code = 0986880) REFERENCE ID [id number] (QUEST) (test code = 2736843) FOOTNOTE (QUEST) SEE BELOW The reliab ility of (test code = results is depe ndent 6005024) on compliance w ith the preanalytical a nd analytical cond itions recommended by Enhan[employer]. The tests have to b e deferred for: a cute hemolysis, acut e hepatitis, acut e inflammation, e xtra hepatic cholest asis. The advice of a specialist shou ld be sought for interpretation in chronic [...] perf ormance characteristics have been determined by [facility]. It has not been cleared or approvedby the U.S. Food and Drug Administration. Performance characteristics referto the davion lytical performance of the test. Quest, [facility], th e associated logo , [facility] te and allassociated Q uest Diagnostics mar ks are the registered trademarks of [employer] s. All third alliance party mar ks - (R) and (TM) - are the property of theirrespective owners. (C) 200 0-2013 [facility] cs Incorporated. A ll rightsreserved. WILVER (test code = Performing Lab WILVER) EZ [facility] [address] [place] [address] Joe Rodriguez MD, PhD, SCOTT Lab Interpretation Abnormal (test code = 82924-1) [facility] Fibrosis, FibroTest-ActiTest [id number] 12:21:57 Test Item Value Reference Interpretation Comments Range Fibrosis Score 0.96 (test code = 8277969) Fibrosis Stage F4 (test code = 2084427) FIBROSIS SEE BELOW severe fibrosi s Fibro [...] Necroinflammat A1-A2 Activity Grade (test code = 76087-9) NECROINFLAMMAT SEE BELOW minimal acti vity INTERP [...] (test 35 U/L 6-29 H code = 6029356) ALPHA 2 327 mg/dL 106-279 H MACROGLOBULIN (QUEST) (test code = 2895983) Haptoglobin (test <8 43-212 L Check if h aemolysis as code = 6371528) bilirubin is high and haptoglobin low . Apolipoprotein A-1 97 mg/dL 101-198 L (test code = 0560795) NECROINFLAM ACT 0.38 SCORE (QUEST) (test code = 4208932) REFERENCE ID [id number] (QUEST) (test code = 4449859) FOOTNOTE (QUEST) SEE BELOW The reliab ility of (test code = results is depe ndent 2898944) on compliance w ith the preanalytical a [...] perf ormance characteristics have been determined by [facility]. It has not been cleared or approvedby the U.S. Food and Drug Administration. Performance characteristics referto the davion lytical performance of the test. Quest, Qu [facility], th e associated logo , [facility] te and allassociated Q uest Diagnostics mar ks are the registered trademarks of [employer] s. All third alliance party mar ks - (R) and (TM) - are the property of theirrespective owners. (C) 200 [employer]. A ll rightsreserved. WILVER (test code = Performing Lab WILVER) EZ [facility] [address] [address] [place] [address] Joe Rodriguez MD, PhD, SCOTT Lab Interpretation Abnormal (test code = 65554-0) [facility] PCR, [id number] 05:44:38 Test Item Value Reference Range Interpretation Comments HCV NUMERIC RESULT (BEAKER) 5550607 IU/mL <15 H (test code = 2700) ALPHA FETOPROTEIN (AFP), TUMOR [id number] 14:56:57 Test Item Value Reference Range Interpretation Comments ALPHA-FETOPROTEIN (BEAKER) (test 9109.5 ng/mL <10.0 H code = 1094) Metalizer ID - ADMINOperator ID - ADMINHEPATITIS B CORE ANTIBODY, [id number] 14:52:32 Test Item Value Reference Range Interpretation Comments HEPATITIS B CORE TOTAL ANTIBODY Nonreactive Nonreactive (BEAKER) (test code = 497) Metalizer ID - ADMINHIV-1 ANTIGEN WITH HIV-1/2 [id number] 14:52:32 Test Item Value Reference Range Interpretation Comments HIV-1 ANTIGEN WITH HIV 1\T\2 Nonreactive Nonreactive ANTIBODY (2) (BEAKER) (test code = 2586) Metalizer ID - ADMINHEPATITIS A ANTIBODY, [id number] 14:52:32 Test Item Value Reference Range Interpretation Comments HEPATITIS A IGG ANTIBODY (BEAKER) Nonreactive Nonreactive (test code = 2797) Metalizer ID - ADMINCARCINOEMBRYONIC ANTIGEN (CEA)2023-03-10 14:52:26 Test Item Value Reference Range Interpretation Comments CARCINOEMBRYONIC ANTIGEN (BEAKER) 4.1 ng/mL 0.0-5.0 (test code = 685) Metalizer ID - ADMINBASIC METABOLIC [id number] 14:07:03 Test Item Value Reference Range Interpretation [...] not appl icable for dialysis patien ts Metalizer ID - ADMINSpecimen slightly ictericHEPATIC FUNCTION [id number] 14:07:03 Test Item Value Reference Range Interpretation [...] (test code = 39 U/L 6-55 347) Metalizer ID - ADMINSpecimen slightly ictericPROTHROMBIN [id number] 13:25:20 Test Item Value Reference Range Interpretation [...] mechanical heart valves.CBC W/PLT COUNT & AUTO [id number] 13:17:55 Test Item Value Reference Range Interpretation [...] (BEAKER) (test code = 2801) HEPATITIS C [id number] 13:15:29 Test Item Value Reference Range Interpretation Comments HEPATITIS C GENOTYPE 3 Assay methodology is (test code = 14369) real-micheal e PCR amplification of the 5'UTR an dNS5b regions of the HCV lisa me utilizing the [employer] Real Time HCVGenotype II assay and Holm HCV Lisa type Plus assay. Possible genotypes include 1a, 1b, 2, 3, 4, 5, and 6. UNLESS O THERWISE INDICATED, ALL TESTING PERFORMED [facility] [address] [place] [address] LABORATOR Y DIRECTOR: JORGE CONDE M.D. CLIA NUMBER [id number] CAP ACCREDITATION N O. [id number] AFP, TUMOR [id number] 09:35:09 Test Item Value Reference Range Interpretation Comments AFP, TUMOR MARKER 23315.00 NG/ML See_Comment H [Automa murtaza message] (test code = The system Return Pathic h 10387) generated this result transmitted ref erence range: <=8.30. The reference range was not used to int erpret this result as normal/abnormal . DAVION (ANTI-NUCLEAR AB) WITH REFLEX [id number] 00:57:23 Test Item Value Reference Range Interpretation Comments ANTI-NUCLEAR POSITIVE NEGATIVE A ANTIBODIES (test code = 3506) DAVION PATTERN SEE BELOW (REPORTED TITER) (test code = 46342) HOMOGENEOUS (test 1:320 TITER NEGATIVE H code = 67489) SPECKLED (test NEGATIVE TITER NEGATIVE code = 813359) DENSE FINE NEGATIVE TITER NEGATIVE SPECKLED (test code = 20546) CENTROMERE (test NEGATIVE TITER NEGATIVE code = 616673) COARSE SPECKLED NEGATIVE TITER NEGATIVE (test code = 255375) DISCRETE NUCLEAR NEGATIVE TITER NEGATIVE DOTS (test code = 363986) NUCLEOLAR (test NEGATIVE TITER NEGATIVE code = 241080) NUCLEAR MEMBRANE NEGATIVE TITER NEGATIVE (test code = 759257) CYTO. RETICULAR NEGATIVE NEGATIVE (REUBEN) (test code = 707792) COMMENTS (test NONE code = 943287) METHOD (test code (NOTE) NOTE: EFF ECTIVE = 72736) 06/21/2022, MET HOD IS TRANSITIONED TO THE INOVADIAGNOSTIC S [facility]. THE METHOD INCLUDES A SCREENTHRESHOLD OF 1:80, DIGITIZED AND COMPUTER ALGORITHM-NOLBERTO TEDINTE RPRETATION OF T ITERS AND DIGITAL PAT TERNS, AND HEp-2 CELLL INE SUBSTRATE. FINESSE TIONAL UNUSUAL PATTERN S WILL BE GIVEN ASCOMM ENTS. FOR MORE INFORM ATION, SEE [email or web address] sting [id number] 06:51:48 Test Item Value Reference Range Interpretation Comments FERRITIN (test code = 2075) 333 NG/ML 13-200 H VITAMIN B 12 AND FOLIC [id number] 06:51:48 Test Item Value Reference Range Interpretation [...] UNLESS O THERWISE INDICATED, ALL TESTING PERFORMED [facility] [employer] [address] [place] [address] 41 4 LABORATORY DIRE CTOR: JORGE CONDE M.D. CLIA NUMBER [id number] [place] [id number] HEPATITIS PANEL, [id number] 05:14:35 Test Item Value Reference Range Interpretation Comments HEPATITIS A IgM (test NON-REACTIVE NON-REACTIVE code = 75473) HEPATITIS B CORE IgM NON-REACTIVE NON-REACTIVE (test code = 4644) HEPATITIS B SURF AG NON-REACTIVE NON-REACTIVE (test code = 2739) HEPATITIS C ANTIBODY REACTIVE NON-REACTIVE A (test code = 4675) INTERPRETATION (NOTE) Hepatitis A HEPATITIS A: (test serology shows no code = 2552) evidence of acu te hepatitis A. INTERPRETATION (NOTE) Hepatitis B HEPATITIS B: (test serology shows no code = 87256) evidence of ac [place] hepatitis B and no indication of exposure to hepatitis B vir us in the previous si xto eight months. INTERPRETATION (NOTE) Hepatitis C HEPATITIS C: (test serology is code = 90435) consistent wit h exposure to hepatitis Cviru s. The CDC recomme nds performing a supplemental confirmatory te ston initial positiv e hepatitis C ant ibody tests. HCV PCR quantitativecan be used to confirm these results o n a new sample (See MMWR, 2003;52 R R-3). [id number] 04:48:58 Test Item Value Reference Range Interpretation Comments GGT (test code = 2216) 63 U/L <40 H [id number] 04:48:58 Test Item Value Reference Range Interpretation Comments TRANSFERRIN (test code = 4936) 210 MG/DL 200-360 IRON BINDING CAPACITY AND IRON AND % [id number] 04:48:29 Test Item Value Reference Range Interpretation Comments IRON, SERUM (test code = 2222) 117 UG/DL 37-145 UNSATURATED IBC (test code = 02174) 141 UG/DL 112-347 CALC TOTAL IBC (test code = 2077) 258 UG/DL 250-450 CALC % IRON SAT (test code = 2079) 45 % 20-50 HEMOGLOBIN [id number] 11:45:56 Test Item Value Reference Range Interpretation Comments HEMOGLOBIN A1c (test code = 95327) 5.0 % 4.2-5.6 LIPID [id number] 07:24:18 Test Item Value Reference Range Interpretation [...] MOREINFORMATION , SEE CLIENT ANNOUNCE MENT AT [email or web address] RISK RATIO LDL/HDL 1.70 RATIO <3.22 (test code = 2237) COMPREHENSIVE METABOLIC [id number] 07:24:18 Test Item Value Reference Range Interpretation Comments GLUCOSE (test code = 84 MG/DL 70-99 2216) BUN (test code = 11 MG/DL 8-23 2207) CREATININE (test 0.55 MG/DL 0.60-1.30 L code = 2214) eGFR (2020 CKD-EPI) 101 >60 (test code = 18230) ML/MIN/1.73 CALC BUN/CREAT (test 20 RATIO 6-28 code = 2235) SODIUM (test code = 142 MEQ/L 652-658 6954) POTASSIUM (test code 3.8 MEQ/L 3.5-5.4 = [...] [facility] [place] [address] [place] [id number] [place] [address] ITZEL DIRECTOR: JORGE MCGRATH M.D. CLIA NUMBER [id number] CAP ACCREDITATION N O. [id number]
[2023-05-02] MEDS ORDERED: NA CHLORIDE 0.9% 1,000 ML with FOLIC ACID 1 MG, THIAMINE HCL 100 MG, MULTIVITAMINS INJ ... IV SCH ×4 (15:30)
[2023-05-02] MEDS ORDERED: CEFTRIAXONE 1000 MG/VIAL ONE (15:35)
[2023-05-02] MEDS ORDERED: FAMOTIDINE 20 MG/2 ML VIAL IV ONE (15:35)
[2023-05-02 15:44] LABS: SARS-CoV-2 Antigen Rapid Res Negative (Negative)
--- NOTE | 2023-05-02 15:50 | RAD REPORT ---
EXAM DESCRIPTION: CT - Head C Spine Cap Ricky Lorenz - 05/02/2023 3:00 pm CLINICAL HISTORY: Dizziness;Pain;Weakness COMPARISON: No comparisons TECHNIQUE: Head and cervical spine CT images were obtained without IV contrast. Chest, abdomen, and pelvis CT images were obtained following intravenous administration of 90 mL Isovue-300. Multiplanar reformats were generated and reviewed. All CT scans are performed using dose optimization technique as appropriate and may include automated exposure control or mA/KV adjustment according to patient size. FINDINGS: CT HEAD: No intracranial hemorrhage, mass effect, or edema. No evidence of acute territorial infarct. No midli ne shift or abnormal fluid collection. The ventricles are normal in caliber and configuration for age . Basal cisterns are patent. Mastoid aircells and paranasal sinuses are clear. No acute skull fractur e. CT CERVICAL SPINE: No acute cervical spine fracture or subluxation. Vertebral body heights are well maintained. Facet leah ints are normal in alignment. No hyperattenuating canal hematoma. Prevertebral and paraspinous soft t issues are unremarkable. CT CHEST: No pneumothorax, pulmonary contusion or pleural fluid collection. Mild interstitial prominence. No me diastinal hematoma and the aorta and pulmonary arteries are unremarkable. No chest will mass or abnor mal axillary finding. No displaced rib fracture or other significant bony finding. CT ABDOMEN/ PELVIS: No evidence of traumatic injury to solid abdominal viscera. Nodular contour of the liver. Re- cannuli zation of the umbilical vein. Gallbladder and biliary tree are unremarkable. No bowel injury. Long se gments of diffuse bowel wall thickening. Mesenteric edema. No free air or abnormal fat stranding. Mil q-jk-ljgaozfv free ascites. No urinary bladder abnormality. Superior endplate compression deformity at L1, with mild posterior cortex buckling, without high-grad e canal stenosis. Mild overall vertebral body height loss. Pronounced subcutaneous soft tissue edema along the flanks, anterior abdominal wall, and right more t sim left breast, and to lesser extent the left gluteal region. IMPRESSION: Stigmata of cirrhosis with [id number]-[id number]-[id number] ascites, and findings suggesting fluid overl oad. Please correlate clinically. Superior endplate compression deformity at L1, of indeterminate age.
[2023-05-02 16:08] LABS: Absolute Lymphocytes (CBC) 0.7 K/uL (0.7-4.9); Hematocrit 32.2 % (36.0-45.0); MCV 91.9 fL (80-100); MPV 8.3 fL (7.6-11.3)
[2023-05-02 16:12] LABS: Protime INR 1.48
[2023-05-02 16:26] LABS: Albumin 2.9 g/dL (3.4-5.0); Bilirubin Direct 1.6 mg/dL (0-0.2); Bilirubin Indirect, Calculated 2.3 mg/dL (0.2-0.8); Bilirubin Total 3.9 mg/dL (0.2-1.0); Magnesium 2.5 mg/dL (1.6-2.4); Potassium 4.5 mEq/L (3.5-5.1); Protein, Total 6.3 g/dL (6.4-8.2); Troponin High Sensitivity 11.2 pg/mL (<58.9)
[2023-05-02] MEDS ORDERED: LACTULOSE 20 GM/30 ML UCUP ONE ×2 (16:50→17:47)
--- NOTE | 2023-05-02 17:25 | EDPHYS ---
Physician Documentation [facility] Name: Edith Buck Age: 68 yrs Sex: Female : 1955 Arrival Date: 05/02/2023 Time: 14:35 Bed 5 Private MD: ED Physician Julian Rico HPI: 05/02 17:15 This 68 yrs old Female presents to ER via EMS with complaints of Altered sayra Mental Status. 17:15 The patient presents with confusion, decreased mental status, decreased responsiveness. sayra Onset: The symptoms/episode began/occurred 2 day(s) ago. Possible causes: alcohol, low blood sugar, seizure, sepsis. Associated signs and symptoms: Pertinent positives: abdominal pain, confusion. Current symptoms: In the emergency department the patient's symptoms are unchanged from the initial presentation, despite home interventions, despite EMS interventions. Patient's baseline: Neuro: alert and fully oriented. The patient has experienced similar episodes in the past, multiple times. Historical: - Allergies: 14:46 Amoxicillin; jl7 14:46 Codeine; jl7 14:46 PENICILLINS; jl7 - PMHx: 14:46 alcohol abuse; LIVER CA; cirrhosis of liver; jl7 - PSHx: 14:46 Ligation of fallopian tube; Tonsillectomy; Total abdominal hysterectomy; jl7 - Immunization history:: Adult Immunizations unknown. - Social history:: Smoking status: Patient denies any tobacco usage or history of. ROS: 17:18 Constitutional: Negative for fever, chills, and weight loss, Eyes: Negative for injury, sayra pain, redness, and discharge, ENT: Negative for injury, pain, and discharge, Neck: Negative for injury, pain, and swelling, Cardiovascular: Negative for chest pain, palpitations, and edema, Respiratory: Negative for shortness of breath, cough, wheezing, and pleuritic chest pain, Back: Negative for injury and pain, : Negative for injury, bleeding, discharge, and swelling, MS/Extremity: Negative for injury and deformity, Skin: Negative for injury, rash, and discoloration, Psych: Negative for depression, anxiety, suicide ideation, homicidal ideation, and hallucinations, Allergy/Immunology: Negative for hives, rash, and allergies, Endocrine: Negative for neck swelling, polydipsia, polyuria, polyphagia, and marked weight changes, Hematologic/Lymphatic: Negative for swollen nodes, abnormal bleeding, and unusual bruising. 17:18 Abdomen/GI: Positive for abdominal pain, abdominal distension, of the right upper quadrant, left upper quadrant, right lower quadrant and left lower quadrant. Exam: 17:18 Constitutional: This is a well developed, well nourished patient who is awake, alert, sayra and in no acute distress. Head/Face: Normocephalic, atraumatic. Eyes: Pupils equal round and reactive to light, extra-ocular motions intact. Lids and lashes normal. Conjunctiva and sclera are non-icteric and not injected. Cornea within normal limits. Periorbital areas with no swelling, redness, or edema. ENT: Nares patent. No nasal discharge, no septal abnormalities noted. Tympanic membranes are normal and external auditory canals are clear. Oropharynx with no redness, swelling, or masses, exudates, or evidence of obstruction, uvula midline. Mucous membranes moist. Neck: Trachea midline, no thyromegaly or masses palpated, and no cervical lymphadenopathy. Supple, full range of motion without nuchal rigidity, or vertebral point tenderness. No Meningismus. Chest/axilla: Normal chest wall appearance and motion. Nontender with no deformity. No lesions are appreciated. Cardiovascular: Regular rate and rhythm with a normal S1 and S2. No gallops, murmurs, or rubs. Normal PMI, no JVD. No pulse deficits. Respiratory: Lungs have equal breath sounds bilaterally, clear to auscultation and percussion. No rales, rhonchi or wheezes noted. No increased work of breathing, no retractions or nasal flaring. Back: No spinal tenderness. No costovertebral tenderness. Full range of motion. Female : Normal external genitalia. Skin: Warm, dry with normal turgor. Normal color with no rashes, no lesions, and no evidence of cellulitis. MS/ Extremity: Pulses equal, no cyanosis. Neurovascular intact. Full, normal range of motion. Psych: Awake, alert, with orientation to person, place and time. Behavior, mood, and affect are within normal limits. 17:18 ECG was reviewed by the Attending Physician. 17:18 Abdomen/GI: Inspection: distension, that is mild, Bowel sounds: active, Palpation: mild abdominal tenderness, in all quadrants, Liver: no appreciated palpable abnormalities, Hernia: not appreciated. Vital Signs: 14:44 BP 132 / 48; Pulse 98; Resp 15; Temp 98.4; Pulse Ox 99% ; jl7 15:42 BP 138 / 52; Pulse 93; Resp 20 S; Pulse Ox 100% on R/A; Pain 0/10; kc6 17:07 BP 125 / 49; Pulse 95; Resp 17 S; Pulse Ox 98% on R/A; kc6 18:40 BP 136 / 56; Pulse 93; Resp 19 S; Pulse Ox 98% on R/A; Pain 0/10; kc6 15:42 Pain Scale: Adult kc6 18:40 Pain Scale: Adult kc6 MDM: 14:47 Patient medically screened. sayra 17:21 Differential Diagnosis altered mental status, sepsis, flu. Differential Diagnosis: CVA, sayra electrolyte abnormality, alcohol intoxication, hypoglycemia, intracranial bleed, seizure, TIA, UTI, volume depletion. Differential diagnosis: bowel obstruction, diverticulitis, gastritis, gastroesophageal reflux disease, Mesenteric ischemia or infarction, non-specific abd pain, pancreatitis, Peptic Ulcer Disease, Peritonitis, Ureterolithiasis, urinary tract infection. Data reviewed: vital signs, nurses notes, EMS record, lab test result(s), EKG, radiologic studies, CT scan, plain films. Consideration of Admission/Observation Escalation of care including admission/observation considered. I considered the following discharge prescriptions or medication management in the emergency department Medications were administered in the Emergency Department. See MAR. Test considered but Not performed: Ultrasound NO ABD USG. 05/02 14:47 Order name: Basic Metabolic Panel; Complete Time: 16:28 [facility] 05/02 14:47 Order name: CBC with Diff; Complete Time: 16:28 [facility] 05/02 14:47 Order name: LFT's; Complete Time: 16:28 [facility] 05/02 14:47 Order name: Magnesium; Complete Time: 16:28 [facility] 05/02 14:47 Order name: NT PRO-BNP; Complete Time: 16:28 [facility] 05/02 14:47 Order name: PT-INR; Complete Time: 16:28 [facility] 05/02 14:47 Order name: Troponin HS; Complete Time: 16:28 [facility] 05/02 14:47 Order name: SARS RAPID; Complete Time: 16:11 [facility] 05/02 14:47 Order name: Flu; Complete Time: 16:11 [facility] 05/02 14:47 Order name: Lipase; Complete Time: 16:28 [facility] 05/02 14:47 Order name: AMMONIA; Complete Time: 16:28 [facility] 05/02 14:47 Order name: XRAY Chest (1 view); Complete Time: 17:45 [facility] 05/02 14:47 Order name: CT Traumagram (Head C Spine CAP wo con); Complete Time: 16:11 [facility] 05/02 14:47 Order name: EKG; Complete Time: 14:48 [facility] 05/02 14:47 Order name: Cardiac monitoring; Complete Time: 15:24 [facility] 05/02 14:47 Order name: EKG - Nurse/Tech; Complete Time: 15:24 [facility] 05/02 14:47 Order name: IV Saline Lock; Complete Time: 15:24 [facility] 05/02 14:47 Order name: Labs collected and sent; Complete Time: 15:24 [facility] 05/02 14:47 Order name: O2 Per Protocol; Complete Time: 15:01 [facility] 05/02 14:47 Order name: O2 Sat Monitoring; Complete Time: 15:01 [facility] 05/02 15:41 Order name: Labs - recollect needed: recollect all tubes.; Complete Time: 15:59 bd EC:18 Rate is 96 beats/min. Rhythm is regular. QRS [place] is Normal. [place] interval is prolonged sayra at 212 msec. QRS interval is normal. QT interval is normal. No Q waves. T waves are Normal. No ST changes noted. Clinical impression: NSR w/ Non-specific ST/T Changes and No evidence of ischemia. Interpreted by me. Reviewed by me. Administered Medications: 15:37 Drug: Rocephin IV 1 grams Route: IV; Rate: per protocol; Site: right hand; 6 16:32 Follow up: Response: No adverse reaction; IV Status: Completed infusion; IV Intake: 16umde2 15:37 Drug: Banana Bag - (NS 0.9% IV 1000 ml, foLIC Acid IVPB 1 mg, Thiamine IV 100 mg, kc6 Multivitamin IV 1 amp) Route: IV; Rate: 125 ml/hr; Site: right hand; 18:40 Follow up: Response: No adverse reaction; IV Status: Infusion continued upon transfer; kc6 IV Intake: 1000ml 15:37 Drug: Famotidine IVP 20 mg Route: IVP; Site: right hand; kc6 16:32 Follow up: Response: No adverse reaction kc6 16:48 Drug: Lactulose PO 30 grams Volume: 45 ml; Route: PO; kc6 18:40 Follow up: Response: No adverse reaction kc6 17:43 Drug: Lactulose PO 30 grams Volume: 45 ml; Route: PO; kc6 18:40 Follow up: Response: No adverse reaction kc6 Disposition Summary: 05/02/23 17:24 Transfer Ordered Transfer Location: [facility] sayra Reason: Higher level of care sayra Condition: Fair sayra Problem: new sayra Symptoms: are unchanged sayra Accepting Physician: TO [facility](05/02/23 19:05) kc6 Diagnosis - Alcoholic cirrhosis of liver with ascites sayra - Altered mental status, unspecified sayra - Encephalopathy, unspecified - HEPATIC sayra - Malignant neoplasm of liver, not specified as primary or secondary sayra - Anemia in other chronic diseases classified elsewhere sayra Forms: - Medication Reconciliation Form sayra - SBAR form sayra Signatures: Dispatcher [employer] EDCaitlin Rodriguez Corey, MD MD cha Leal, Jahala RN RN jl7 Kimmy Camarena RN RN kc6 Corrections: (The following items were deleted from the chart) 17:25 17:24 TO [facility] sayra sayra 19:05 17:25 TO [facility] sayra kc6
--- NOTE | 2023-05-02 17:25 | ER ---
Nurse's Notes [facility] Name: Edith Buck Age: 68 yrs Sex: Female : 1955 Arrival Date: 05/02/2023 Time: 14:35 Bed 5 Private MD: Diagnosis: Alcoholic cirrhosis of liver with ascites;Altered mental status, unspecified;Encephalopathy, unspecified-HEPATIC;Malignant neoplasm of liver, not specified as primary or secondary;Anemia in other chronic diseases classified elsewhere Presentation: 05/02 14:44 Chief complaint: EMS states: Toned out for altered mental status, hx of cirrhosis, jl7 paracentesis on Tuesday, last normal yesterday. Coronavirus screen: At this time, the client does not indicate any symptoms associated with coronavirus-19. Ebola Screen: No symptoms or risks identified at this time. Initial Sepsis Screen: Does the patient meet any 2 criteria? No. Patient's initial sepsis screen is negative. Does the patient have a suspected source of infection? No. Patient's initial sepsis screen is negative. Risk Assessment: Do you want to hurt yourself or someone else? Patient reports no desire to harm self or others. Onset of symptoms is unknown. Care prior to arrival: IV initiated. 20 GA, in the right hand, Glucose check: 65. 14:44 Method Of Arrival: EMS: [facility] jl7 14:44 Acuity: FLORA 2 jl7 Historical: - Allergies: 14:46 Amoxicillin; jl7 14:46 Codeine; jl7 14:46 PENICILLINS; jl7 - PMHx: 14:46 alcohol abuse; LIVER CA; cirrhosis of liver; jl7 - PSHx: 14:46 Ligation of fallopian tube; Tonsillectomy; Total abdominal hysterectomy; jl7 - Immunization history:: Adult Immunizations unknown. - Social history:: Smoking status: Patient denies any tobacco usage or history of. Screenin:00 [facility] ED Fall Risk Assessment (Adult) History of falling in the last 3 months, kc6 including since admission No falls in past 3 months (0 pts) Confusion or Disorientation Yes (5 pts) Intoxicated or Sedated No (0 pts) Impaired Gait No (0 pts) Mobility Assist Device Used No (0 pt) Altered Elimination No (0 pt) Score/Fall Risk Level 0 - 2 = Low Risk Oriented to surroundings, Maintained a safe environment, Educated pt \T\ family on fall prevention, incl call for assistance when getting out of bed, Assessed \T\ reinforced patient's understanding of fall precautions, Hourly rounding (assess needs \T\ fall precautionary measures) done. Abuse screen: Denies threats or abuse. Denies injuries from another. Nutritional screening: No deficits noted. Tuberculosis screening: No symptoms or risk factors identified. Assessment: 15:00 General: Appears in no apparent distress. comfortable, Behavior is calm, cooperative, kc6 appropriate for age. Pain: Denies pain. Neuro: Hardin Agitation-Sedation Scale (RASS): 0 - Alert and Calm Level of Consciousness is awake, alert, obeys commands, Oriented to person, Appropriate for age. Cardiovascular: Capillary refill < 3 seconds. Respiratory: Airway is patent Trachea midline Respiratory effort is even, unlabored, Respiratory pattern is regular, symmetrical. GI: Abdomen is round non-distended, previous paracentesis dressing located to the RLQ Bowel sounds present X 4 quads. Abd is soft and non tender X 4 quads. : No signs and/or symptoms were reported regarding the genitourinary system. EENT: No signs and/or symptoms were reported regarding the EENT system. Derm: No signs and/or symptoms reported regarding the dermatologic system. Skin is intact, Skin is pink, warm \T\ dry. Musculoskeletal: No signs and/or symptoms reported regarding the musculoskeletal system. Circulation, motion, and sensation intact. Capillary refill < 3 seconds, Range of motion: intact in all extremities. 16:00 Reassessment: Patient appears in no apparent distress at this time. No changes from kc6 previously documented assessment. Patient and/or family updated on plan of care and expected duration. Pain level reassessed. 17:00 Reassessment: Patient appears in no apparent distress at this time. No changes from kc6 previously documented assessment. Patient and/or family updated on plan of care and expected duration. Pain level reassessed. 18:00 Reassessment: Patient appears in no apparent distress at this time. No changes from kc6 previously documented assessment. Patient and/or family updated on plan of care and expected duration. Pain level reassessed. Vital Signs: 14:44 BP 132 / 48; Pulse 98; Resp 15; Temp 98.4; Pulse Ox 99% ; jl7 15:42 BP 138 / 52; Pulse 93; Resp 20 S; Pulse Ox 100% on R/A; Pain 0/10; kc6 17:07 BP 125 / 49; Pulse 95; Resp 17 S; Pulse Ox 98% on R/A; kc6 18:40 BP 136 / 56; Pulse 93; Resp 19 S; Pulse Ox 98% on R/A; Pain 0/10; kc6 15:42 Pain Scale: Adult kc6 18:40 Pain Scale: Adult kc6 ED Course: 14:44 Patient arrived in ED. jl7 14:44 Anay Howell MD is Attending Physician. sp3 14:44 Julian Rico MD is Attending Physician. sayra 14:45 Arm band placed on. kc6 14:46 Triage completed. jl7 15:00 Patient has correct armband on for positive identification. Bed in low position. Call kc6 light in reach. Side rails up X2. Adult w/ patient. 15:01 Kimmy Camarena, RN is Primary Nurse. kc6 15:02 CT Traumagram (Head C Spine CAP wo con) In Process Unspecified. EDMS 15:24 Maintain EMS IV. Dressing intact. Good blood return noted. Site clean \T\ dry. Gauge \T\ antony 6 site: 20G R Hand. 16:05 Inserted saline lock: 20 gauge in right antecubital area, using aseptic technique. kc6 Blood collected. 16:50 XRAY Chest (1 view) In Process Unspecified. EDMS 18:39 No provider procedures requiring assistance completed. Patient transferred, IV remains kc6 in place. Administered Medications: 15:37 Drug: Rocephin IV 1 grams Route: IV; Rate: per protocol; Site: right hand; kc6 16:32 Follow up: Response: No adverse reaction; IV Status: Completed infusion; IV Intake: 60sglq8 15:37 Drug: Banana Bag - (NS 0.9% IV 1000 ml, foLIC Acid IVPB 1 mg, Thiamine IV 100 mg, kc6 Multivitamin IV 1 amp) Route: IV; Rate: 125 ml/hr; Site: right hand; 18:40 Follow up: Response: No adverse reaction; IV Status: Infusion continued upon transfer; kc6 IV Intake: 1000ml 15:37 Drug: Famotidine IVP 20 mg Route: IVP; Site: right hand; kc6 16:32 Follow up: Response: No adverse reaction kc6 16:48 Drug: Lactulose PO 30 grams Volume: 45 ml; Route: PO; kc6 18:40 Follow up: Response: No adverse reaction kc6 17:43 Drug: Lactulose PO 30 grams Volume: 45 ml; Route: PO; kc6 18:40 Follow up: Response: No adverse reaction kc6 Medication: 18:40 VIS not applicable for this client. kc6 Intake: 16:32 IV: 10ml; Total: 10ml. kc6 18:40 IV: 1000ml; Total: 1010ml. kc6 Outcome: 17:24 ER care complete, transfer ordered by . sayra 18:39 Transferred by ground EMS to [facility], Transfer form completed. kc6 Note: report called to SALAS Orellana 18:39 Condition: stable 18:39 Instructed on the need for admit. 19:05 Patient left the ED. kc6 Signatures: Dispatcher [employer] Julian Dimas MD MD cha Leal, Jahala RN RN jl7 Anay Howell MD MD sp3 Kimmy Camarena RN RN kc6
--- NOTE | 2023-05-02 17:35 | RAD REPORT ---
EXAM DESCRIPTION: [facility]05/02/2023 4:49 pm CLINICAL HISTORY: ABDOMINAL DISTENTION COMPARISON: Chest Single View dated 04/30/2023; Chest Single View dated 03/18/2023; CHEST PA AND LAT 2 VIEW dated 07/18/2008 TECHNIQUE: Portable AP view of the chest. FINDINGS: The lungs show no focal consolidation. Central interstitial prominence. No pneumothorax o r effusion. The cardiomediastinal contours are unremarkable. IMPRESSION: Central interstitial prominence which may relate to pulmonary fibrosis or mild edema. No other acute cardiopulmonary process.
[2023-05-02 19:48] VITALS: TEMP 98.4
[2023-05-02 19:51] VITALS: O2SAT 98
[2023-05-02 19:54] VITALS: BP 136/56
--- NOTE | 2023-05-04 19:15 | EKG ---
Test Date: 2023-05-02 Test Time: 15:10:04 Flower Maker: ALEXEI MEASUREMENT RESULTS: Intervals: Rate: 96 [place]: 212 QRSD: 80 QT: 352 QTc: 444 [place]: P: 103 [place]: 212 QRS: 6 T: 84 INTERPRETIVE STATEMENTS: Sinus rhythm with 1st degree AV block Low voltage QRS Borderline ECG Compared to ECG 04/30/2023 00:43:36 Low QRS voltage now present Myocardial infarct finding no longer present Electronically Signed On 05-04-23 19:11:12 CDT by Chao Burris
== END 2023-05-02 19:05 | disposition short-term general hospital (02) ==
LOC: ER 14:35
DX: K70.31 Alcoholic cirrhosis of liver with ascites (principal); K76.82 Hepatic encephalopathy; C22.9 Malignant neoplasm of liver, not specified as primary or secondary; D63.8 Anemia in other chronic diseases classified elsewhere; Z20.822 Contact with and (suspected) exposure to COVID-19; Z88.0 Allergy status to penicillin; Z88.1 Allergy status to other antibiotic agents; Z88.5 Allergy status to narcotic agent
CPT/HCPCS: 96365; 96368; 93005; 85025; 80048; 36415; 82140; 83735; 85610; 80076; 84484; 83690; 83880; 87804 ×2; 70450; 71250; 72125; 71045; 96375; 99285; 96366; 87811; J3411; J7030; J0696

== ENCOUNTER 2023-05-23 04:58 | Emergency (ER) | payer OTHER ==
--- OUTSIDE RECORDS SUMMARY | 2023-05-23 05:03 | XMS REPORT | Continuity of Care Document ---
:1955 Author Organization [facility] t Address [address] [facility] [address] [place] [address] Care Team Providers Name Role Phone Records, [facility] - Other - Primary Care Physician Thais vailable MIKI JARAMILLO Attending Clinician Unavailable RACH GONZALEZ Attending Clinician Unavailable CASSIE ABRAHAM Attending Clinician Unavailable MACARENA JACKSON Attending Clinician Unavailable Macarena Perez Attending Clinician [phone] Carlos MARINA, Marion Attending Clinician Unavailable Balaji Vazquez Attending Clinician Unavailable Donavan MARINA, Michelle Burris Attending Clinician Unavailable Rach Gonzalez MD Attending Clinician AMIE LINN Admitting Clinician Unavailable Payers Payer Name Policy Type [...] [facility] [place] [facility] [place] [employer] Active 2022-[address] [facility] adverse 00:00: Medical reaction [place] [facility] Active [facility] adverse 00:00: Medical reaction [place] Family History Family Member Diagnosis Comments Start Date Stop Date Source Natural mother Heart disease [facility] Natural sister Breast cancer [facility] Natural brother Liver disease [facility] Natural father Heart failure [facility] Social History Social Habit Start Date Stop Date Quantity Comments Source Tobacco use and 2023-03-10 2023-03-10 [address] [facility] exposure [facility]00:00 non-user [facility] Center Alcohol intake 2023-03-10 2023-03-10 [facility] (finding) Sex Ass[birth year] [facility] amanda 00:00:00 00:00:00 [facility] Center Smoking Status Start Date Stop Date Source Never smoked tobacco [facility] Medications Ordered Filled Start Stop Current Ordering Indication Dosage Frequency Signature Comments Components Source Medication Medication Date Date Medication? Clinician (SIG) Name Name Ginger Yes 20meq QD Take [address] [facility] M20 20 mEq 4-24 tablet (20 [place] es tablet 00:00: mEq total) Medic al 00 by mouth Center in the morning. hydroCHLORO Yes 12.5mg QD Take [address] thiazide 4-24 tablet [facility] (HYDRODIURI 00:00: (12.5 mg Me dical L) 12.5 MG 00 total) by Cent er tablet mouth in the morning. Ginger Yes 20meq QD Take [address] M20 20 mEq 4-24 tablet (20 [place] tablet 00:00: mEq total) Medic al 00 by mouth Center in the morning. amLODIPine 0 Yes 10mg QD Take 1 [facility] (NORVASC) 4-11 tablet (10 Luke s 10 MG 00:00: mg total) Medical tablet 00 by mouth Center in the morning. amLODIPine 2022-0 Yes 10mg QD Take 1 [facility] (NORVASC) 4-11 tablet (10 Luke s 10 MG 00:00: mg total) Medical tablet 00 by mouth Center in the morning. pantoprazol 2022-0 Yes Take by [facility] 3-13 [facility]. [facility] (PROTONIX) 00:00: Medical 40 MG 00 Center tablet pantoprazol 2022-0 Yes Take by [facility] 3-13 [facility]. [facility] (PROTONIX) 00:00: Medical 40 MG Center tablet Vital Signs Vital Name Observation Time Observation Value Comments Source Systolic blood 2023-03-10 10:20:00 149 mm[Hg] [facility] Diastolic blood 2023-03-10 10:20:00 76 mm[Hg] [facility] Heart rate 2023-03-10 10:20:00 86 /min [facility] Body temperature 2023-03-10 10:20:00 36.78 Maryuri [facility] Respiratory rate 2023-03-10 10:20:00 18 /min [facility] Body height 2023-03-10 10:20:00 162.6 cm [facility] Body weight 2023-03-10 10:20:00 71.033 kg [facility] BMI 2023-03-10 10:20:00 26.88 kg/m2 [facility] Oxygen saturation in 2023-03-10 10:20:00 95 /min [facility] Arterial blood by Medical Ce nter Pulse oximetry Procedures Procedure Date / Time Performing Clinician Source Performed LIVER FIBROSIS, 2023-03-10 12:15:00 Rach Gonzalez [facility] FIBROTEST-ACTITEST PANEL [facility] BASIC METABOLIC PANEL 2023-03-10 12:07:00 Rach Gonzalez [facility] HEPATIC FUNCTION PANEL 2023-03-10 12:07:00 Rach Gonzalez [facility] CBC W/PLT COUNT & AUTO 2023-03-10 12:07:00 Rach Gonzalez [facility] PROTHROMBIN TIME/INR 2023-03-10 12:07:00 Rach Gonzalez [facility] ALPHA FETOPROTEIN (AFP), 2023-03-10 12:07:00 Rach Gonzalez [facility] TUMOR MARKER [facility] HEPATITIS C GENOTYPE 2023-03-10 12:07:00 Rach Gonzalez [facility] HEPATITIS C PCR, 2023-03-10 12:07:00 Rach Gonzalez [facility] HC LAB HIV-1 AG W/HIV-1&2 2023-03-10 12:07:00 Rach Gonzalez [facility] AB [facility] HEPATITIS B CORE ANTIBODY, 2023-03-10 12:07:[address] [facility] TOTAL [facility] HEPATITIS A ANTIBODY, IGG 2023-03-10 12:07:00 Rach Gonzalez [facility] CARBOHYDRATE ANTIGEN 19-9 2023-03-10 12:07:00 Rach Gonzalez [facility] (CA 19-9) [facility] CARCINOEMBRYONIC ANTIGEN 2023-03-10 12:07:00 Rach Gonzalez [facility] (CEA) [facility] CBC W/PLT COUNT & AUTO 2023-03-10 12:07:[address] [facility] DIFFERENTIAL [facility] Plan of Care Planned Activity [...] [facility] Test 00:00:00 2) [code = SHINGLES [facility] VACCINES (1 of 2)] Future Scheduled 2006 SHINGLES VACCINES ([address] [facility] Test 00:00:00 2) [code = SHINGLES [facility] VACCINES (1 of 2)] Future Scheduled [...] breast Medical C enter (procedure) [code = 232099354] Future Scheduled 1956 CT Colonography (combo) [facility] Test 00:00:00 [code = CT Colonography [facility] (combo)] Future Scheduled 1956 Screening for malignant [facility] Test 00:00:00 neoplasm of colon Medical Ce nter (procedure) [code = 742495568] Future Scheduled 1956 Screening for malignant [facility] Test 00:00:00 neoplasm of colon Medical Ce nter (procedure) [code = 155502743] Future Scheduled 1955 DXA SCAN [code = DXA [facility] Test 00:00:00 SCAN] [facility] Future Scheduled 1956 Screening for malignant [facility] Test 00:00:00 neoplasm of colon Medical Ce nter (procedure) [code = 318166888] Future Scheduled 1956 Screening for malignant [facility] Test 00:00:00 neoplasm of colon Medical Ce nter (procedure) [code = 753553899] Future Scheduled 1955 Sigmoidoscopy [code = [facility] Test 00:00:00 Sigmoidoscopy] [facility] Future Scheduled 1956 Screening for malignant [facility] Test 00:00:00 neoplasm of breast Medical C enter (procedure) [code = 594783416] Future Scheduled 1956 CT Colonography (combo) [facility] Test 00:00:00 [code = CT Colonography [facility] (combo)] Future Scheduled 1956 Screening for malignant [facility] Test 00:00:00 neoplasm of colon Medical Ce nter (procedure) [code = 008067246] Future Scheduled 1956 Screening for malignant [facility] Test 00:00:00 neoplasm of colon Medical Ce nter (procedure) [code = 560341422] Future Scheduled 1955 DXA SCAN [code = DXA [facility] Test 00:00:00 SCAN] [facility] Future Scheduled 1956 Screening for malignant [facility] Test 00:00:00 neoplasm of colon Medical Ce nter (procedure) [code = 352768101] Future Scheduled 1956 Screening for malignant [facility] Test 00:00:00 neoplasm of colon Medical Ce nter (procedure) [code = 510057275] Future Scheduled 1955 Sigmoidoscopy [code = [facility] Test 00:00:00 Sigmoidoscopy] Medical Cente r Encounters Start End Encounter Admission Attending Care Care Encounter Source Date/Time Date/Time Type Type Clinicians Facility Department ID 2022-02-25 Outpatient [facility] [id number] Common 10:04:02 [facility] 2023-03-24 2023-03-24 Outpatient SFA SFA [id number] [place] 15:26:33 15:26:33 [id number] F Alonzo 2023-03-22 2023-03-[address] [facility] [id number] [facility] 00:00:00 [facility] 2023-03-21 2023-03-[address] [facility] [id number] 00:00:00 00:00:00 Only [facility] 2023-03-21 2023-03-21 [id number] [facility] 00[facility]00 [facility] 2023-03-21 2023-03-[address] [facility] [id number] 00:[facility]00 00:00:00 [facility] 2023-03-18 2023-03-[address] [facility] [id number] 00:00[facility] 00:00:[address] [facility] 2023-03-11 2023-03-[address] [facility] [id number] 00:00:00 00:00:00 suzette Martinez chrali Snyder [facility] 2023-03-10 2023-03-[address] [facility] [id number] 10:00:00 [facility] 2023-03-10 2023-03-10 Outpatient VERONIQUE DELGADO [facility] [id number] [facility] 00:00:00 00:00:00 RACH 2023-03-08 2023-03-08 Outpatient SFA SFA [place] 16:19:28 16:19:28 [id number] [facility] [place] 2022-12-22 2022-12-22 Outpatient SFA SFA [place] 09:20:05 09:20:05 [id number] [facility] [place] 2022-12-01 2022-12-01 Outpatient SFA SFA [place] 09:41:49 09:41:49 [id number] [facility] [place] 2022-11-18 2022-11-18 Outpatient SFA SFA [place] 16:40:54 16:40:54 [id number] [facility] [place] 2022-11-11 2022-11-11 Outpatient SFA SFA [place] 08:28:15 08:28:15 [facility] [place] 2022-11-02 2022-11-02 Outpatient SFA SFA [place] 09:34:36 09:34:36 [place] 2022-10-05 2022-10-05 Outpatient SFA SFA [place] 10:47:07 10:47:07 [place] 2022-09-20 2022-09-20 Outpatient SFA SFA [place] 13:28:34 13:28:34 [facility] [place] 2022-09-09 2022-09-09 Outpatient SFA SFA [place] 13:45:17 13:45:17 [facility] [place] 2022-09-08 2022-09-08 Outpatient SFA SFA [place] 17:20:04 17:20:04 [place] 2022-08-25 2022-08-25 Outpatient SFA SFA [place] 10:39:31 10:39:31 [facility] 2022-08-19 2022-08-19 Outpatient SFA SFA [place] 09:39:44 09:39:44 [place] 2022-08-17 2022-08-17 Outpatient SFA SFA [place] 15:23:19 15:23:19 [facility] [place] Results Test Description Test Time Test Comments Results Result Comments Source PHOSPHATIDYLETHANOL, BLOOD 2023-05-09 15:37:17 Test Item Value Reference Range Interpretation Comme nts PHOSPHATIDYLETHANOL (PETH) (test code = 8490173) See scanned report. BLOOD [id number] 13:00:57 Test Item Value Reference Range Interpretation Comments CULTURE (BEAKER) (test No growth in 5 days code = 1095) BLOOD [id number] 13:00:57 Test Item Value Reference Range Interpretation Comments CULTURE (BEAKER) (test No growth in 5 days code = 1095) The specimen volume collected for this blood culture was below the optimum (10 mL per bottle or 20 mL total). Use of lower volumes may adversely affect recovery and/or detection times of some organisms.US ABDOMEN [id number] [facility] 1955 Sex: FUS ABDOMEN LIMITEDCLINICAL HISTORY: abd pain and AMS in patient with cirrhosis and ascitesCOMPARISON: None.TECHNIQUE: Grayscale images of the abdominal quadrants were obtained.FINDINGS / IMPRESSION:Small volume right upper quadrant ascites. No ascites and the otherabdominal quadrants, no safe window for paracentesis, no paracentesisperformed.Electronically Signed By: Jasson Spence05/05/2023 15:08 CDTWorkstation Name: [id number] W/PLT COUNT & AUTO [id number] 06:55:51 Test Item Value Reference Range Interpretation Comments WHITE BLOOD CELL COUNT (BEAKER) 6.9 K/ L 3.5-10.5 (test code = 775) RED BLOOD CELL COUNT (BEAKER) 3.39 M/ L 3.93-5.22 L (test code = 761) HEMOGLOBIN (BEAKER) (test code = 10.4 GM/DL 11.2-15.7 L 410) HEMATOCRIT (BEAKER) (test code = 31.2 % 34.1-44.9 L 411) MEAN CORPUSCULAR VOLUME (BEAKER) 92 fL 79-95 (test code = 753) MEAN CORPUSCULAR HEMOGLOBIN 30.7 pg 25.6-32.2 (BEAKER) (test code = 751) MEAN CORPUSCULAR HEMOGLOBIN CONC 33.3 GM/DL 32.2-35.5 (BEAKER) (test code = 752) RED CELL DISTRIBUTION WIDTH 16.8 % 11.7-14.4 H (BEAKER) (test code = 412) PLATELET COUNT (BEAKER) (test 105 K/CU MM 150-450 L code = 756) MEAN PLATELET VOLUME (BEAKER) 11.0 fL 9.4-12.3 (test code = 754) NUCLEATED RED BLOOD CELLS 0 /100 WBC 0-0 (BEAKER) (test code = 413) NEUTROPHILS RELATIVE PERCENT 58 % (BEAKER) (test code = 429) LYMPHOCYTES RELATIVE PERCENT 20 % (BEAKER) (test code = 430) MONOCYTES RELATIVE PERCENT 14 % (BEAKER) (test code = 431) EOSINOPHILS RELATIVE PERCENT 7 % (BEAKER) (test code = 432) BASOPHILS RELATIVE PERCENT 1 % (BEAKER) (test code = 437) NEUTROPHILS ABSOLUTE COUNT 3.95 K/ L 1.56-6.13 (BEAKER) (test code = 670) LYMPHOCYTES ABSOLUTE COUNT 1.36 K/ L 1.18-3.74 (BEAKER) (test code = 414) MONOCYTES ABSOLUTE COUNT (BEAKER) 0.96 K/ L 0.24-0.36 H (test code = 415) EOSINOPHILS ABSOLUTE COUNT 0.48 K/ L 0.04-0.36 H (BEAKER) (test code = 416) BASOPHILS ABSOLUTE COUNT (BEAKER) 0.07 K/ L 0.01-0.08 (test code = 417) IMMATURE GRANULOCYTES-RELATIVE 0.40 % 0.00-1.00 PERCENT (BEAKER) (test code = 2801) BASIC METABOLIC [id number] 05:45:46 Test Item Value Reference Range Interpretation Comments SODIUM (BEAKER) 127 meq/L 136-145 L (test code = 381) POTASSIUM 3.2 meq/L 3.5-5.1 L Specimen slight ly (BEAKER) (test hemolyzed code = 379) CHLORIDE (BEAKER) 101 meq/L 98-107 (test code = 382) CO2 (BEAKER) 16 meq/L 22-29 L (test code = 355) BLOOD UREA 14 mg/dL 7-21 NITROGEN (BEAKER) (test code = 354) CREATININE 1.26 mg/dL 0.57-1.25 H Specimen slight ly (BEAKER) (test hemolyzed code = 358) GLUCOSE RANDOM 101 mg/dL 70-105 (BEAKER) (test code = 652) CALCIUM (BEAKER) 7.8 mg/dL 8.4-10.2 L (test code = 697) EGFR (BEAKER) 47 Interpretatio n of eGFR (test code = [...] not appl icable for dialysis patien ts Director Of Pediatric Rehabilitation ID - [id number] 05:45:07 Test Item Value Reference Range Interpretation Comments MAGNESIUM (BEAKER) 2.1 mg/dL 1.6-2.6 Specimen slightly (test code = 627) hemolyzed Director Of Pediatric Rehabilitation ID - MMHEPATIC FUNCTION [id number] 05:45:07 Test Item Value Reference Range Interpretation Comments TOTAL PROTEIN (BEAKER) 5.0 gm/dL 6.0-8.3 L Speci men slightly (test code = 770) hemolyzed ALBUMIN (BEAKER) (test 2.5 g/dL 3.5-5.0 L Speci men slightly code = 1145) hemolyzed BILIRUBIN TOTAL 1.7 mg/dL 0.2-1.2 H Specimen sli ghtly (BEAKER) (test code = hemoly zed 377) BILIRUBIN DIRECT 0.9 mg/dL 0.1-0.5 H Specimen sl ightly (BEAKER) (test code = hemoly zed 706) ALKALINE PHOSPHATASE 60 U/L 40-150 (BEAKER) (test code = 346) AST (SGOT) (BEAKER) 53 U/L 5-34 H Specimen slightly (test code = 353) hemolyzed ALT (SGPT) (BEAKER) 23 U/L 6-55 Specimen slightly (test code = 347) hemolyzed Director Of Pediatric Rehabilitation ID - MMPROTHROMBIN [id number] 05:24:39 Test Item Value Reference Range Interpretation Comments PROTIME (BEAKER) (test code = 18.7 seconds 11.9-14.2 H 759) INR (BEAKER) (test code = 370) 1.68 <=5.90 RECOMMENDED COUMADIN/WARFARIN INR THERAPY RANGESSTANDARD DOSE: 2.0 - 3.0 Includes: PROPHYLAXIS for venous thrombosis, systemic embolization; TREATMENT for venous thrombosis and/or pulmonary embolus.HIGH RISK: Target INR is 2.5-3.5 for patients with mechanical heart valves.BASIC METABOLIC [id number] 06:17:40 Test Item Value Reference Range Interpretation Comments SODIUM (BEAKER) 128 meq/L 136-145 L (test code = 381) POTASSIUM 3.0 meq/L 3.5-5.1 L (BEAKER) (test code = 379) CHLORIDE (BEAKER) 101 meq/L 98-107 (test code = 382) CO2 (BEAKER) 18 meq/L 22-29 L (test code = 355) BLOOD UREA 16 mg/dL 7-21 NITROGEN (BEAKER) (test code = 354) CREATININE 1.22 mg/dL 0.57-1.25 (BEAKER) (test code = 358) GLUCOSE RANDOM 107 mg/dL 70-105 H (BEAKER) (test code = 652) CALCIUM (BEAKER) 8.2 mg/dL 8.4-10.2 L (test code = 697) EGFR (BEAKER) 49 Interpretati on of eGFR (test code = mL/min/1.73 values [...] not appl icable for dialysis patien ts Director Of Pediatric Rehabilitation ID - ADMINSpecimen slightly ictericHEPATIC FUNCTION [id number] 06:17:40 Test Item Value Reference Range Interpretation Comments TOTAL PROTEIN (BEAKER) (test code = 5.3 gm/dL 6.0-8.3 L 770) ALBUMIN (BEAKER) (test code = 1145) 2.7 g/dL 3.5-5.0 L BILIRUBIN TOTAL (BEAKER) (test code 2.4 mg/dL 0.2-1.2 H = 377) BILIRUBIN DIRECT (BEAKER) (test 1.3 mg/dL 0.1-0.5 H code = 706) ALKALINE PHOSPHATASE (BEAKER) (test 64 U/L 40-150 code = 346) AST (SGOT) (BEAKER) (test code = 54 U/L 5-34 H 353) ALT (SGPT) (BEAKER) (test code = 22 U/L 6-55 347) Director Of Pediatric Rehabilitation ID - ADMINSpecimen slightly [id number] 06:17:39 Test Item Value Reference Range Interpretation Comments MAGNESIUM (BEAKER) (test code = 2.2 mg/dL 1.6-2.6 627) Director Of Pediatric Rehabilitation ID - ADMINPROTHROMBIN [id number] 05:35:06 Test Item Value Reference Range Interpretation Comments PROTIME (BEAKER) (test code = 18.6 seconds 11.9-14.2 H 759) INR (BEAKER) (test code = 370) 1.59 <=5.90 RECOMMENDED COUMADIN/WARFARIN INR THERAPY RANGESSTANDARD DOSE: 2.0 - 3.0 Includes: PROPHYLAXIS for venous thrombosis, systemic embolization; TREATMENT for venous thrombosis and/or pulmonary embolus.HIGH RISK: Target INR is 2.5-3.5 for patients with mechanical heart valves.CBC W/PLT COUNT & AUTO [id number] 05:25:16 Test Item Value Reference Range Interpretation Comments WHITE BLOOD CELL COUNT (BEAKER) 7.8 K/ L 3.5-10.5 (test code = 775) RED BLOOD CELL COUNT (BEAKER) 3.23 M/ L 3.93-5.22 L (test code = 761) HEMOGLOBIN (BEAKER) (test code = 9.9 GM/DL 11.2-15.7 L 410) HEMATOCRIT (BEAKER) (test code = 28.9 % 34.1-44.9 L 411) MEAN CORPUSCULAR VOLUME (BEAKER) 90 fL 79-95 (test code = 753) MEAN CORPUSCULAR HEMOGLOBIN 30.7 pg 25.6-32.2 (BEAKER) (test code = 751) MEAN CORPUSCULAR HEMOGLOBIN CONC 34.3 GM/DL 32.2-35.5 (BEAKER) (test code = 752) RED CELL DISTRIBUTION WIDTH 16.6 % 11.7-14.4 H (BEAKER) (test code = 412) PLATELET COUNT (BEAKER) (test 117 K/CU MM 150-450 L code = 756) MEAN PLATELET VOLUME (BEAKER) 10.8 fL 9.4-12.3 (test code = 754) NUCLEATED RED BLOOD CELLS 0 /100 WBC 0-0 (BEAKER) (test code = 413) NEUTROPHILS RELATIVE PERCENT 57 % (BEAKER) (test code = 429) LYMPHOCYTES RELATIVE PERCENT 20 % (BEAKER) (test code = 430) MONOCYTES RELATIVE PERCENT 14 % (BEAKER) (test code = 431) EOSINOPHILS RELATIVE PERCENT 8 % (BEAKER) (test code = 432) BASOPHILS RELATIVE PERCENT 1 % (BEAKER) (test code = 437) NEUTROPHILS ABSOLUTE COUNT 4.47 K/ L 1.56-6.13 (BEAKER) (test code = 670) LYMPHOCYTES ABSOLUTE COUNT 1.57 K/ L 1.18-3.74 (BEAKER) (test code = 414) MONOCYTES ABSOLUTE COUNT (BEAKER) 1.11 K/ L 0.24-0.36 H (test code = 415) EOSINOPHILS ABSOLUTE COUNT 0.59 K/ L 0.04-0.36 H (BEAKER) (test code = 416) BASOPHILS ABSOLUTE COUNT (BEAKER) 0.08 K/ L 0.01-0.08 (test code = 417) IMMATURE GRANULOCYTES-RELATIVE 0.30 % 0.00-1.00 PERCENT (BEAKER) (test code = 2801) URINALYSIS W/ REFLEX URINE [id number] 01:28:35 Test Item Value Reference Range Interpretation Comments COLOR (BEAKER) (test code = 470) Bern CLARITY (BEAKER) (test code = 469) Clear SPECIFIC GRAVITY UA (BEAKER) (test 1.016 1.001-1.035 code = 468) PH UA (BEAKER) (test code = 467) 6.0 5.0-8.0 PROTEIN UA (BEAKER) (test code = 10 mg/dL Negative A 464) GLUCOSE UA (BEAKER) (test code = Negative Negative 365) KETONES UA (BEAKER) (test code = Negative Negative 371) BILIRUBIN UA (BEAKER) (test code = Negative Negative 462) BLOOD UA (BEAKER) (test code = 461) Negative Negative NITRITE UA (BEAKER) (test code = Negative Negative 465) LEUKOCYTE ESTERASE UA (BEAKER) (test Trace Negative A code = 466) UROBILINOGEN UA (BEAKER) (test code 0.2 0.2-1.0 = 463) RBC UA (BEAKER) (test code = 519) 1 /HPF WBC UA (BEAKER) (test code = 520) 2 /HPF BACTERIA (BEAKER) (test code = 517) Rare SQUAMOUS EPITHELIAL (BEAKER) (test 2 /HPF code = 516) HYALINE CASTS (BEAKER) (test code = 7 /LPF 514) CASTS (BEAKER) (test code = 1579) 3 /LPF CRYSTALS, URINE (BEAKER) (test code Rare None Seen A = 1521) SOURCE(BEAKER) (test code = 2795) Director Of Pediatric Rehabilitation ID - [auto]Director Of Pediatric Rehabilitation ID - [id number] 17:25:20 Test Item Value Reference Range Interpretation Comments LIPASE (BEAKER) (test code = 749) 39 U/L 8-78 Director Of Pediatric Rehabilitation ID - ADMINSpecimen slightly ictericHEMOGLOBIN AND [id number] 16:59:35 Test Item Value Reference Range Interpretation Comments HEMOGLOBIN (BEAKER) (test code = 10.5 GM/DL 11.2-15.7 L 410) HEMATOCRIT (BEAKER) (test code = 30.3 % 34.1-44.9 L 411) Director Of Pediatric Rehabilitation ID - [id number]-GLUCOSE [id number] 16:45:06 Test Item Value Reference Range Interpretation Comments POC-GLUCOSE METER 159 mg/dL 70-110 H : TESTED A T [facility] 6720 (BEAKER) (test code [facility], = 1538) [address]: Director Of Pediatric Rehabilitation/Techni al ID = [id number] for Yamil (contract), LaT onya [id number] 12:49:46 Test Item Value Reference Range Interpretation Comments MAGNESIUM (BEAKER) (test code = 2.3 mg/dL 1.6-2.6 627) Director Of Pediatric Rehabilitation ID - ADMINBASIC METABOLIC [id number] 12:49:46 Test Item Value Reference Range Interpretation Comments SODIUM (BEAKER) 132 meq/L 136-145 L (test code = 381) POTASSIUM 3.7 meq/L 3.5-5.1 (BEAKER) (test code = 379) CHLORIDE (BEAKER) 103 meq/L 98-107 (test code = 382) CO2 (BEAKER) 18 meq/L 22-29 L (test code = 355) BLOOD UREA 17 mg/dL 7-21 NITROGEN (BEAKER) (test code = 354) CREATININE 1.12 mg/dL 0.57-1.25 (BEAKER) (test code = 358) GLUCOSE RANDOM 102 mg/dL 70-105 (BEAKER) (test code = 652) CALCIUM (BEAKER) 8.5 mg/dL 8.4-10.2 (test code = 697) EGFR (BEAKER) 54 Interpretatio n of eGFR (test code = [...] not appl icable for dialysis patien ts Director Of Pediatric Rehabilitation ID - ADMINSpecimen moderately ictericHEPATIC FUNCTION [id number] 12:49:46 Test Item Value Reference Range Interpretation Comments TOTAL PROTEIN (BEAKER) (test code = 5.5 gm/dL 6.0-8.3 L 770) ALBUMIN (BEAKER) (test code = 1145) 2.8 g/dL 3.5-5.0 L BILIRUBIN TOTAL (BEAKER) (test code 3.5 mg/dL 0.2-1.2 H = 377) BILIRUBIN DIRECT (BEAKER) (test 1.7 mg/dL 0.1-0.5 H code = 706) ALKALINE PHOSPHATASE (BEAKER) (test 60 U/L 40-150 code = 346) AST (SGOT) (BEAKER) (test code = 54 U/L 5-34 H 353) ALT (SGPT) (BEAKER) (test code = 23 U/L 6-55 347) Director Of Pediatric Rehabilitation ID - ADMINSpecimen moderately ictericHEMOGLOBIN [id number] 12:00:19 Test Item Value Reference Range Interpretation Comments HEMOGLOBIN A1C 4.5 % See_Comment [Automated m essage] ELECTROPHORESIS ([facility]) The system which (test code = 3811) generated this result transmitted ref erence range: <=5.6%. The reference range was not used to int erpret this result as normal/abnormal . "The A1c is measured using a NGSP-certified method. HbA1c value equal to or greater than 6.5% as thediagnosis cutoff for diabetes. An HbA1c value of 5.7- 6.4% indicates increased risk for diabetes (prediabetes)."Director Of Pediatric Rehabilitation ID - ADMOperator ID - ADMPOCT-GLUCOSE [id number] 11:40:06 Test Item Value Reference Range Interpretation Comments POC-GLUCOSE METER 112 mg/dL 70-110 H : TESTED A T [facility] ([employer]) (test code [facility], = 1538) [address]204: Director Of Pediatric Rehabilitation/Techni al ID = [id number] for Yamil (contract), [place] POCT-GLUCOSE [id number] 07:54:33 Test Item Value Reference Range Interpretation Comments POC-GLUCOSE METER 107 mg/dL 70-110 : TESTED A T [facility] (BEAKER) (test code [facility], = 1538) [address]125: Director Of Pediatric Rehabilitation/Techni al ID = [id number] for Yamil (contract), [place] [employer] PROTHROMBIN [id number] 05:16:09 Test Item Value Reference Range Interpretation Comments PROTIME (BEAKER) (test code = 18.6 seconds 11.9-14.2 H 759) INR (BEAKER) (test code = 370) 1.59 <=5.90 RECOMMENDED COUMADIN/WARFARIN INR THERAPY RANGESSTANDARD DOSE: 2.0 - 3.0 Includes: PROPHYLAXIS for venous thrombosis, systemic embolization; TREATMENT for venous thrombosis and/or pulmonary embolus.HIGH RISK: Target INR is 2.5-3.5 for patients with mechanical heart valves.CBC W/PLT COUNT & AUTO [id number] 04:50:55 Test Item Value Reference Range Interpretation Comments WHITE BLOOD CELL COUNT (BEAKER) 7.6 K/ L 3.5-10.5 (test code = 775) RED BLOOD CELL COUNT (BEAKER) 3.28 M/ L 3.93-5.22 L (test code = 761) HEMOGLOBIN (BEAKER) (test code = 10.1 GM/DL 11.2-15.7 L 410) HEMATOCRIT (BEAKER) (test code = 29.5 % 34.1-44.9 L 411) MEAN CORPUSCULAR VOLUME (BEAKER) 90 fL 79-95 (test code = 753) MEAN CORPUSCULAR HEMOGLOBIN 30.8 pg 25.6-32.2 (BEAKER) (test code = 751) MEAN CORPUSCULAR HEMOGLOBIN CONC 34.2 GM/DL 32.2-35.5 (BEAKER) (test code = 752) RED CELL DISTRIBUTION WIDTH 16.9 % 11.7-14.4 H (BEAKER) (test code = 412) PLATELET COUNT (BEAKER) (test 118 K/CU MM 150-450 L code = 756) MEAN PLATELET VOLUME (BEAKER) 10.7 fL 9.4-12.3 (test code = 754) NUCLEATED RED BLOOD CELLS 0 /100 WBC 0-0 (BEAKER) (test code = 413) NEUTROPHILS RELATIVE PERCENT 64 % (BEAKER) (test code = 429) LYMPHOCYTES RELATIVE PERCENT 18 % (BEAKER) (test code = 430) MONOCYTES RELATIVE PERCENT 14 % (BEAKER) (test code = 431) EOSINOPHILS RELATIVE PERCENT 3 % (BEAKER) (test code = 432) BASOPHILS RELATIVE PERCENT 1 % (BEAKER) (test code = 437) NEUTROPHILS ABSOLUTE COUNT 4.89 K/ L 1.56-6.13 (BEAKER) (test code = 670) LYMPHOCYTES ABSOLUTE COUNT 1.33 K/ L 1.18-3.74 (BEAKER) (test code = 414) MONOCYTES ABSOLUTE COUNT (BEAKER) 1.09 K/ L 0.24-0.36 H (test code = 415) EOSINOPHILS ABSOLUTE COUNT 0.20 K/ L 0.04-0.36 (BEAKER) (test code = 416) BASOPHILS ABSOLUTE COUNT (BEAKER) 0.08 K/ L 0.01-0.08 (test code = 417) IMMATURE GRANULOCYTES-RELATIVE 0.30 % 0.00-1.00 PERCENT (BEAKER) (test code = 2801) ALPHA FETOPROTEIN (AFP), TUMOR [id number] 17:52:44 Test Item Value Reference Range Interpretation Comments ALPHA-FETOPROTEIN (BEAKER) 72444.9 ng/mL <10.0 H (test code = 1094) Director Of Pediatric Rehabilitation ID - ADMINOperator ID - ADMINCARCINOEMBRYONIC ANTIGEN (CEA)2023-04-21 17:50:11 Test Item Value Reference Range Interpretation Comments CARCINOEMBRYONIC ANTIGEN (BEAKER) 4.4 ng/mL 0.0-5.0 (test code = 685) Director Of Pediatric Rehabilitation ID - ADMINBASIC METABOLIC [id number] 17:05:15 Test Item Value Reference Range Interpretation [...] not appl icable for dialysis patien ts Director Of Pediatric Rehabilitation ID - MMSpecimen moderately ictericHEPATIC FUNCTION [id number] 17:05:15 Test Item Value Reference Range Interpretation [...] (test code = 27 U/L 6-55 347) Director Of Pediatric Rehabilitation ID - MMSpecimen moderately ictericPROTHROMBIN [id number] 16:53:01 Test Item Value Reference Range Interpretation [...] mechanical heart valves.CBC W/PLT COUNT & AUTO [id number] 16:47:14 Test Item Value Reference Range Interpretation [...] 0.00-1.00 PERCENT (BEAKER) (test code = 2801) [id number] 18:32:48Medical Cytology Report Case: [id number] Authorizing Provider: Rach Gonzalez MD Collected: 04/14/2023 01:32 PM Ordering Location: [facility] Abdominal Clinic Received: 04/18/2023 04:17 PM Pathologist: Trev Sung MD Specimen: Peritoneal Fluid PERITONEAL FLUID (CYTOSPINS): - NEGATIVE FOR MALIGNANCYReactive mesothelial cells and mixed chronic inflammatory cells present Signing Pathologist Direct Phone Line: [phone] signed by Trev Sung MD on 04/19/2023 at 6:32 [id number] y.o. F with h/o Cancer (HCC), HCV, cirrhosisPERITONEAL FLUIDA. Peritoneal FluidReceived 8 ml yellow fluid;prepared 4 cytospins, not enough material for cell block. Performed.[facility], Department of Pathology, [address] [place] [address], [facility], [facility], [address] [place] [address], [facility], [facility] of [facility], [address] [place] [address], [id number] METABOLIC PANEL 2023-04-18 17:06:28 Test Item Value Reference Range Interpretation [...] for dialysis patien ts Specimen slightly ictericU/S, [id number] 16:42:00Send ascitic fluid for cell count and differential If Cr > 1.5, do not remove more than 3.5L of ascitic fluid. If > 3L removed, please administer 200 mL of albumin 25% (50 grams) IV x 1Labs to beordered:->Cell CountReason for Exam:->Ascites, cirrhosisCHI SHARP MESA VISTAName: [facility]DH[place] : 1955 Sex: FFINAL REPORT Ultrasound guided paracentesis. Clinical History: Ascites. Sedation: None. Oil Winterizer: Freda Ewing PA-C [employer] Operator: None. Estimated Blood Loss: < 1 cc. [...] was achieved with 2% lidocaine, a 5 Japanese one-step catheter was advanced into the peritoneal cavity under ultrasound guidance. After completion of drainage, the catheter was removed. There was no evidence of complication. Impression:Successful ultrasoundguided paracentesis. Signed: Jerry Villatoro Verified Date/Time: 04/14/2023 16:42:18 Reading Location: [address] Ultrasound Reading Room Electronically signed by: JERRY VILLATORO MD on 2022 04:42 PMBODY FLUID CELL COUNT WITH [id number] 16:12:21 Test Item Value Reference Range Interpretation [...] (BEAKER) Sterile Vial (test code = 2873) [id number] 12:35:46 Test Item Value Reference Range Interpretation Comments POC-CREATININ 0.9 mg/dL 0.6-1.3 : TESTED AT [facility] [address] (BEAKER) [facility], [address]: (test code = Director Of Pediatric Rehabilitation/Techni al ID = [id number]) [id number] for Fall er, Tanisha POC-EGFR 70 Interpretation [...] patien ts CBC W/PLT COUNT & AUTO [id number] 11:36:05 Test Item Value Reference Range Interpretation [...] PERCENT (BEAKER) (test code = 2801) PROTHROMBIN [id number] 11:34:04 Test Item Value Reference Range Interpretation Comments PROTIME (BEAKER) (test code = 16.0 seconds 11.9-14.2 H 759) INR (BEAKER) (test code = 370) 1.31 <=5.90 RECOMMENDED COUMADIN/WARFARIN INR THERAPY RANGESSTANDARD DOSE: 2.0 - 3.0 Includes: PROPHYLAXIS for venous thrombosis, systemic embolization; TREATMENT for venous thrombosis and/or pulmonary embolus.HIGH RISK: Target INR is 2.5-3.5 for patients with mechanical heart valves.MR, ABDOMEN, [id number] 15:43:00 Unlisted Reason for Exam - Click Yes and Enter Reason Below->YesUnlisted Reason for Exam->cirrhosis, HCC 2.3 cm mass in November 2022 [facility] : 1955 Sex: FFINAL REPORT [...] 3 observation in segment 7/8. Signed: Ryann Rizo Verified Date/Time: 04/08/2023 15:43:40 Reading Location: [address] Ortho Consult Reading Room CT, CHEST, WITH [id number] 00:02:00Unlisted Reason for Exam - Click Yes and Enter Reason Below->Yes Unlisted Reason for Exam->HCC, r.o mets [facility] : 1955 Sex: FFINAL REPORT [...] and portal hypertension.3. Small ascites. Signed: Niko Ochoa MDReport Verified Date/Time: 04/07/2023 00:02:47 Liver Fibrosis, FibroTest- ActiTest [id number] 12:21:57 Test Item Value Reference Interpretation Comments Range Fibrosis Score 0.96 (test code = 4282129) Fibrosis Stage F4 (test code = 8873913) FIBROSIS SEE BELOW severe fibrosi s Fibro [...] Necroinflammat A1-A2 Activity Grade (test code = 38069-0) NECROINFLAMMAT SEE BELOW minimal acti vity INTERP [...] (test 35 U/L 6-29 H code = 7681719) ALPHA 2 327 mg/dL 106-279 H MACROGLOBULIN (QUEST) (test code = 5423244) Haptoglobin (test <8 43-212 L Check if h aemolysis as code = 2557872) bilirubin is high and haptoglobin low . Apolipoprotein A-1 97 mg/dL 101-198 L (test code = 8065288) NECROINFLAM ACT 0.38 SCORE (QUEST) (test code = 2772760) REFERENCE ID [id number] (QUEST) (test code = 1269501) FOOTNOTE (QUEST) SEE BELOW The reliab ility of (test code = results is depe ndent 6654979) on compliance w ith the preanalytical a [...] caution in interpreting th e results. In amrk e of discordance bet ween a biopsy [...] perf ormance characteristics have been determined by [facility]. It has not been cleared or approvedby the U.S. Food and Drug Administration. Performance characteristics referto the davion lytical performance of the test. Quest, [employer]ostics, th e associated logo , [facility] and allassociated Q uest Diagnostics mar ks are the registered trademarks of [employer]. All third constitution party mar ks - (R) and (TM) - are the property of theirrespective owners. (C) 200 0-2013 [employer]. A ll rightsreserved. WILVER (test code = Performing Lab WILVER) [facility]Z [facility] [address] [place] [address] Joe Rodriguez MD, PhD, SCOTT Lab Interpretation Abnormal (test code = 12217-5) [facility] Fibrosis, FibroTest-ActiTest [id number] 12:21:57 Test Item Value Reference Interpretation Comments Range Fibrosis Score 0.96 (test code = 6900994) Fibrosis Stage F4 (test code = 6495062) FIBROSIS SEE BELOW severe fibrosi s Fibro [...] Necroinflammat A1-A2 Activity Grade (test code = 44767-3) NECROINFLAMMAT SEE BELOW minimal acti vity INTERP [...] (test 35 U/L 6-29 H code = 3344417) ALPHA 2 327 mg/dL 106-279 H MACROGLOBULIN (QUEST) (test code = 1507989) Haptoglobin (test <8 43-212 L Check if h aemolysis as code = 9346367) bilirubin is high and haptoglobin low . Apolipoprotein A-1 97 mg/dL 101-198 L (test code = 0953936) NECROINFLAM ACT 0.38 SCORE (QUEST) (test code = 9073693) REFERENCE ID [id number] (QUEST) (test code = 6489173) FOOTNOTE (QUEST) SEE BELOW The reliab ility of (test code = results is depe ndent 0304655) on compliance w ith the preanalytical a nd analytical cond itions recommended by [employer]. The tests have to b e deferred for: a cute hemolysis, acut e hepatitis, acut e inflammation, e xtra hepatic cholest asis. The advice of a specialist subhash del valle be sought for interpretation in chronic hemolys [...] perf ormance characteristics have been determined by [facility]. It has not been cleared or approvedby the U.S. Food and Drug Administration. Performance characteristics referto the davion lytical performance of the test. Quest, Qu [employer], th e associated logo , [facility] and allassociated Q uest Diagnostics mar ks are the registered trademarks of [employer]. All third constitution party mar ks - (R) and (TM) - are the property of theirrespective owners. (C) 200 0-2013 [employer]. A ll rightsreserved. WILVER (test code = Performing Lab WILVER) [facility]Z [facility] [address] [place] [address] Joe Rodriguez MD, PhD, SCOTT Lab Interpretation Abnormal (test code = 51637-7) [facility] PCR, [id number] 05:44:38 Test Item Value Reference Range Interpretation Comments HCV NUMERIC RESULT (BEAKER) 1419661 IU/mL <15 H (test code = 2700) ALPHA FETOPROTEIN (AFP), TUMOR [id number] 14:56:57 Test Item Value Reference Range Interpretation Comments ALPHA-FETOPROTEIN (BEAKER) (test 9109.5 ng/mL <10.0 H code = 1094) Director Of Pediatric Rehabilitation ID - ADMINOperator ID - ADMINHEPATITIS A ANTIBODY, [id number] 14:52:32 Test Item Value Reference Range Interpretation Comments HEPATITIS A IGG ANTIBODY (BEAKER) Nonreactive Nonreactive (test code = 2797) Director Of Pediatric Rehabilitation ID - ADMINHEPATITIS B CORE ANTIBODY, [id number] 14:52:32 Test Item Value Reference Range Interpretation Comments HEPATITIS B CORE TOTAL ANTIBODY Nonreactive Nonreactive (BEAKER) (test code = 497) Director Of Pediatric Rehabilitation ID - ADMINHIV-1 ANTIGEN WITH HIV-1/2 [id number] 14:52:32 Test Item Value Reference Range Interpretation Comments HIV-1 ANTIGEN WITH HIV 1\\T\\2 Nonreactive Nonreactive ANTIBODY (2) (BEAKER) (test code = 2586) Director Of Pediatric Rehabilitation ID - ADMINCARCINOEMBRYONIC ANTIGEN (CEA)2023-03-10 14:52:26 Test Item Value Reference Range Interpretation Comments CARCINOEMBRYONIC ANTIGEN (BEAKER) 4.1 ng/mL 0.0-5.0 (test code = 685) Director Of Pediatric Rehabilitation ID - ADMINBASIC METABOLIC [id number] 14:07:03 Test Item Value Reference Range Interpretation [...] not appl icable for dialysis patien ts Director Of Pediatric Rehabilitation ID - ADMINSpecimen slightly ictericHEPATIC FUNCTION [id number] 14:07:03 Test Item Value Reference Range Interpretation [...] (test code = 39 U/L 6-55 347) Director Of Pediatric Rehabilitation ID - ADMINSpecimen slightly ictericPROTHROMBIN [id number] 13:25:20 Test Item Value Reference Range Interpretation [...] mechanical heart valves.CBC W/PLT COUNT & AUTO [id number] 13:17:55 Test Item Value Reference Range Interpretation [...] (BEAKER) (test code = 2801) HEPATITIS C [id number] 13:15:29 Test Item Value Reference Range Interpretation Comments HEPATITIS C GENOTYPE 3 Assay methodology is (test code = 09913) real-micheal e PCR amplification of the 5'UTR an dNS5b regions of the HCV lisa me utilizing the Holm Real Time HCVGenotype II assay and Holm HCV Lisa type Plus assay. Possible genotypes include 1a, 1b, 2, 3, 4, 5, and 6. UNLESS O THERWISE INDICATED, ALL TESTING PERFORMED [facility] PATHOLOGY [facility], [facility]. [address] [place] [address] LABORATOR Y DIRECTOR: JORGE CONDE M.D. IA NUMBER [id number] CAP ACCREDITATION N O. [id number] AFP, TUMOR [id number] 09:35:09 Test Item Value Reference Range Interpretation Comments AFP, TUMOR MARKER 72167.00 NG/ML See_Comment H [Automa murtaza message] (test code = The system Speech Kingdomic h 45187) generated this result transmitted ref erence range: <=8.30. The reference range was not used to int erpret this result as normal/abnormal . DAVION (ANTI-NUCLEAR AB) WITH REFLEX [id number] 00:57:23 Test Item Value Reference Range Interpretation Comments ANTI-NUCLEAR POSITIVE NEGATIVE A ANTIBODIES (test code = 3506) DAVION PATTERN SEE BELOW (REPORTED TITER) (test code = 64279) HOMOGENEOUS (test 1:320 TITER NEGATIVE H code = 59138) SPECKLED (test NEGATIVE TITER NEGATIVE code = 148067) DENSE FINE NEGATIVE TITER NEGATIVE SPECKLED (test code = 20751) CENTROMERE (test NEGATIVE TITER NEGATIVE code = 921818) COARSE SPECKLED NEGATIVE TITER NEGATIVE (test code = 587645) DISCRETE NUCLEAR NEGATIVE TITER NEGATIVE DOTS (test code = 511881) NUCLEOLAR (test NEGATIVE TITER NEGATIVE code = 913518) NUCLEAR MEMBRANE NEGATIVE TITER NEGATIVE (test code = 988369) CYTO. RETICULAR NEGATIVE NEGATIVE (REUBEN) (test code = 222253) COMMENTS (test NONE code = 260642) METHOD (test code (NOTE) NOTE: EFF ECTIVE = 36094) 06/21/2022, MET HOD IS TRANSITIONED TO THE [facility] . THE METHOD INCLUDES A SCREENTHRESHOLD OF 1:80, DIGITIZED AND COMPUTER ALGORITHM-NOLBERTO LEONE RPRETATION OF T ITERS AND DIGITAL PAT TERNS, AND HEp-2 CELLL INE SUBSTRATE. FINESSE TIONAL UNUSUAL PATTERN S WILL BE GIVEN ASCOMM ENTS. FOR MORE INFORM ATION, SEE [email or web address] sting [id number] 06:51:48 Test Item Value Reference Range Interpretation Comments FERRITIN (test code = 2075) 333 NG/ML 13-200 H VITAMIN B 12 AND FOLIC [id number] 06:51:48 Test Item Value Reference Range Interpretation [...] UNLESS OT HERWISE INDICATED, ALL TESTING PERFORMED [facility] PATHOLOGY [facility] [employer] [address] [place] [address] 4 LABORATORY DIRE CTOR: JORGE CONDE M.D. CLIA NUMBER [id number] [place] [id number] HEPATITIS PANEL, [id number] 05:14:35 Test Item Value Reference Range Interpretation Comments HEPATITIS A IgM (test NON-REACTIVE NON-REACTIVE code = 16372) HEPATITIS B CORE IgM NON-REACTIVE NON-REACTIVE (test code = 4644) HEPATITIS B SURF AG NON-REACTIVE NON-REACTIVE (test code = 2739) HEPATITIS C ANTIBODY REACTIVE NON-REACTIVE A (test code = 4675) INTERPRETATION (NOTE) Hepatitis A HEPATITIS A: (test serology shows no code = 2552) evidence of acu te hepatitis A. INTERPRETATION (NOTE) Hepatitis B HEPATITIS B: (test serology shows no code = 95676) evidence of ac [place] hepatitis B and no indication of exposure to hepatitis B vir us in the previous si xto eight months. INTERPRETATION (NOTE) Hepatitis C HEPATITIS C: (test serology is code = 21857) consistent wit h exposure to hepatitis Cviru s. The CDC recomme nds performing a supplemental confirmatory te ston initial positiv e hepatitis C ant ibody tests. HCV PCR quantitativecan be used to confirm these results o n a new sample (See MMWR, 2003;52 R R-3). [id number] 04:48:58 Test Item Value Reference Range Interpretation Comments GGT (test code = 2216) 63 U/L <40 H [id number] 04:48:58 Test Item Value Reference Range Interpretation Comments TRANSFERRIN (test code = 4936) 210 MG/DL 200-360 IRON BINDING CAPACITY AND IRON AND % [id number] 04:48:29 Test Item Value Reference Range Interpretation Comments IRON, SERUM (test code = 222) 117 UG/DL 37-145 UNSATURATED IBC (test code = 03678) 141 UG/DL 112-347 CALC TOTAL IBC (test code = 2076) 258 UG/DL 250-450 CALC % IRON SAT (test code = 2078) 45 % 20-50 HEMOGLOBIN [id number] 11:45:56 Test Item Value Reference Range Interpretation Comments HEMOGLOBIN A1c (test code = 79360) 5.0 % 4.2-5.6 LIPID [id number] 07:24:18 Test Item Value Reference Range Interpretation [...] MOREINFORMATION , SEE CLIENT ANNOUNCE MENT AT [email or web address] RATIO LDL/HDL 1.70 RATIO <3.22 (test code = 223) COMPREHENSIVE METABOLIC [id number] 07:24:18 Test Item Value Reference Range Interpretation Comments GLUCOSE (test code = 84 MG/DL 70-99 2216) BUN (test code = 11 MG/DL 8-23 2207) CREATININE (test 0.55 MG/DL 0.60-1.30 L code = 2214) eGFR (2020 CKD-EPI) 101 >60 (test code = 22736) ML/MIN/1.73 CALC BUN/CREAT (test 20 RATIO 6-28 code = 223) SODIUM (test code = 142 MEQ/L 192-842 0047) POTASSIUM (test code 3.8 MEQ/L 3.5-5.4 = 2227) CHLORIDE (test code 108 MEQ/L 95-107 H = 2214) CARBON DIOXIDE (test 23 MEQ/L 19-31 code = 2205) CALCIUM (test code = 8.2 MG/DL 8.5-10.5 L 2208) PROTEIN, TOTAL (test 6.2 G/DL 6.1-8.3 code = 2228) ALBUMIN (test code = 3.5 G/DL 3.5-5.2 2200) CALC GLOBULIN (test 2.7 G/DL 1.9-3.7 code = 2239) CALC A/G RATIO (test 1.3 RATIO 1.0-2.6 code = 2233) BILIRUBIN, TOTAL 1.7 MG/DL See_Comment H [Automated message] (test code = 2206) The syste m which generated this result [...] ED [facility] [place]. [address] [place] [address] LOCATED WITHIN [facility] DIRECTOR: JORGE MCGRATH M.D. CLIA NUMBER [id number] CAP ACCREDITATION N O. [id number]
[2023-05-23 06:14] LABS: Absolute Lymphocytes (CBC) 1.1 K/uL (0.7-4.9); Hematocrit 25.8 % (36.0-45.0); Lymphocytes % 16.8 % (15.3-44.8); MCV 91.2 fL (80-100); MPV 8.9 fL (7.6-11.3); RBC Red Blood Cell Count 2.83 M/uL (3.86-4.86)
[2023-05-23] MEDS ORDERED: FUROSEMIDE 20 MG/ 2ML VIAL ONE (06:16)
[2023-05-23] MEDS ORDERED: FUROSEMIDE 40 MG/4 ML VIAL ONE (06:16)
[2023-05-23 06:28] LABS: Albumin 2.7 g/dL (3.4-5.0); Bilirubin Direct 1.1 mg/dL (0-0.2); Bilirubin Total 2.1 mg/dL (0.2-1.0); Magnesium 3.5 mg/dL (1.6-2.4); Potassium 3.3 mEq/L (3.5-5.1); Troponin High Sensitivity 18.8 pg/mL (<58.9)
--- NOTE | 2023-05-23 07:22 | ER ---
Nurse's Notes [facility] Name: Edith Buck Age: 68 yrs Sex: Female : 1955 Arrival Date: 05/23/2023 Time: 04:58 Bed 5 Private MD: Diagnosis: Abdominal pain, Generalized;Alcoholic cirrhosis of liver;Alcoholic cirrhosis of liver with ascites;Liver cancer;Acute kidney injury Presentation: 05/23 05:15 Chief complaint: Patient states: I have been having N/V and abdominal pain for the past jb4 4 days. I have cirrhosis of the liver and liver cancer. I have had no appetite either. Coronavirus screen: At this time, the client does not indicate any symptoms associated with coronavirus-19. Ebola Screen: No symptoms or risks identified at this time. Initial Sepsis Screen: Does the patient meet any 2 criteria? No. Patient's initial sepsis screen is negative. Does the patient have a suspected source of infection? Yes:. Risk Assessment: Do you want to hurt yourself or someone else? Patient reports no desire to harm self or others. Onset of symptoms was May 19, 2023. Transition of care: patient was not received from another setting of care. 05:15 Method Of Arrival: Wheelchair jb4 05:15 Acuity: FLORA 3 jb4 Historical: - Allergies: 05:17 Amoxicillin; jb4 05:17 Codeine; jb4 05:17 PENICILLINS; jb4 - PMHx: 05:17 cirrhosis of liver; alcohol abuse; LIVER CA; jb4 - PSHx: 05:17 Ligation of fallopian tube; Tonsillectomy; Total abdominal hysterectomy; jb4 - Immunization history:: Adult Immunizations up to date. - Social history:: Smoking status: Patient denies any tobacco usage or history of. Patient/guardian denies using alcohol, but has a distant history of alcohol abuse. Screenin:50 [facility] ED Fall Risk Assessment (Adult) History of falling in the last 3 months, ld1 including since admission No falls in past 3 months (0 pts). Abuse screen: Denies threats or abuse. Denies injuries from another. Nutritional screening: No deficits noted. Tuberculosis screening: No symptoms or risk factors identified. Assessment: 05:30 General: Appears in no apparent distress. uncomfortable, Behavior is calm, cooperative, jb4 appropriate for age. Pain: Complains of pain in abdomen Pain does not radiate. Pain currently is 8 out of 10 on a pain scale. Neuro: Level of Consciousness is awake, alert, obeys commands, Oriented to person, place, time, situation. Cardiovascular: Patient's skin is warm and dry. Respiratory: Airway is patent Respiratory effort is even, unlabored, Respiratory pattern is regular, symmetrical. GI: No signs and/or symptoms were reported involving the gastrointestinal system. : No signs and/or symptoms were reported regarding the genitourinary system. EENT: No signs and/or symptoms were reported regarding the EENT system. Derm: Skin is intact, Skin is pink, warm \T\ dry. Musculoskeletal: Circulation, motion, and sensation intact. Range of motion: intact in all extremities, Swelling present in right leg and left leg. 06:28 Reassessment: Patient appears in no apparent distress at this time. Patient and/or jb4 family updated on plan of care and expected duration. Pain level reassessed. Patient is alert, oriented x 3, equal unlabored respirations, skin warm/dry/pink. 08:00 Reassessment: Patient is alert, oriented x 3, equal unlabored respirations, skin aa5 warm/dry/pink. Pt assisted to bedside commode, unsuccessful attempt to void. Pt placed back in bed. . 09:00 Reassessment: Patient is alert, oriented x 3, equal unlabored respirations, skin aa5 warm/dry/pink. 10:00 Reassessment: Patient is alert, oriented x 3, equal unlabored respirations, skin aa5 warm/dry/pink. 10:05 Reassessment: Report given to nurse Alexey at [facility]. . aa5 Vital Signs: 05:15 BP 124 / 45; Pulse 79; Resp 20; Temp 97.8(O); Pulse Ox 100% on NC; Weight 76.2 kg (M); jb4 Height 5 ft. 4 in. (R); Pain 08/23; 06:28 BP 113 / 49; Pulse 78; Resp 16; Pulse Ox 98% on R/A; jb4 07:30 BP 115 / 54; Pulse 81; Resp 16 S; Pulse Ox 98% on R/A; aa5 09:00 BP 116 / 38; Pulse 82; Resp 18 S; Temp 98(O); Pulse Ox 98% on R/A; aa5 05:15 Body Mass Index 28.84 (76.20 kg, 162.56 cm) jb4 05:15 Pain Scale: Adult jb4 ED Course: 05:01 Patient arrived in ED. ja2 05:06 Andrez Chang MD is Attending Physician. kdr 05:15 Horace Clark, RN is Primary Nurse. jb4 05:17 Triage completed. jb4 05:17 Arm band placed on right wrist. jb4 06:01 Initial lab(s) drawn, by ak, sent to lab. Inserted saline lock: 20 gauge in right 4 antecubital area, using aseptic technique. Blood collected. 06:12 XRAY Chest (1 view) In Process Unspecified. EDMS 08:49 Attending Physician role handed off by Andrez Chang MD rn 08:49 Raji Ortiz MD is Attending Physician. rn 10:51 Patient has correct armband on for positive identification. Placed in gown. Bed in low ld1 position. Call light in reach. Side rails up X2. Report given to EMS. 10:51 No provider procedures requiring assistance completed. Patient transferred, IV remains ld1 in place. Administered Medications: 06:17 Drug: Furosemide IVP 60 mg Route: IVP; Site: right antecubital; jb4 07:30 Follow up: Response: No adverse reaction aa5 09:34 Drug: Albumin IVPB 50 grams Volume: 100 ml; Route: IVPB; Site: right antecubital; aa5 11:00 Follow up: IV Status: Completed infusion aa5 Medication: 10:51 VIS not applicable for this client. ld1 Outcome: 07:22 ER care complete, transfer ordered by . kdr 10:51 Transferred by [facility] to [facility]. ld1 10:51 Condition: stable 10:51 Instructed on the need for transfer. 11:00 Patient left the ED. aa5 Signatures: Dispatcher [employer] EDMS Andrez Chang MD MD kdr Raji Ortiz MD MD rn Calderon, Audri, RN RN aa5 Horace Clark RN RN jb4 Narcisa Montenegro RN RN ld1 Freda Sena [facility] Corrections: (The following items were deleted from the chart) 06:55 05:30 Musculoskeletal: Circulation, motion, and sensation intact. Range of motion: jb4 intact in all extremities, jb4 09:14 09:00 Reassessment: Patient is alert, oriented x 3, equal unlabored respirations, skin aa5 warm/dry/pink. Pt assisted to bedside commode, unsuccessful attempt to void. Pt placed back in bed. . aa5 12:50 10:51 Patient left the ED. ld1 aa5
--- NOTE | 2023-05-23 07:23 | EDPHYS ---
Physician Documentation [facility] Name: Edith Buck Age: 68 yrs Sex: Female : 1955 Arrival Date: 05/23/2023 Time: 04:58 Bed 5 Private MD: ED Physician Raji Ortiz HPI: 05/23 07:24 This 68 yrs old Female presents to ER via Wheelchair with complaints of Doesn't Feel kdr Right. 07:24 Patient presents to the ED today with family. Family states that the patient has been kdr having nausea vomiting for the last 4 days along with abdominal pain. Patient has a history of liver cancer and cirrhosis. This was secondary to alcohol use previously. Patient also complains of generalized confusion. Patient has no other active complaints. Patient also has some mild to moderate peripheral edema that is worse than usual. Patient is overall nontoxic-appearing though she does appear mildly confused. Onset: The symptoms/episode began/occurred gradually, 4 day(s) ago. Severity of symptoms: At their worst the symptoms were mild moderate 4 day(s) ago. The patient has experienced similar episodes in the past, multiple times. Historical: - Allergies: 05:17 Amoxicillin; jb4 05:17 Codeine; jb4 05:17 PENICILLINS; jb4 - PMHx: 05:17 cirrhosis of liver; alcohol abuse; LIVER CA; jb4 - PSHx: 05:17 Ligation of fallopian tube; Tonsillectomy; Total abdominal hysterectomy; jb4 - Immunization history:: Adult Immunizations up to date. - Social history:: Smoking status: Patient denies any tobacco usage or history of. Patient/guardian denies using alcohol, but has a distant history of alcohol abuse. ROS: 07:24 Constitutional: Negative for fever, chills, and weight loss, Eyes: Negative for injury, kdr pain, redness, and discharge, ENT: Negative for injury, pain, and discharge, Neck: Negative for injury, pain, and swelling, Cardiovascular: Negative for chest pain, palpitations, and edema, Respiratory: Negative for shortness of breath, cough, wheezing, and pleuritic chest pain, Back: Negative for injury and pain, : Negative for injury, bleeding, discharge, and swelling, MS/Extremity: Negative for injury and deformity, Skin: Negative for injury, rash, and discoloration, Neuro: Negative for headache, weakness, numbness, tingling, and seizure activity. Psych: Negative for depression, anxiety, suicide ideation, homicidal ideation, and hallucinations, Allergy/Immunology: Negative for hives, rash, and allergies, Endocrine: Negative for neck swelling, polydipsia, polyuria, polyphagia, and marked weight changes, Hematologic/Lymphatic: Negative for swollen nodes, abnormal bleeding, and unusual bruising. 07:24 Abdomen/GI: Positive for abdominal pain, nausea and vomiting, abdominal cramps, abdominal distension, Negative for anorexia, dysphagia, hematemesis, black/tarry stool, rectal pain, rectal bleeding. Exam: 07:24 Constitutional: This is a well developed, well nourished patient who is awake, alert, kdr and in very mild distress. Head/Face: Normocephalic, atraumatic. Eyes: Pupils equal round and reactive to light, extra-ocular motions intact. Lids and lashes normal. Conjunctiva and sclera are non-icteric and not injected. Cornea within normal limits. Periorbital areas with no swelling, redness, or edema. Neck: Trachea midline, no thyromegaly or masses palpated, and no cervical lymphadenopathy. Supple, full range of motion without nuchal rigidity, or vertebral point tenderness. No Meningismus. Chest/axilla: Normal chest wall appearance and motion. Nontender with no deformity. No lesions are appreciated. Cardiovascular: Regular rate and rhythm with a normal S1 and S2. No gallops, murmurs, or rubs. Normal PMI, no JVD. No pulse deficits. Respiratory: Lungs have equal breath sounds bilaterally, clear to auscultation and percussion. No rales, rhonchi or wheezes noted. No increased work of breathing, no retractions or nasal flaring. Back: No spinal tenderness. No costovertebral tenderness. Full range of motion. Skin: Warm, dry with normal turgor. Normal color with no rashes, no lesions, and no evidence of cellulitis. MS/ Extremity: Pulses equal, no cyanosis. Neurovascular intact. Full, normal range of motion. Neuro: Awake and alert, GCS 15, oriented to person, place, time, and situation. Cranial nerves II-XII grossly intact. Motor strength 5/5 in all extremities. Sensory grossly intact. Cerebellar exam normal. Normal gait. Psych: Awake, alert, with orientation to person, place and time. Behavior, mood, and affect are within normal limits. 07:24 Abdomen/GI: Inspection: distension, Bowel sounds: active, diminished, in all quadrants, Palpation: mild abdominal tenderness. Vital Signs: 05:15 BP 124 / 45; Pulse 79; Resp 20; Temp 97.8(O); Pulse Ox 100% on NC; Weight 76.2 kg (M); jb4 Height 5 ft. 4 in. (R); Pain 08/23; 06:28 BP 113 / 49; Pulse 78; Resp 16; Pulse Ox 98% on R/A; jb4 07:30 BP 115 / 54; Pulse 81; Resp 16 S; Pulse Ox 98% on R/A; aa5 09:00 BP 116 / 38; Pulse 82; Resp 18 S; Temp 98(O); Pulse Ox 98% on R/A; aa5 05:15 Body Mass Index 28.84 (76.20 kg, 162.56 cm) jb4 05:15 Pain Scale: Adult jb4 MDM: 07:22 Patient medically screened. [facility] 07:23 Data reviewed: vital signs, nurses notes. ED course: Family requested transfer back to [facility] in the [facility] since all of her care was being managed from there. 08:50 ED course: Pt signed out to me by Dr. Chang, pending transfer to [facility] for acute [place] failure, accepted for transfer by Dr. Duarte, requests albumin to be given, albumin ordered. . 05/23 05:27 Order name: Basic Metabolic Panel; Complete Time: 07:08 [facility] 05/23 05:27 Order name: CBC with Diff; Complete Time: 07:08 [facility] 05/23 05:27 Order name: LFT's; Complete Time: 07:08 [facility] 05/23 05:27 Order name: Magnesium; Complete Time: 07:08 [facility] 05/23 05:27 Order name: NT PRO-BNP; Complete Time: 07:08 [facility] 05/23 05:27 Order name: Troponin HS; Complete Time: 07:08 [facility] 05/23 05:39 Order name: AMMONIA; Complete Time: 07:08 [facility] 05/23 05:27 Order name: XRAY Chest (1 view) [facility] 05/23 05:27 Order name: EKG; Complete Time: 05:28 kdr 05/23 06:44 Order name: EKG Electrocardiogram EDAR 05/23 05:27 Order name: Cardiac monitoring; Complete Time: 05:42 kdr 05/23 05:27 Order name: EKG - Nurse/Tech; Complete Time: 05:43 kdr 05/23 05:27 Order name: IV Saline Lock; Complete Time: 06:01 kdr 05/23 05:27 Order name: Labs collected and sent; Complete Time: 06:01 kdr 05/23 05:27 Order name: O2 Per Protocol; Complete Time: 06:01 kdr 05/23 05:27 Order name: O2 Sat Monitoring; Complete Time: 06:01 kdr Administered Medications: 06:17 Drug: Furosemide IVP 60 mg Route: IVP; Site: right antecubital; jb4 07:30 Follow up: Response: No adverse reaction aa5 09:34 Drug: Albumin IVPB 50 grams Volume: 100 ml; Route: IVPB; Site: right antecubital; aa5 11:00 Follow up: IV Status: Completed infusion aa5 Disposition Summary: 05/23/23 07:22 Transfer Ordered Transfer Location: [facility] kdr Reason: Higher level of care kdr Condition: Fair kdr Problem: an ongoing problem kdr Symptoms: are unchanged kdr Accepting Physician: alicia(05/23/23 10:51) ld1 Diagnosis - Abdominal pain, Generalized kdr - Alcoholic cirrhosis of liver kdr - Alcoholic cirrhosis of liver with ascites kdr - Liver cancer kdr - Acute kidney injury kdr Discharge Instructions: - Discharge Summary Sheet kl Forms: - SBAR form kl - Medication Reconciliation Form kdr Signatures: Dispatcher [employer] Andrez Scales MD MD kdr Raji Ortiz MD MD rn Yeni Bennett RN RN aa5 Horace Clark RN RN jb4 Narcisa Montenegro RN RN ld1 Corrections: (The following items were deleted from the chart) 07:22 fsf kdr kdr 10:51 07:23 fsf kdr ld1
[2023-05-23] MEDS ORDERED: ALBUMIN HUMAN 25% 0 ML IV ONE ×3 (09:05→09:14)
[2023-05-23] MEDS ORDERED: ALBUMIN HUMAN 25% 100 ML IV SCH (09:15)
[2023-05-23 11:29] VITALS: O2SAT 98
[2023-05-23 11:32] VITALS: BP 116/38; TEMP 98
--- NOTE | 2023-05-23 15:31 | RAD REPORT ---
EXAM DESCRIPTION: RAD - Chest Single View - 05/23/2023 6:10 am COMPARISON: Chest radiograph April 30, 2023 CLINICAL HISTORY: [facility] MAIN DYSPNEA FINDINGS: A single AP view of the chest demonstrates a normal cardiomediastinal silhouette. No pneumothorax or pleural effusion. Perihilar opacities are present. Osseous structures are intact. IMPRESSION: Perihilar opacities may represent mild edema or early pneumonia. Electronically signed by: Cale Blevins MD 05/23/2023 7:59 AM CDT Due to temporary technical issues with the PACS/Fluency reporting system, reports are being signed by the in house radiologist without review as a courtesy to ensure prompt reporting. The interpreting r adiologist is fully responsible for the content of the report.
--- NOTE | 2023-05-23 17:09 | EKG ---
Test Date: 2023-05-23 Test Time: 05:41:16 Hose Handler: CHRISTOPHER MEASUREMENT RESULTS: Intervals: Rate: 79 NH: 196 QRSD: 108 QT: 412 QTc: 472 [place]: P: 23 NH: 196 QRS: -3 T: 51 INTERPRETIVE STATEMENTS: Normal sinus rhythm Low voltage QRS Cannot rule out Anterior infarct, age undetermined Abnormal ECG Compared to ECG 05/02/2023 15:10:04 Myocardial infarct finding now present First degree AV block no longer present Electronically Signed On 05-23-23 17:09:03 CDT by Chao Burris
--- NOTE | 2023-05-23 17:10 | EKG ---
Test Date: 2023-05-23 Test Time: 05:39:59 Agricultural Equipment Sales Engineer: CHRISTOPHER MEASUREMENT RESULTS: Intervals: Rate: 78 NH: QRSD: 92 QT: 398 QTc: 453 [place]: P: NH: QRS: -3 T: 47 INTERPRETIVE STATEMENTS: Sinus rhythm Low voltage QRS Cannot rule out Anterior infarct, age undetermined Abnormal ECG Compared to ECG 05/02/2023 15:10:04 Myocardial infarct finding now present First degree AV block no longer present Electronically Signed On 05-23-23 17:09:26 CDT by Chao Burris
== END 2023-05-23 10:51 | disposition short-term general hospital (02) ==
LOC: ER 04:58
DX: K70.31 Alcoholic cirrhosis of liver with ascites (principal); C22.0 Liver cell carcinoma; N17.9 Acute kidney failure, unspecified; Z88.0 Allergy status to penicillin; Z88.1 Allergy status to other antibiotic agents; Z88.5 Allergy status to narcotic agent
CPT/HCPCS: 96365; 93005 ×2; 85025; 80048; 36415; 82140; 83735; 80076; 84484; 83880; 71045; 96375; 99285; P9047; J1940 ×2